=== PATIENT | female | born 1935 | race Caucasian/White ===

== ENCOUNTER 2017-12-22 13:15 | Emergency (ER) | payer MEDICARE, MEDICAID, SELFPAY ==
[2017-12-22 13:42] LABS: Apearance,Urine Cloudy (Clear); Color,Urine Dark Yellow (Yellow); PH,Urine 5.5 (5.0-8.5); Specific Gravity, Urine 1.025 (1.005-1.030)
[2017-12-22 13:43] LABS: Bilirubin,Urine Negative (Negative); Blood, Urine Negative (Negative); Glucose,Urine (UA) Negative (Negative); Ketones,Urine TRACE (Negative); Protein,Urine Negative (Negative); UTC Leukocyte Esterase,Urine Trace (Negative); UTC Nitrate,Urine Negative (Negative); Urobilinogen,Urine 0.2 EU/dl (0.2)
[2017-12-22 13:44] VITALS: BP 148/61; PULSE 89; RESP 18; TEMP 37.2; O2SAT 96; BMI 51.5
--- NOTE | 2017-12-22 13:58 | HMH.EDUTC ---
[facility] [place] Clinical Impression: UTI (urinary tract infection) Qualifiers: Urinary tract infection type: site unspecified Hematuria presence: without hematuria Qualified Code(s): N39.0 - Urinary tract infection, site not specified Disposition: Home, Self-Care Condition on Discharge: Good Instructions: Urinary Tract Infection Additional Instructions: Drink plenty of water and other fluids Follow up with family doctor Return if needed Take medication as prescribed If you begin to have eppisodes of confusion, fever chills or worsening of symptoms go straight to ER Prescriptions: cephALEXin [Keflex 500mg Cap] 500 mg PO Q12H #20 cap Phenazopyridine HCl [Pyridium] 100 mg PO TID #6 tab Referrals: Yahir Pittman MD [Primary Care Provider] - Time of Disposition: 14:15 Medical Decision Making - Medical Records Medical records reviewed: Yes: I reviewed the patient's medical records. Vital Signs: 12/22/17 13:44 Temperature 98.9 F Temperature Source Temporal Artery Scan Pulse Rate [Right Brachial] 89 Respiratory Rate 18 Blood Pressure [Right Arm] 148/61 Blood Pressure Mean [Right Arm] 90 Blood Pressure Source [Right Arm] Automatic Cuff Blood Pressure Position [Right Arm] Sitting 02 Sat by Pulse Oximetry 96 Oxygen Delivery Method Room Air - Lab Data Lab Results 12/22/17 13:38: Urine Color Dark yellow, Urine Appearance Cloudy, Urine pH 5.5, Ur Specific [place] 1.025, Urine Protein Negative, Urine Glucose (UA) Negative, Urine Ketones Trace, Urine Blood Negative, Urine Nitrate Negative, Urine Bilirubin Negative, Urine Urobilinogen 0.2, Ur Leukocyte Esterase Trace - Eddie Inquiry Pt receiving controlled substance: No Eddie was queried for this patient: No [facility] [place] - General Stated complaint: goodwin when urinates Mode of Arrival: Ambulatory Source of Information: Patient Limitations: No Limitations Description of Symptoms (Recalled from Triage Doc. by RN): painful urination HEENT Symptoms (Recalled from RN notes): No Resp Symptoms (Recalled from RN notes): No Skin Symptoms (Recalled from RN notes): No MS Symptoms (Recalled from RN notes): No Functional Status (Recalled from RN notes): n/a - History of Present Illness Provider Complaint: Patient state that she has a history of UTI State that for last couple of days she has been having burning with urination that has continued to get worse State that she noticed that her pee was a funny color and smelled a little strong State that she came in to get checked early before it got to bad - Related Data Previous Rx's Medication Instructions Recorded Phenazopyridine HCl [Pyridium] 100 mg PO TID #6 tab 12/22/17 cephALEXin [Keflex 500mg Cap] 500 mg PO Q12H #20 cap 12/22/17 Allergies Allergy/AdvReac Type Severity Reaction Status Date / Time No Known Allergies Allergy Verified 12/22/17 13:50 - Worker's Comp Is this a Worker's Comp case?: No [facility] History I have reviewed the patient's past medical history: Yes Medical History: Reports:: Diabetes Mellitus Type 2 Denies:: Diabetes Mellitus Type 1 Amputation: No Fractures: No - *Social History Smoking Status: Never smoker Alcohol Intake: never - Psychiatric History Expresses thoughts of harming self/others: None Suicide Plan Description: No Plan ROS Obtained: Yes All systems reviewed & no additional complaints - Genitourinary Female Genitourinary: Reports urinary frequency, Reports urinary urgency Physical Exam - General General appearance: alert, in no apparent distress - ENT ENT exam: Present: normal exam, normal oropharynx, mucous membranes moist, TM's normal bilaterally, normal external ear exam - Respiratory Respiratory exam: Present: normal lung sounds bilaterally. Absent: respiratory distress - Cardiovascular Cardiovascular exam: Present: regular rate, normal rhythm. Absent: JVD - Abdominal Exam Abdominal exam: Present: soft, normal bowel sounds. Abse
--- NOTE | 2017-12-22 14:05 | ED_ITS ---
[facility] [place] Clinical Impression: UTI (urinary tract infection) Qualifiers: Urinary tract infection type: site unspecified Hematuria presence: without hematuria Qualified Code(s): N39.0 - Urinary tract infection, site not specified Disposition: Home, Self-Care Condition on Discharge: Good Instructions: Urinary Tract Infection Additional Instructions: Drink plenty of water and other fluids Follow up with family doctor Return if needed Take medication as prescribed If you begin to have eppisodes of confusion, fever chills or worsening of symptoms go straight to ER Prescriptions: cephALEXin [Keflex 500mg Cap] 500 mg PO Q12H #20 cap Phenazopyridine HCl [Pyridium] 100 mg PO TID #6 tab Referrals: Yahir Pittman MD [Primary Care Provider] - Time of Disposition: 14:15 Medical Decision Making - Medical Records Medical records reviewed: Yes: I reviewed the patient's medical records. Vital Signs: 12/22/17 13:44 Temperature 98.9 F Temperature Source Temporal Artery Scan Pulse Rate [Right Brachial] 89 Respiratory Rate 18 Blood Pressure [Right Arm] 148/61 Blood Pressure Mean [Right Arm] 90 Blood Pressure Source [Right Arm] Automatic Cuff Blood Pressure Position [Right Arm] Sitting 02 Sat by Pulse Oximetry 96 Oxygen Delivery Method Room Air - Lab Data Lab Results 12/22/17 13:38: Urine Color Dark yellow, Urine Appearance Cloudy, Urine pH 5.5, Ur Specific [place] 1.025, Urine Protein Negative, Urine Glucose (UA) Negative, Urine Ketones Trace, Urine Blood Negative, Urine Nitrate Negative, Urine Bilirubin Negative, Urine Urobilinogen 0.2, Ur Leukocyte Esterase Trace - Eddie Inquiry Pt receiving controlled substance: No Eddie was queried for this patient: No [facility] [place] HPI - General Stated complaint: goodwin when urinates Mode of Arrival: Ambulatory Source of Information: Patient Limitations: No Limitations Description of Symptoms (Recalled from Triage Doc. by RN): painful urination HEENT Symptoms (Recalled from RN notes): No Resp Symptoms (Recalled from RN notes): No Skin Symptoms (Recalled from RN notes): No MS Symptoms (Recalled from RN notes): No Functional Status (Recalled from RN notes): n/a - History of Present Illness Provider Complaint: Patient state that she has a history of UTI State that for last couple of days she has been having burning with urination that has continued to get worse State that she noticed that her pee was a funny color and smelled a little strong State that she came in to get checked early before it got to bad - Related Data Previous Rx's Medication Instructions Recorded Phenazopyridine HCl [Pyridium] 100 mg PO TID #6 tab 12/22/17 cephALEXin [Keflex 500mg Cap] 500 mg PO Q12H #20 cap 12/22/17 Allergies Allergy/AdvReac Type Severity Reaction Status Date / Time No Known Allergies Allergy Verified 12/22/17 13:50 - Worker's Comp Is this a Worker's Comp case?: No [facility] History I have reviewed the patient's past medical history: Yes Medical History: Reports:: Diabetes Mellitus Type 2 Denies:: Diabetes Mellitus Type 1 Amputation: No Fractures: No - *Social History Smoking Status: Never smoker Alcohol Intake: never - Psychiatric History Expresses thoughts of harming self/others: None Suicide Plan Description: No Plan ROS Obtained: Yes All systems reviewed
[2017-12-22 14:41] VITALS: BP 148/61; PULSE 89; RESP 18; TEMP 37.1
== END 2017-12-22 14:41 | disposition home or self-care (01) ==
LOC: ER 13:26 → UTC 13:30
PROVIDERS: Emergency Provider Nurse Practitioner; Family Provider Family Medicine; PCP Family Medicine
DX: N39.0 Urinary tract infection, site not specified (principal); E11.9 Type 2 diabetes mellitus without complications; I10 Essential (primary) hypertension
CPT/HCPCS: G0463; 81003; 99201

== ENCOUNTER 2020-05-03 00:02 | Inpatient (IN) | payer MEDICARE, OTHER, SELFPAY ==
[2020-05-02 23:57] VITALS: BMI 39.4
[2020-05-03] VITALS (14 sets, daily range): BP systolic 117–170; BP diastolic 57–90; PULSE 71–116; RESP 16–20; TEMP 36.4–37.3; O2SAT 92–98; BMI 39.4; BMI 36.6
--- NOTE | 2020-05-03 00:10 | CT_ITS ---
PROCEDURE: CT THORACIC SPINE WO CON CLINICAL HISTORY: fall COMPARISON: No exams were available for comparison TECHNIQUE: Axial images obtained with sagittal and coronal reformats. All CT scans at the facility use one or more dose reduction, viz: automated exposure control, ma/kV adjustment per patient size (including targeted exams where dose is matched to indication, i.e. head), or iterative reconstruction technique. FINDINGS: Degenerative midthoracic scoliosis concave to the left is noted. Joint bases are intact. There is no fracture, dislocation, or significant spinal stenosis. Bilateral subcentimeter lung nodules are noted. The soft tissues are intact. Heart enlarged and the pulmonary arteries are prominent. IMPRESSION: Degenerative thoracic scoliosis, no fracture, pulmonary hypertension, cardiomegaly, bilateral lung nodules Dictated by: Ganga Johnson 05/03/2020 08:49 Electronically signed by Ganga Johnson in [place] 05/03/2020 08:49
--- NOTE | 2020-05-03 00:10 | CT_ITS ---
PROCEDURE: CT LUMBAR SPINE WO CON CLINICAL HISTORY: fall COMPARISON: SPLUMBWO CT lumbar spine wo con from 05/08/2018 TECHNIQUE: Axial images obtained with sagittal and coronal reformats. All CT scans at the facility use one or more dose reduction, viz: automated exposure control, ma/kV adjustment per patient size (including targeted exams where dose is matched to indication, i.e. head), or iterative reconstruction technique. FINDINGS: Degenerative lumbar scoliosis with endplate Modic changes and vacuum joint degenerate narrowing of L3-4 is noted. Mild facet arthropathy is demonstrated. There is no fracture or dislocation. There is a broad-based disc osteophyte complex at L3-4 producing mild right neural foraminal and moderate left neural foraminal stenosis and mild central canal stenosis. There is a broad-based disc protrusion at L4-5 producing mild central canal and mild bilateral neural foraminal stenosis. L5-S1 spondylosis noted without significant spondylolisthesis. There are dense vascular calcifications. There are scattered subcentimeter bone islands throughout the sacrum. IMPRESSION: Degenerative lumbar scoliosis, multilevel spinal stenosis as above, no fracture Dictated by: Ganga Johnson 05/03/2020 08:55 Electronically signed by Ganga Johnson in [place] 05/03/2020 08:55
--- NOTE | 2020-05-03 00:10 | XR_ITS ---
PROCEDURE: XR PELVIS 1-2V CLINICAL INDICATION: fall COMPARISON: No exams were available for comparison TECHNIQUE: XR Pelvis AP View FINDINGS: There is mild degenerative narrowing of both hips. There is a probable 1 centimeter right femoral neck bone island. Retroperitoneal sutures noted. SI joints are sclerotic. There are vascular calcifications. Soft tissues are intact. IMPRESSION: No fracture, mild degenerate narrowing of both hips. Note: If a subtle fracture is suspected CT recommended. Dictated by: Ganga Johnson 05/03/2020 08:35 Electronically signed by Ganga Johnson in [place] 05/03/2020 08:35
--- NOTE | 2020-05-03 00:10 | CT_ITS ---
PROCEDURE: CT HEAD/BRAIN WO CON CLINICAL INDICATION: fall COMPARISON: No exams were available for comparison TECHNIQUE: Axial images obtained. All CT scans at the facility use one or more dose reduction, viz: automated exposure control, ma/kV adjustment per patient size (including targeted exams where dose is matched to indication, i.e. head), or iterative reconstruction technique. FINDINGS: Cortical and cerebellar atrophy and moderate subcortical and periventricular white matter lucency is noted. There are dense vascular calcifications. Calvarium and sinuses are unremarkable. There is no definite evidence of hemorrhage. IMPRESSION: Supratentorial microischemia, cortical and cerebellar atrophy Note: If a subtle CVA is suspected then MR scan recommended. Dictated by: Ganga Johnson 05/03/2020 08:39 Electronically signed by Ganga Johnson in [place] 05/03/2020 08:39
--- NOTE | 2020-05-03 00:10 | XR_ITS ---
PROCEDURE: XR CHEST PORTABLE CLINICAL HISTORY: fall COMPARISON: No exams were available for comparison FINDINGS: Heart is enlarged. There is mild degenerative upper thoracic scoliosis. Lung rodgers and soft tissues are intact IMPRESSION: Mild thoracic scoliosis, cardiomegaly, clear lung rodgers Dictated by: Ganga Johnson 05/03/2020 08:36 Electronically signed by Ganga Johnson in [place] 05/03/2020 08:36
--- NOTE | 2020-05-03 00:10 | CT_ITS ---
PROCEDURE: CT CERVICAL SPINE WO CON CLINICAL INDICATION: fall COMPARISON: No exams were available for comparison TECHNIQUE: Axial images obtained with sagittal and coronal reformats. All CT scans at the facility use one or more dose reduction, viz: automated exposure control, ma/kV adjustment per patient size (including targeted exams where dose is matched to indication, i.e. head), or iterative reconstruction technique. Axial spiral CT scanning performed of the cervical spine beginning at the base of the skull and continuing to the upper T-spine. 3-D multiplanar reconstruction with 3-D manipulation of volumetric data set in image rendering was completed by the radiologist and/or technologist with the supervision of the radiologist on independent workstation. FINDINGS: There is good alignment of the bony structures. There is mild degenerative narrowing of the C5-C6 and C6-C7 disc spaces. Multilevel facet arthropathy is demonstrated. Mild degenerative narrowing of the right C3-4 neural foramina is noted. There is moderate degenerative narrowing of the right C4-5 neural foramina. There is moderate degenerative narrowing of the right C5-C6 neural foramina. There is moderate degenerative narrowing of the right C6-7 neural foramina. There is no fracture or dislocation. The lung apices and soft tissues are unremarkable. There are dense vascular calcifications. IMPRESSION: No fracture or dislocation: Multilevel spinal stenosis as above Dictated by: Ganga Johnson 05/03/2020 08:44 Electronically signed by Ganga Johnson in [place] 05/03/2020 08:44
[2020-05-03 00:12] LABS: Basophils % 0.2 % (0.1-2.0); Eosinophils # 0.1 K/mm3 (0.0-0.4); Eosinophils % 0.3 % (0.1-12.0); Hematocrit 45.5 % (37.0-47.0); Hemoglobin 15.4 g/dL (12.2-16.2); Lymphocytes # 0.9 K/mm3 (0.7-4.5); Lymphocytes % 5.1 % (10-50); Mean Corpuscular HGB Conc 33.9 g/dL (31.8-35.4); Mean Corpuscular Hemoglobin 32.5 pg (27.0-31.2); Mean Corpuscular Volume 95.9 fl (81-99); Mean Platelet Volume 7.6 fl (7.4-10.4); Monocytes # 0.9 K/mm3 (0.1-1.0); Monocytes % 5.1 % (1.7-9.3); Neutrophils # 15.3 K/mm3 (1.8-7.8); Neutrophils % 89.2 % (37.0-80.0); Platelet Count 245 K/mm3 (142-424); Red Blood Count 4.75 M/mm3 (4.20-5.40); Red Cell Distribution Width 13.7 % (11.5-17.5); White Blood Count 17.2 K/mm3 (4.8-10.8)
--- NOTE | 2020-05-03 00:14 | ECG_ITS ---
APPROVED REPORT Exam: Resting ECG HR:110 bpm ECG Measurements Heart Rate 110 AXES QRSd 116 QRS 117 QT 342 T -33 QTc 462 <Conclusion> Atrial fibrillation with rapid ventricular response with premature ventricular or aberrantly conducted complexes Right axis deviation Pulmonary disease pattern Incomplete right bundle branch block Possible Right ventricular hypertrophy Septal infarct, age undetermined ST & T wave abnormality, consider inferior ischemia or digitalis effect ST & T wave abnormality, consider anterolateral ischemia or digitalis effect Abnormal ECG Electronically signed by : Yahir Patrick, 05/03/2020 14:05:48
[2020-05-03 00:16] LABS: Alanine Aminotransferase 317 U/L (12-78); Albumin Level 3.9 g/dl (3.5-5.0); Albumin/Globulin Ratio 1.2 (1.1-1.8); Alkaline Phosphatase 149 U/L (38-126); Anion Gap 13.3 mEq/L (5-15); Aspartate Amino Transferase 620 U/L (14-36); Bilirubin,Total 3.2 mg/dl (0.2-1.3); Blood Urea Nitrogen 29 mg/dl (7-17); Calcium 11.3 mg/dl (8.4-10.2); Carbon Dioxide 23 mmol/L (22.0-30.0); Chloride 102 mmol/L (98-107); Creatinine Clearance Estimated 65 mL/min (50-200); Estimated Glomerular Filt Rate 48 ml/min (>60); GFR (African American) 58 ML/MIN (>60); Globulin 3.3 g/dL (1.3-3.2); Glucose 322 mg/dl (74-100); MANUAL DIFFERENTIAL MANUAL DIFFERENTIAL (MANUAL DIFF); Potassium 4.3 mmoL/L (3.5-5.1); Sodium 134 mmol/L (136-145); Total Protein,Serum 7.2 g/dl (6.3-8.2)
[2020-05-03 00:18] LABS: Microscopic, Urine URINE MICROSCOPIC (MICROSCOPIC)
[2020-05-03 00:23] LABS: Prothrombin Time 21.5 seconds (9.4-11.8)
[2020-05-03 00:27] LABS: Appearance,Urine CLEAR (Clear); Blood, Urine Negative (Negative); Color,Urine YELLOW (Yellow); Glucose,Urine (UA) 3+ (Negative); Ketones,Urine Negative (Negative); Leukocyte Esterase,Urine TRACE (Negative); Nitrate,Urine Negative (Negative); PH,Urine 5.5 (5.0-8.5); Protein,Urine Negative (Negative); Specific Gravity, Urine 1.025 (1.005-1.030)
[2020-05-03 00:28] LABS: Bilirubin,Urine Negative (Negative)
[2020-05-03 00:29] LABS: Troponin I < 0.01 ng/ml (0.00-0.034)
--- NOTE | 2020-05-03 00:55 | HMH.EDFALL ---
ED Disposition Clinical Impression: Severe sepsis with acute organ dysfunction, Transaminasemia, Anticoagulated on Coumadin, Renal insufficiency UTI (urinary tract infection) Qualifiers: Urinary tract infection type: site unspecified Hematuria presence: without hematuria Qualified Code(s): N39.0 - Urinary tract infection, site not specified A-fib Qualifiers: Atrial fibrillation type: unspecified chronic Qualified Code(s): I48.20 - Chronic atrial fibrillation, unspecified Diabetes Qualifiers: Diabetes mellitus type: type 2 Diabetes mellitus senior living insulin use: unspecified exterminator termite insulin use status Diabetes mellitus complication status: with other specified complication Qualified Code(s): E11.69 - Type 2 diabetes mellitus with other specified complication Disposition: Admitted As Inpatient Condition on Discharge: Fair Referrals: Yahir Pittman MD [Primary Care Provider] - - Critical Care Critical Care Time: No Attestation: On 05/03/20, the high probability of a clinically significant, sudden or life threatening deterioration of the following system(s) required my full and direct attention, intervention and personal management. The time I documented below is in addition to time spent performing reported procedures but includes the following listed in this critical care notation. Medical Decision Making - Medical Records Medical records reviewed: Yes: I reviewed the patient's medical records. - Eddie Inquiry Pt receiving controlled substance: No Vital Signs: 05/03/20 00:01 05/03/20 01:00 05/03/20 01:50 Temperature 98.3 F Temperature Source Oral Pulse Rate [Right Brachial] 116 H 92 H 80 Respiratory Rate 16 Blood Pressure [Right Arm] 117/57 L 123/65 130/70 Blood Pressure Mean [Right Arm] 77 84 90 Blood Pressure Source [Right Arm] Automatic Cuff Automatic Cuff Automatic Cuff Blood Pressure Position [Right Arm] Sitting Sitting Sitting 02 Sat by Pulse Oximetry 93 L 94 L 94 L Oxygen Delivery Method Room Air Room Air Room Air 05/03/20 02:08 05/03/20 02:32 Temperature Temperature Source Pulse Rate [Right Brachial] 92 H 90 Respiratory Rate Blood Pressure [Right Arm] 136/69 126/70 Blood Pressure Mean [Right Arm] 91 88 Blood Pressure Source [Right Arm] Automatic Cuff Blood Pressure Position [Right Arm] Sitting 02 Sat by Pulse Oximetry 94 L 95 Oxygen Delivery Method Room Air Room Air - Lab Data Lab results reviewed: Yes: I reviewed the patient's lab results. Lab Results 05/02/20 23:57: WBC 17.2 H, RBC 4.75, Hgb 15.4, Hct 45.5, MCV 95.9, MCH 32.5 H, MCHC 33.9, RDW 13.7, Plt Count 245, MPV 7.6, Neut % (Auto) 89.2 H, Lymph % (Auto) 5.1 L, [place] % (Auto) 5.1, Eos % (Auto) 0.3, Baso % (Auto) 0.2, Neut # (Auto) 15.3 H, Lymph # (Auto) 0.9, [place] # (Auto) 0.9, Eos # (Auto) 0.1, Baso # (Auto) 0.0, Total Counted 100, Neutrophils % (Manual) 89 H, Band Neutrophils % 1.0, Lymphocytes % (Manual) 8 L, Monocytes % (Manual) 2, Platelet Estimate Normal, RBC Morphology Not Reportable, Stomatocytes 1+ 05/02/20 23:57: Sodium 134 L, Potassium 4.3, Chloride 102, Carbon Dioxide 23, Anion Gap 13.3, BUN 29 H, Creatinine 1.10 H, Estimated Creat Clear 65, Estimated GFR 48 L, Est GFR ( Amer) 58 L, Glucose 322 H, Calcium 11.3 H, Total Bilirubin 3.2 H, AST 620 H*, ALT 317 H*, Alkaline Phosphatase 149 H, Troponin I < 0.01, Total Protein 7.2, Albumin 3.9, Globulin 3.3 H, Albumin/Globulin Ratio 1.2 05/03/20 00:00: PT 21.5 H, INR 2.20 H 05/03/20 00:00: TSH 1.39, Thyroxine (T4) 10.0 05/03/20 00:05: Urine Color Yellow, Urine Appearance Clear, Urine pH 5.5, Ur Specific [place] 1.025, Urine Protein Negative, Urine Glucose (UA) 3+, Urine Ketones Negative, Urine Blood Negative, Urine Nitrate Negative, Urine Bilirubin Negative, Urine Urobilinogen 1.0, Ur Leukocyte Esterase Trace, Urine WBC 10-20, Urine Bacteria 4+ 05/03/20 00:20: Lactate 2.7 H 05/03/20 02:10: Chlamy pneumoniae PCR Not detected, Adenovirus (PCR) Not detected, B. pertus
[2020-05-03 01:00] LABS: Bacteria,Urine 4+ /lpf
--- NOTE | 2020-05-03 01:12 | CT_ITS ---
PROCEDURE: CT ABDOMEN PELVIS WO CON CLINICAL INDICATION: liver enzymes COMPARISON: No exams were available for comparison TECHNIQUE: Axial images obtained with sagittal and coronal reformats. All CT scans at the facility use one or more dose reduction, viz: automated exposure control, ma/kV adjustment per patient size (including targeted exams where dose is matched to indication, i.e. head), or iterative reconstruction technique. FINDINGS: There are scattered mostly subcentimeter noncalcified lung nodules of which the largest is in the right lung base, is pleural-based, and measures 23 millimeters x 15 millimeters. Heart is enlarged. The unenhanced liver is unremarkable. Gallstones are present. The adrenal glands, pancreas, and spleen is unremarkable. The patient is status post left nephrectomy. Multiple right renal cysts are demonstrated of which the largest is in the lower pole measuring 15.6 millimeters. The aorta, small and large bowel and appendix is unremarkable. Soft tissues are intact. Degenerative lumbar scoliosis is noted. CT scan of the pelvis without contrast: Patient is status posthysterectomy. There is an indwelling Mcneal catheter within the decompressed bladder. Sigmoid diverticulosis is noted. Soft tissues and bony structures are unremarkable.. 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 Multiple right renal cysts Dictated by: Ganga Johnson 05/03/2020 08:34 Electronically signed by Ganga Johnson in [place] 05/03/2020 08:34
[2020-05-03 01:18] LABS: Lymphocytes % 8 % (10-50); Monocytes % 2 % (2-9); Neutrophils % 89 % (42-76); Platelet Estimate Normal; Stomatocytes 1+; Total Cells Counted 100
[2020-05-03 01:43] LABS: Lactic Acid 2.7 mmol/L (0.7-2.1)
--- NOTE | 2020-05-03 01:57 | PC.NURSE ---
call placed to lab re: order for covid test
[2020-05-03 02:03] LABS: Thyroid Stimulating Hormone 1.39 uIU/mL (0.465-4.68)
[2020-05-03 02:26] LABS: Adenovirus,PCR Not Detected (NotDetected); Bordetella Pertussis Not Detected (NotDetected); Chlamydophila Pneumoniae, PCR Not Detected (NotDetected); Coronavirus 19, PCR Not Detected (NotDetected); Coronavirus 229E Not Detected (NotDetected); Coronavirus NL63 Not Detected (NotDetected); Coronavirus OC43 Not Detected (NotDetected); Coronovirus HKU1,PCR Not Detected (NotDetected); Human Metapneumovirus Not Detected (NotDetected); Influenza A, PCR Not Detected (NotDetected); Influenza AH1, 2009 Not Detected (NotDetected); Influenza AH1, PCR Not Detected (NotDetected); Influenza AH3,PCR Not Detected (NotDetected); Influenza B, PCR Not Detected (NotDetected); Mycoplasma Pneumoniae, PCR Not Detected (NotDected); Parainfluenza 1, PCR Not Detected (NotDetected); Parainfluenza 2, PCR Not Detected (NotDetected); Parainfluenza 3, PCR Not Detected (NotDetected); Parainfluenza 4, PCR Not Detected (NotDetected); Respiratory Syncytial Virus Not Detected (NotDetected); Rhinovirus/Enterovirus Not Detected (NotDetected)
--- NOTE | 2020-05-03 03:31 | PC.NURSE ---
pt agitated and obvious altered mentation. vss. pt refuses to leave bp cuff on arm. frequently yells out I have to pee despite being told repeatedly that she has a cote catheter in place, as well as a UTI diagnosis she has been treated for this shift. GCS 13. Follows commands when staff is at bedside but after staff leaves room, begins hollering out again. Call light has been in place since triage unless she was in staff presence. REiterated how to use multiple times. Remains in reach at this time. SR's up x 2. Patient within visual range of ER staff.
[2020-05-03 03:50] LABS: Troponin I 0.02 ng/ml (0.00-0.034)
[2020-05-03 04:20] LABS: Reflex Lactic Add Lactic Reflex
[2020-05-03 05:16] LABS: Lactic Acid Follow Up (RFLX 1) 2.2 mmol/L (0.7-2.1)
[2020-05-03 06:02] LABS: POC Glucose,Bedside 231 (70-110)
[2020-05-03 07:00] LABS: Reflex Lactic (2 hrs) Add Lactic Reflex
--- NOTE | 2020-05-03 07:04 | HMH.PHAVTE ---
[facility] VTE Monitoring - Patient Demographics Admission date: 05/03/20 Report Date: 05/03/20 Time: 07:04 Allergies/Adverse Reactions: Patient Allergies No Known Allergies Allergy (Verified 05/03/20 00:44) Height: 1.63 m Weight: 97.267 kg Patient Problems: Current Active Problems UTI (urinary tract infection) (Acute) Anticoagulated on Coumadin (Acute) Severe sepsis with acute organ dysfunction (Acute) A-fib (Acute) Transaminasemia (Acute) Diabetes (Acute) Renal insufficiency (Acute) - VTE Risk Labs: VTE Related Lab Results Hgb 15.4 g/dL (12.2-16.2) 05/02/20 23:57 Hct 45.5 % (37.0-47.0) 05/02/20 23:57 Plt Count 245 K/mm3 (142-424) 05/02/20 23:57 PT 21.5 seconds (9.4-11.8) H 05/03/20 00:00 INR 2.20 (0.9-1.1) H 05/03/20 00:00 BUN 29 mg/dl (7-17) H 05/02/20 23:57 Creatinine 1.10 mg/dl (0.52-1.04) H 05/02/20 23:57 Estimated Creat Clear 65 mL/min (50-200) 05/02/20 23:57 Was VTE Risk Assessment Performed: Yes VTE Score: 3 VTE Risk Level: Low Risk - Prophylaxis VTE Prophylaxis Ordered?: Yes Types of VTE Prophylaxis: TEDS Knee High, Pharmacological Location of Applied Device: Bilateral Lower Extremeties Pharmacologic Type: Warfarin - VTE Diagnosis Confirmed Treatment or plan recommended: Continue Current Treatment
[2020-05-03 07:05] LABS: Basophils % 0.2 % (0.1-2.0); Eosinophils # 0.1 K/mm3 (0.0-0.4); Eosinophils % 0.3 % (0.1-12.0); Hemoglobin 14.9 g/dL (12.2-16.2); Lymphocytes # 1.1 K/mm3 (0.7-4.5); Lymphocytes % 7.4 % (10-50); Mean Corpuscular HGB Conc 33.8 g/dL (31.8-35.4); Mean Corpuscular Hemoglobin 32.8 pg (27.0-31.2); Mean Corpuscular Volume 97.1 fl (81-99); Monocytes # 0.6 K/mm3 (0.1-1.0); Monocytes % 3.7 % (1.7-9.3); Neutrophils # 13.4 K/mm3 (1.8-7.8); Neutrophils % 88.5 % (37.0-80.0); Platelet Count 228 K/mm3 (142-424); Red Blood Count 4.53 M/mm3 (4.20-5.40); White Blood Count 15.2 K/mm3 (4.8-10.8)
[2020-05-03 07:06] LABS: Chloride 100 mmol/L (98-107); Potassium 3.8 mmoL/L (3.5-5.1); Sodium 136 mmol/L (136-145)
[2020-05-03 07:09] LABS: Alanine Aminotransferase 448 U/L (12-78); Albumin Level 3.9 g/dl (3.5-5.0); Albumin/Globulin Ratio 1.3 (1.1-1.8); Alkaline Phosphatase 107 U/L (38-126); Anion Gap 13.8 mEq/L (5-15); Aspartate Amino Transferase 676 U/L (14-36); Bilirubin,Total 4.1 mg/dl (0.2-1.3); Blood Urea Nitrogen 23 mg/dl (7-17); Calcium 10.8 mg/dl (8.4-10.2); Carbon Dioxide 26 mmol/L (22.0-30.0); Creatinine Clearance Estimated 67 mL/min (50-200); Estimated Glomerular Filt Rate 53 ml/min (>60); GFR (African American) 64 ML/MIN (>60); Globulin 3.1 g/dL (1.3-3.2); Glucose 214 mg/dl (74-100)
--- NOTE | 2020-05-03 07:09 | HMH.HP ---
*Admission Date: 05/03/20 *Chief complaint: Fall at home *History of present illness: 84-year-old female with history of atrial fibrillation and diabetes presented to the emergency department by ambulance after a fall at home. Patient reports malaise for the last 2 days without fevers or chills. She admits she was getting progressively weaker at home and patient's functional status is already impaired. Patient fell although she admits she does not exactly recall the events of the fall. EMS was called. Patient was found down on the floor when they arrived. Patient was brought to the ER. Work-up in the ER has revealed a urinary tract infection and patient met sepsis criteria and was treated as such. Patient has been admitted on Invanz. Patient herself denies any dysuria, urinary frequency or urgency although she admits the Mcneal catheter that is now present gives her the sensation of needing to urinate. She denies cough, shortness of breath, chest pain, abdominal pain, diarrhea. She does report some back pain. [facility] History I have reviewed the patient's past medical history: Yes Medical History: Reports:: Atrial Fibrillation, Congestive Heart Failure, Diabetes Mellitus Type 2, Hyperlipidemia, Hypertension Denies:: Cancer, Diabetes Mellitus Type 1, MRSA *Have you ever received a pneumonia vaccine?: No *Have you received a flu vaccine this season?: No Other Medical History: Reports: Arthritis Other Surgeries: Yes: No Previous Surgery Amputation: No Fractures: No - *Social History Educational Level: Completed Grade School Smoking Status: Never smoker Alcohol Intake: never *Occupational Status:: retired Housing: house Household Members: spouse *Travel in the last 8 weeks: None Family Hx:: Hyperlipidemia, Hypertension Review of Systems - Review of Systems Review of systems:: pertinent systems reviewed and negative unless documented below - *Neurologic Reports weakness, Denies localized weakness, Denies seizure-like activity Meds Home Medications Medication Instructions Recorded Confirmed Type Amlodipine Besylate [Amlodipine 10 mg PO DAILY 05/03/20 05/03/20 History 10mg Tab] Dapagliflozin Propanediol [Farxiga] 5 mg PO DAILY 05/03/20 05/03/20 History Furosemide [Furosemide 20mg Tab] 20 mg PO DAILY 05/03/20 05/03/20 History Labetalol HCl 200 mg PO BID 05/03/20 05/03/20 History Levothyroxine Sodium 100 mcg PO DAILY 05/03/20 05/03/20 History [Levothyroxine 100mcg (0.1MG) Tab] Sitagliptin Phosphate [Januvia 100 mg PO DAILY 05/03/20 05/03/20 History 100mg tablet] Warfarin Sodium 2.5 mg PO DAILY 05/03/20 05/03/20 History diazePAM [diazePAM 5mg Tablet] 5 mg PO QID 05/03/20 05/03/20 History glipiZIDE [Glipizide] 10 mg PO BID 05/03/20 05/03/20 History lisinopriL [Lisinopril 20mg Tab] 20 mg PO DAILY 05/03/20 05/03/20 History Allergies Allergy/AdvReac Type Severity Reaction Status Date / Time No Known Allergies Allergy Verified 05/03/20 00:44 Exam Vital signs and Labs for Last 24 Hours: Temp Pulse Resp BP Pulse Ox 98.2 F 90 16 121/81 95 05/03/20 04:13 05/03/20 05:20 05/03/20 04:13 05/03/20 04:13 05/03/20 04:40 Laboratory Results - last 24 hr 05/02/20 23:57: WBC 17.2 H, RBC 4.75, Hgb 15.4, Hct 45.5, MCV 95.9, MCH 32.5 H, MCHC 33.9, RDW 13.7, Plt Count 245, MPV 7.6, Neut % (Auto) 89.2 H, Lymph % (Auto) 5.1 L, [place] % (Auto) 5.1, Eos % (Auto) 0.3, Baso % (Auto) 0.2, Neut # (Auto) 15.3 H, Lymph # (Auto) 0.9, [place] # (Auto) 0.9, Eos # (Auto) 0.1, Baso # (Auto) 0.0, Total Counted 100, Neutrophils % (Manual) 89 H, Band Neutrophils % 1.0, Lymphocytes % (Manual) 8 L, Monocytes % (Manual) 2, Platelet Estimate Normal, RBC Morphology Not Reportable, Stomatocytes 1+ 05/02/20 23:57: Sodium 134 L, Potassium 4.3, Chloride 102, Carbon Dioxide 23, Anion Gap 13.3, BUN 29 H, Creatinine 1.10 H, Estimated Creat Clear 65, Estimated GFR 48 L, Est GFR ( Amer) 58 L, Glucose 322 H, Calcium 11.3 H, Total Bilirubin 3.2
[2020-05-03 07:12] LABS: Lactic Acid Follow up (RFLX 2) 2.3 mmol/L (0.7-2.1)
--- NOTE | 2020-05-03 09:29 | HMH.PHAINT ---
MEDICATION RECONCILIATION COMPLETED ON PATIENT USING EXTERNAL FILL HISTORY FROM PHARMACY AND LIST FROM MD OFFICE. -VITO TUTTLED
--- NOTE | 2020-05-03 10:54 | PC.NURSE ---
Pt is restless, pulling off gown, trying to get out of bed, demanding bedpan for urination, refusing IV fluids. Bedpan provided with cote catheter in place, IVF disconnected for now. Reminded pt that she has cote in place, need for IVF, and that she will fall if she rises from bed. Pt is belligerent and confused.
[2020-05-03 11:05] LABS: POC Glucose,Bedside 166 (70-110)
[2020-05-03 16:03] LABS: POC Glucose,Bedside 139 (70-110)
[2020-05-03 20:14] LABS: POC Glucose,Bedside 250 (70-110)
[2020-05-03 21:47] LABS: Amphetamine/Metha Screen,Urine Negative ng/ml (<1000); Barbiturates Screen,Urine Negative ng/ml (<200)
[2020-05-03 21:48] LABS: Benzodiazepines Screen,Urine Positive ng/ml (<200)
[2020-05-03 21:49] LABS: Cannabinoid Screen,Urine Negative ng/ml (<50); Cocaine Screen,Urine Negative ng/ml (<300)
[2020-05-03 21:50] LABS: Methadone Screen,Urine Negative ng/ml (<300)
[2020-05-03 21:51] LABS: Opiate Screen,Urine Negative ng/ml (<300); Phencyclidine Screen,Urine Negative ng/ml (<25)
[2020-05-04] VITALS (7 sets, daily range): BP systolic 117–166; BP diastolic 53–88; PULSE 68–102; RESP 17–22; TEMP 36.6–38.1; O2SAT 93–95; BMI 36.4; BMI 36.5
--- NOTE | 2020-05-04 05:06 | PC.NURSE ---
pt is only oriented to self. Pt is clear throughout, on RA. 16G RAC with NS@100 mls. PRN anixety meds have been given when available. F/C draining yellow urine to gravity. Bed alarm activated.
[2020-05-04 05:37] LABS: POC Glucose,Bedside 202 (70-110)
[2020-05-04 05:56] LABS: Basophils % 0.4 % (0.1-2.0); Eosinophils # 0.1 K/mm3 (0.0-0.4); Eosinophils % 1.2 % (0.1-12.0); Hematocrit 44.5 % (37.0-47.0); Hemoglobin 14.7 g/dL (12.2-16.2); Lymphocytes # 0.9 K/mm3 (0.7-4.5); Mean Corpuscular HGB Conc 32.9 g/dL (31.8-35.4); Mean Corpuscular Hemoglobin 32.2 pg (27.0-31.2); Mean Corpuscular Volume 97.7 fl (81-99); Mean Platelet Volume 7.7 fl (7.4-10.4); Monocytes # 0.5 K/mm3 (0.1-1.0); Neutrophils # 8.5 K/mm3 (1.8-7.8); Neutrophils % 84.4 % (37.0-80.0); Platelet Count 189 K/mm3 (142-424); Red Blood Count 4.55 M/mm3 (4.20-5.40); Red Cell Distribution Width 14.2 % (11.5-17.5); White Blood Count 10.1 K/mm3 (4.8-10.8)
[2020-05-04 06:02] LABS: Chloride 107 mmol/L (98-107); Potassium 3.9 mmoL/L (3.5-5.1); Sodium 137 mmol/L (136-145)
[2020-05-04 06:04] LABS: Blood Urea Nitrogen 15 mg/dl (7-17); Creatinine Clearance Estimated 66 mL/min (50-200); Estimated Glomerular Filt Rate 69 ml/min (>60); GFR (African American) 83 ML/MIN (>60)
[2020-05-04 06:05] LABS: Alanine Aminotransferase 368 U/L (12-78); Albumin Level 3.5 g/dl (3.5-5.0); Alkaline Phosphatase 107 U/L (38-126); Anion Gap 6.9 mEq/L (5-15); Aspartate Amino Transferase 276 U/L (14-36); Bilirubin, Conjugated 0.3 mg/dL (0.0-0.3); Bilirubin,Direct 1.7 mg/dl (0.0-0.4); Bilirubin,Indirect 0.7 mg/dL (0.0-0.9); Bilirubin,Total 2.4 mg/dl (0.2-1.3); Bilirubin,Unconjugated 0.7 mg/dL (0.0-1.1); Calcium 10.3 mg/dl (8.4-10.2); Carbon Dioxide 27 mmol/L (22.0-30.0); Glucose 202 mg/dl (74-100); Total Protein,Serum 6.4 g/dl (6.3-8.2)
--- NOTE | 2020-05-04 08:22 | HMH.ACPN2 ---
Internal Medicine - PN: Subj *Date: 05/04/20 *Time: 08:22 Interval history: Patient reports feeling weak. Patient became confused and agitated yesterday but responded well to her home dose of Valium. This morning patient does not have any specific pain complaints. She denies shortness of breath. Exam Vital signs and Labs for Last 24 Hours: Temp Pulse Resp BP Pulse Ox 100.5 F H 102 H 18 144/84 H 93 L 05/04/20 04:00 05/04/20 04:00 05/04/20 04:00 05/04/20 04:00 05/04/20 04:00 Laboratory Results - last 24 hr 05/03/20 00:05: Urine Color Yellow, Urine Appearance Clear, Urine pH 5.5, Ur Specific [place] 1.025, Urine Protein Negative, Urine Glucose (UA) 3+, Urine Ketones Negative, Urine Blood Negative, Urine Nitrate Negative, Urine Bilirubin Negative, Urine Urobilinogen 1.0, Ur Leukocyte Esterase Trace, Urine WBC 10-20, Urine Bacteria 4+ 05/03/20 00:15: Urine Opiates Screen Negative, Urine Methadone Screen Negative, Ur Barbituates Screen Negative, Ur Phencyclidine Scrn Negative, Ur Amphetamines Screen Negative, U Benzodiazepines Scrn Positive H, Urine Cocaine Screen Negative, U Marijuana (THC) Screen Negative 05/03/20 10:59: POC Glucose 166 H 05/03/20 15:56: POC Glucose 139 H 05/03/20 19:54: POC Glucose 250 H 05/04/20 05:24: POC Glucose 202 H 05/04/20 05:46: WBC 10.1 D, RBC 4.55, Hgb 14.7, Hct 44.5, MCV 97.7, MCH 32.2 H, MCHC 32.9, RDW 14.2, Plt Count 189, MPV 7.7, Neut % (Auto) 84.4 H, Lymph % (Auto) 9.0 L, [place] % (Auto) 5.0, Eos % (Auto) 1.2, Baso % (Auto) 0.4, Neut # (Auto) 8.5 H, Lymph # (Auto) 0.9, [place] # (Auto) 0.5, Eos # (Auto) 0.1, Baso # (Auto) 0.0 05/04/20 05:46: Sodium 137, Potassium 3.9, Chloride 107, Carbon Dioxide 27, Anion Gap 6.9, BUN 15 D, Creatinine 0.80, Estimated Creat Clear 66, Estimated GFR 69, Est GFR ( Amer) 83 D, Glucose 202 H, Calcium 10.3 H, Total Bilirubin 2.4 H, Direct Bilirubin 1.7 H, Conjugated Bilirubin 0.3, Indirect Bilirubin 0.7, Unconjugated Bilirubin 0.7, AST 276 H D, ALT 368 H*, Alkaline Phosphatase 107, Total Protein 6.4, Albumin 3.5 D I & O for Last 24 hours: Intake & Output 05/01/20 05/02/20 05/03/20 05/04/20 11:59 11:59 11:59 11:59 Intake Total 1290 / 1290 805 / 805 Output Total 450 / 450 2100 / 2100 Balance 840 / 840 -1295 / -1295 Weight 214 lb 7 oz 213 lb 9 oz Microbiology Reports for the Last 24 Hours: Microbiology 05/03/20 00:20 Blood Blood Culture - Preliminary Gram Positive Cocci Gram Negative Rods 05/03/20 00:20 Blood Blood Culture - Preliminary Gram Negative Rods 05/03/20 00:05 Urine,Clean Catch Urine Culture - Preliminary Gram Negative Rods Narrative: Patient looks comfortable and in no distress. Lungs are clear. Heart has a regular rate and rhythm. Abdomen is obese and soft. Mcneal catheter is anchored. Transaminases are improving. White count has returned to normal Assessment and Plan (1) Severe sepsis with acute organ dysfunction Current visit: Yes Status: Acute Category: Medical Code(s): A41.9 - Sepsis, unspecified organism; R65.20 - Severe sepsis without septic shock (2) UTI (urinary tract infection) Current visit: Yes Status: Acute Qualifiers: Urinary tract infection type: site unspecified Hematuria presence: without hematuria Qualified Code(s): N39.0 - Urinary tract infection, site not specified Category: Medical Code(s): N39.0 - Urinary tract infection, site not specified (3) A-fib Current visit: Yes Status: Chronic Qualifiers: Atrial fibrillation type: unspecified chronic Qualified Code(s): I48.20 - Chronic atrial fibrillation, unspecified Category: Medical Code(s): I48.91 - Unspecified atrial fibrillation (4) Anticoagulated on Coumadin Current visit: Yes Status: Acute Category: Medical Code(s): Z51.81 - Encounter for therapeutic drug level monitor
--- NOTE | 2020-05-04 09:34 | HMH.PHACONS ---
- Pharmacy Consult Date: 05/04/20 Time: 09:34 Referring provider: DR. MATHEWS/DR. GILBERT Reason for Consult:: VANCOMYCIN DOSING Allergies and ADEs:: Allergies Allergy/AdvReac Type Severity Reaction Status Date / Time No Known Allergies Allergy Verified 05/03/20 00:44 Home Medications:: Home Medications Medication Instructions Recorded Confirmed Type Amlodipine Besylate [Amlodipine 10 mg PO DAILY 05/03/20 05/03/20 History 10mg Tab] Dapagliflozin Propanediol [Farxiga] 5 mg PO DAILY 05/03/20 05/03/20 History Furosemide [Furosemide 20mg Tab] 20 mg PO DAILY 05/03/20 05/03/20 History Labetalol HCl 200 mg PO BID 05/03/20 05/03/20 History Levothyroxine Sodium 100 mcg PO DAILY 05/03/20 05/03/20 History [Levothyroxine 100mcg (0.1MG) Tab] Sitagliptin Phosphate [Januvia 100 mg PO DAILY 05/03/20 05/03/20 History 100mg tablet] Warfarin Sodium 1 mg PO DAILY 05/03/20 05/03/20 History Warfarin Sodium 2.5 mg PO DAILY 05/03/20 05/03/20 History diazePAM [diazePAM 5mg Tablet] 5 mg PO QID 05/03/20 05/03/20 History glipiZIDE [Glipizide] 10 mg PO BID 05/03/20 05/03/20 History lisinopriL [Lisinopril 20mg Tab] 20 mg PO DAILY 05/03/20 05/03/20 History Height: 1.63 m Weight: 96.87 kg Laboratory Results:: Laboratory Results - last 24 hr 05/03/20 00:05: Urine Color Yellow, Urine Appearance Clear, Urine pH 5.5, Ur Specific [place] 1.025, Urine Protein Negative, Urine Glucose (UA) 3+, Urine Ketones Negative, Urine Blood Negative, Urine Nitrate Negative, Urine Bilirubin Negative, Urine Urobilinogen 1.0, Ur Leukocyte Esterase Trace, Urine WBC 10-20, Urine Bacteria 4+ 05/03/20 00:15: Urine Opiates Screen Negative, Urine Methadone Screen Negative, Ur Barbituates Screen Negative, Ur Phencyclidine Scrn Negative, Ur Amphetamines Screen Negative, U Benzodiazepines Scrn Positive H, Urine Cocaine Screen Negative, U Marijuana (THC) Screen Negative 05/03/20 10:59: POC Glucose 166 H 05/03/20 15:56: POC Glucose 139 H 05/03/20 19:54: POC Glucose 250 H 05/04/20 05:24: POC Glucose 202 H 05/04/20 05:46: WBC 10.1 D, RBC 4.55, Hgb 14.7, Hct 44.5, MCV 97.7, MCH 32.2 H, MCHC 32.9, RDW 14.2, Plt Count 189, MPV 7.7, Neut % (Auto) 84.4 H, Lymph % (Auto) 9.0 L, [place] % (Auto) 5.0, Eos % (Auto) 1.2, Baso % (Auto) 0.4, Neut # (Auto) 8.5 H, Lymph # (Auto) 0.9, [place] # (Auto) 0.5, Eos # (Auto) 0.1, Baso # (Auto) 0.0 05/04/20 05:46: Sodium 137, Potassium 3.9, Chloride 107, Carbon Dioxide 27, Anion Gap 6.9, BUN 15 D, Creatinine 0.80, Estimated Creat Clear 66, Estimated GFR 69, Est GFR ( Amer) 83 D, Glucose 202 H, Calcium 10.3 H, Total Bilirubin 2.4 H, Direct Bilirubin 1.7 H, Conjugated Bilirubin 0.3, Indirect Bilirubin 0.7, Unconjugated Bilirubin 0.7, AST 276 H D, ALT 368 H*, Alkaline Phosphatase 107, Total Protein 6.4, Albumin 3.5 D Medical History: Reports:: Atrial Fibrillation, Congestive Heart Failure, Diabetes Mellitus Type 2, Hyperlipidemia, Hypertension Denies:: Cancer, Diabetes Mellitus Type 1, MRSA Assessment and Plan (1) Severe sepsis with acute organ dysfunction Current visit: Yes Status: Acute Category: Medical Code(s): A41.9 - Sepsis, unspecified organism; R65.20 - Severe sepsis without septic shock (2) UTI (urinary tract infection) Current visit: Yes Status: Acute Qualifiers: Urinary tract infection type: site unspecified Hematuria presence: without hematuria Qualified Code(s): N39.0 - Urinary tract infection, site not specified Category: Medical Code(s): N39.0 - Urinary tract infection, site not specified (3) A-fib Current visit: Yes Status: Chronic Qualifiers: Atrial fibrillation type: unspecified chronic Qualified Code(s): I48.20 - Chronic atrial fibrillation, unspecified Category: Medical Code(s): I48.91 - Unspecified atrial fibrillation (4) Anticoagulated on Coumadin Current visit: Yes Status: Acute Category: Medical Code(s): Z51.81 - Encounter for therapeutic drug level monitoring; Z79.01
--- NOTE | 2020-05-04 11:08 | HMH.PTEV ---
Physical Therapy Evaluation Rehab PT IP Evaluation Start: 05/04/20 09:39 Freq: ONCE Status: Active Protocol: Document 05/04/20 11:00 MADELYN (Rec: 05/04/20 11:08 PWGAL [id number]) Subjective/History History History This is the initial IP PT evaluation for Abigail San. Pt is an 84 y/o female who resides at home w/ spouse. Pt was admitted to [facility] through ER for AMS, UTI, and sepsis. Pt has pmh of dementia. Subjective Subjective Pt reports pain in hips and knees Rehab PT IP Eval Objective Appearance Patient Behavior Cooperative Patient Orientation Person,Place,Birthday Difficulty following instructions mild Speech Pattern Appropriate,Soft-Spoken Ambulation Patient Able to Ambulate Yes Ambulation Observation IP General Gait Pattern Observation Wide Based Gait,Ataxic Gait, Shuffling Step Ambulation Distance (feet) 10 Ambulation Assistive Device Rolling Walker Ambulation Ability Moderate x 1 (50% assist) Balance Ability to Arise Able, uses arms to help Sitting Balance Leans or slides in chair Standing Balance Unsteady Dynamic Sitting Balance Ability Fair Dynamic Standing Balance Ability Poor Transfers Bed Transfer Ability Supervision/Stand by,Contact Guard/Hand Hold Chair Transfer Ability Supervision/Stand by,Contact Guard/Hand Hold Sit to Stand Bed Transfer Ability Supervision/Stand by,Contact Guard/Hand Hold Sit to Stand Chair Transfer Ability Supervision/Stand by,Contact Guard/Hand Hold Rehab PT IP prob,goals,plan Problems Date of Evaluation: 05/04/20 PT IP Problems Transfers,Gait,Balance,Self care,Safety Rehab Potential Rehab Potential Poor Equipment Needs Assistive Devices Rolling / Wheeled Walker Plan PT Intervention Plan Transfers,Gait,Therapeutic Exercise PT Plan Frequency BID Duration LOS Discharge Goals Bed Transfer Ability Contact Guard/Hand Hold Sit to Stand Chair Transfer Ability Contact Guard/Hand Hold Ambulation Assistive Device Rolling Walker Ambulation Distance (feet) 15 Discharge Plan PT Discharge Plan Pt is very weak and debilitated but therapist questions how close to
[2020-05-04 11:33] LABS: POC Glucose,Bedside 183 (70-110)
--- NOTE | 2020-05-04 14:01 | PC.NURSE ---
Patient taken out of isolation per Jone Boggs RN due to lab confirmation that blood cx result is contaminated.
[2020-05-04 16:41] LABS: POC Glucose,Bedside 216 (70-110)
--- NOTE | 2020-05-04 16:48 | PC.NURSE ---
PATIENT IS RESTING IN BED AT THIS TIME. WHEN SHE WAKES UP SHE IS UNAWARE OF HER SURROUNDINGS AND CALLS OUT. OTHERWISE SHE IS A&O TO PERSON AND PLACE. SHE HAS BEEN UP TO BSC SEVERAL TIMES TODAY BUT IS UNABLE TO HAVE A BM. SAT IN RECLINER FOR ABOUT 2 HOURS TODAY. CALL LIGHT WITHIN REACH WILL CONTINUE TO MONITOR.
--- NOTE | 2020-05-04 19:10 | PC.NURSE ---
report given to rick
[2020-05-04 21:18] LABS: POC Glucose,Bedside 235 (70-110)
--- NOTE | 2020-05-04 21:31 | PC.NURSE ---
Pt's room air sat at rest = 94%.
--- NOTE | 2020-05-05 03:28 | PC.NURSE ---
Pt is oriented to self,place. Pt lungs are clear throughout denies any SOA. Pt complain of aching all over medicated with PRN pain med, on reassessment pt resting comfortably. F/C draining yellow urine. Pt has ambulated several times to BSC for have a BM but has not been successful. Pt is passing gas.
[2020-05-05 04:00] VITALS: BP 138/67; PULSE 98; RESP 16; TEMP 36.6; O2SAT 92
[2020-05-05 05:00] VITALS: BMI 36.7
[2020-05-05 05:53] LABS: POC Glucose,Bedside 201 (70-110)
[2020-05-05 06:05] LABS: Basophils % 0.5 % (0.1-2.0); Eosinophils # 0.1 K/mm3 (0.0-0.4); Eosinophils % 1.3 % (0.1-12.0); Hematocrit 38.6 % (37.0-47.0); Lymphocytes # 1.4 K/mm3 (0.7-4.5); Lymphocytes % 15.1 % (10-50); Mean Corpuscular HGB Conc 33.8 g/dL (31.8-35.4); Mean Corpuscular Hemoglobin 32.2 pg (27.0-31.2); Mean Corpuscular Volume 95.2 fl (81-99); Mean Platelet Volume 7.8 fl (7.4-10.4); Monocytes # 0.6 K/mm3 (0.1-1.0); Monocytes % 6.6 % (1.7-9.3); Neutrophils # 6.8 K/mm3 (1.8-7.8); Neutrophils % 76.5 % (37.0-80.0); Platelet Count 189 K/mm3 (142-424); Red Blood Count 4.06 M/mm3 (4.20-5.40); Red Cell Distribution Width 13.9 % (11.5-17.5); White Blood Count 8.9 K/mm3 (4.8-10.8)
[2020-05-05 06:15] LABS: Chloride 107 mmol/L (98-107); Potassium 3.9 mmoL/L (3.5-5.1); Sodium 135 mmol/L (136-145)
[2020-05-05 06:17] LABS: Alanine Aminotransferase 224 U/L (12-78); Aspartate Amino Transferase 89 U/L (14-36); Bilirubin,Unconjugated 0.6 mg/dL (0.0-1.1); Blood Urea Nitrogen 14 mg/dl (7-17); Creatinine Clearance Estimated 67 mL/min (50-200); Estimated Glomerular Filt Rate 69 ml/min (>60); GFR (African American) 83 ML/MIN (>60)
[2020-05-05 06:18] LABS: Alkaline Phosphatase 96 U/L (38-126); Anion Gap 6.9 mEq/L (5-15); Bilirubin,Direct 0.7 mg/dl (0.0-0.4); Bilirubin,Indirect 0.6 mg/dL (0.0-0.9); Bilirubin,Total 1.3 mg/dl (0.2-1.3); Calcium 9.8 mg/dl (8.4-10.2); Carbon Dioxide 25 mmol/L (22.0-30.0); Glucose 217 mg/dl (74-100); Total Protein,Serum 5.9 g/dl (6.3-8.2)
--- NOTE | 2020-05-05 07:09 | HMH.ACPN2 ---
Internal Medicine - PN: Subj *Date: 05/05/20 *Time: 07:09 Interval history: Patient has no complaints this morning. She admits she was rather weak with physical therapy yesterday. She has her normal aches and pains which originate in her back. She denies chest pain or shortness of breath. Exam Vital signs and Labs for Last 24 Hours: Temp Pulse Resp BP Pulse Ox 97.9 F 98 H 16 138/67 92 L 05/05/20 04:00 05/05/20 04:00 05/05/20 04:00 05/05/20 04:00 05/05/20 04:00 Laboratory Results - last 24 hr 05/03/20 00:05: Urine Color Yellow, Urine Appearance Clear, Urine pH 5.5, Ur Specific [place] 1.025, Urine Protein Negative, Urine Glucose (UA) 3+, Urine Ketones Negative, Urine Blood Negative, Urine Nitrate Negative, Urine Bilirubin Negative, Urine Urobilinogen 1.0, Ur Leukocyte Esterase Trace, Urine WBC 10-20, Urine Bacteria 4+ 05/04/20 11:26: POC Glucose 183 H 05/04/20 16:33: POC Glucose 216 H 05/04/20 20:47: POC Glucose 235 H 05/05/20 05:35: WBC 8.9, RBC 4.06 L, Hct 38.6, MCV 95.2, MCH 32.2 H, MCHC 33.8, RDW 13.9, Plt Count 189, MPV 7.8, Neut % (Auto) 76.5, Lymph % (Auto) 15.1, [place] % (Auto) 6.6, Eos % (Auto) 1.3, Baso % (Auto) 0.5, Neut # (Auto) 6.8, Lymph # (Auto) 1.4, [place] # (Auto) 0.6, Eos # (Auto) 0.1, Baso # (Auto) 0.0 05/05/20 05:35: Sodium 135 L, Potassium 3.9, Chloride 107, Carbon Dioxide 25, Anion Gap 6.9, BUN 14, Creatinine 0.80, Estimated Creat Clear 67, Estimated GFR 69, Est GFR ( Amer) 83, Glucose 217 H, Calcium 9.8, Total Bilirubin 1.3, Direct Bilirubin 0.7 H, Conjugated Bilirubin 0.0, Indirect Bilirubin 0.6, Unconjugated Bilirubin 0.6, AST 89 H D, ALT 224 H D, Alkaline Phosphatase 96, Total Protein 5.9 L, Albumin 3.0 L D 05/05/20 05:35: POC Glucose 201 H I & O for Last 24 hours: Intake & Output 05/02/20 05/03/20 05/04/20 05/05/20 11:59 11:59 11:59 11:59 Intake Total 1290 / 1290 805 / 805 550 / 550 Output Total 450 / 450 2100 / 2100 1100 / 1100 Balance 840 / 840 -1295 / -1295 -550 / -550 Weight 214 lb 7 oz 213 lb 9 oz 215 lb 3 oz Microbiology Reports for the Last 24 Hours: Microbiology 05/03/20 00:05 Urine,Clean Catch Urine Culture - Final Escherichia coli 05/03/20 00:20 Blood Blood Culture - Preliminary Serratia marcescens 05/03/20 00:20 Blood Blood Culture - Preliminary Staphylococcus hominis Serratia marcescens Narrative: Patient appears comfortable. Lungs are clear. Heart is irregularly irregular. Abdomen is soft. Blood cultures are growing Serratia marcescens. Urine culture has grown E. coli Assessment and Plan (1) Serratia sepsis Current visit: Yes Status: Acute Category: Medical Code(s): A41.53 - Sepsis due to Serratia (2) Severe sepsis with acute organ dysfunction Current visit: Yes Status: Acute Category: Medical Code(s): A41.9 - Sepsis, unspecified organism; R65.20 - Severe sepsis without septic shock (3) UTI (urinary tract infection) Current visit: Yes Status: Acute Qualifiers: Urinary tract infection type: site unspecified Hematuria presence: without hematuria Qualified Code(s): N39.0 - Urinary tract infection, site not specified Category: Medical Code(s): N39.0 - Urinary tract infection, site not specified (4) A-fib Current visit: Yes Status: Chronic Qualifiers: Atrial fibrillation type: unspecified chronic Qualified Code(s): I48.20 - Chronic atrial fibrillation, unspecified Category: Medical Code(s): I48.91 - Unspecified atrial fibrillation (5) Anticoagulated on Coumadin Current visit: Yes Status: Acute Category: Medical Code(s): Z51.81 - Encounter for therapeutic drug level monitoring; Z79.01 - half-way (current) use of anticoagulants (6) Diabetes Current visit: Yes Status: Acute Qualifiers: Diabetes mellitus type: type 2 Diabetes mellitus usp ins
[2020-05-05 07:26] LABS: Hemoglobin 13.2 g/dL (12.2-16.2)
[2020-05-05 08:00] VITALS: BP 124/85; PULSE 94; RESP 18; TEMP 36.7; O2SAT 96
--- NOTE | 2020-05-05 10:54 | SW/DCPLANNER ---
Addendum entered by Laverne Fairchild 05/05/20 13:03: RECEIVED A CALL BACK FROM [facility] AND PATIENT HAS BEEN ACCEPTED. SHE WILL DISCHARGE THERE VIA AMBULANCE... Original Note: SPOKE WITH TODAY AND HE IS IN AGREEMENT FOR ME TO SEND PATIENTS INFORMATION TO [facility] FOR SOME SKILLED REHAB.. HER PLAN IS TO RETURN BACK HOME ONCE HER REHAB IS COMPLETED.. WAITING ON [facility] TO GIVE ME A CALL BACK...
[2020-05-05 11:10] LABS: POC Glucose,Bedside 202 (70-110)
[2020-05-05 11:50] VITALS: BP 132/60; PULSE 89; RESP 18; TEMP 36.7; O2SAT 98
--- NOTE | 2020-05-05 12:01 | HMH.DCSUM ---
General - General Admission date:: 05/03/20 Discharge date: 05/05/20 HPI HPI: 84-year-old female with history of atrial fibrillation and diabetes presented to the emergency department by ambulance after a fall at home. Patient reports malaise for the last 2 days without fevers or chills. She admits she was getting progressively weaker at home and patient's functional status is already impaired. Patient fell although she admits she does not exactly recall the events of the fall. EMS was called. Patient was found down on the floor when they arrived. Patient was brought to the ER. Work-up in the ER has revealed a urinary tract infection and patient met sepsis criteria and was treated as such. Patient has been admitted on Invanz. Patient herself denies any dysuria, urinary frequency or urgency although she admits the Mcneal catheter that is now present gives her the sensation of needing to urinate. She denies cough, shortness of breath, chest pain, abdominal pain, diarrhea. She does report some back pain. Hospital Course Hospital Course: Patient admitted for treatment of sepsis. Started on Invanz. Cultures grew Serratia sensitive to Invanz but patietn will transition to Ceftriaxone 1gm IV daily until 05/10/20. Patient has spinal stenosis which makes ambulating difficult at baseline. Patient was weakened by her illness. PT evaluated patient and recommended SNF for PT to return to prior level of function. Patient had UTI growing e.coli. This is also sensitive to Rocephin. Patient has diabetes that is uncontrolled due to poor diet. glucose while hospitalized were under control. Patient had elevated LFT's on admission. This is believed to be due to sepsis. LFT's normalized. On 05/05/20 patient was accepted at [facility] to continue IV antibiotics and recieve PT. Mental Status: Average Rehab Pot.: Fair Prognosis: Good Objective Vital signs: Temp Pulse Resp BP Pulse Ox 98.1 F 89 18 132/60 98 05/05/20 11:50 05/05/20 11:50 05/05/20 11:50 05/05/20 11:50 05/05/20 11:50 Results Labs on day of discharge: Labs from last 24 hours 05/05/20 05/05/20 05/05/20 10:58 05:35 05:35 WBC RBC Hgb Hct MCV MCH MCHC RDW Plt Count MPV Neut % (Auto) Lymph % (Auto) [place] % (Auto) Eos % (Auto) Baso % (Auto) Neut # (Auto) Lymph # (Auto) [place] # (Auto) Eos # (Auto) Baso # (Auto) Sodium 135 L Potassium 3.9 Chloride 107 Carbon Dioxide 25 Anion Gap 6.9 BUN 14 Creatinine 0.80 Estimated Creat Clear 67 Estimated GFR 69 Est GFR ( Amer) 83 Glucose 217 H POC Glucose 202 H 201 H Calcium 9.8 Total Bilirubin 1.3 Direct Bilirubin 0.7 H Conjugated Bilirubin 0.0 Indirect Bilirubin 0.6 Unconjugated Bilirubin 0.6 AST 89 H D ALT 224 H D Alkaline Phosphatase 96 Total Protein 5.9 L Albumin 3.0 L D 05/05/20 05/04/20 05/04/20 05:35 20:47 16:33 WBC 8.9 RBC 4.06 L Hgb 13.2 D Hct 38.6 MCV 95.2 MCH 32.2 H MCHC 33.8 RDW 13.9 Plt Count 189 MPV 7.8 Neut % (Auto) 76.5 Lymph % (Auto) 15.1 [place] % (Auto) 6.6 Eos % (Auto) 1.3 Baso % (Auto) 0.5 Neut # (Auto) 6.8 Lymph # (Auto) 1.4 [place] # (Auto) 0.6 Eos # (Auto) 0.1 Baso # (Auto) 0.0 Sodium Potassium Chloride Carbon Dioxide Anion Gap BUN Creatinine Estimated Creat Clear Estimated GFR Est GFR ( Amer) Glucose POC Glucose 235 H 216 H Calcium Total Bilirubin Direct Bilirubin Conjugated Bilirubin Indirect Bilirubin Unconjugated Bilirubin AST ALT Alkaline Phosphatase Total Protein Albumin Preliminary micro results at discharge 05/03/20 00:20 Blood Culture - Preliminary Blood Serratia marcescens 05/03/20 00:20 Blood Culture - Preliminary Blood Staphylococcu
--- NOTE | 2020-05-05 14:11 | PC.NURSE ---
PATIENT ASKED ON MULTIPLE OCCASIONS WHERE IT IS SHE IS BEING DISCHARGED TO. PATIENT SOMEWHAT FORGETFUL. AWARE OF PATIENTS DISCHARGE PLAN AND IS CONCERNED SHE WILL NEED LONGER THAN ANTICIPATED TIME TO COMPLETE IV ABX. ALL BELONGINGS WERE SENT WITH PATIENTS . REPORT CALLED TO MAIK GLEZ AT [facility].
== END 2020-05-05 14:09 | DRG 689 ==
LOC: ER 03:56 → 2ND 04:10
PROVIDERS: Admitting Provider Family Medicine; Emergency Provider Emergency Medicine; PCP Family Medicine; Visit Provider Family Medicine
DX: N39.0 Urinary tract infection, site not specified (principal); A41.53 Sepsis due to Serratia; R65.20 Severe sepsis without septic shock; I48.20 Chronic atrial fibrillation, unspecified; I50.9 Heart failure, unspecified; I11.0 Hypertensive heart disease with heart failure; E11.65 Type 2 diabetes mellitus with hyperglycemia; Z79.01 Long term (current) use of anticoagulants; E03.9 Hypothyroidism, unspecified; Z79.4 Long term (current) use of insulin; Z91.81 History of falling; M48.00 Spinal stenosis, site unspecified
CPT/HCPCS: 36415; 70450; 71045; 72125; 72128; 72131; 72170; 74176; 80048; 80053; 80076; 80305; 81001; 82962; 83605; 83735; 84436; 84443; 84484; 85007; 85025; 85610; 87040; 87077; 87086; 87088; 87186; 87581; 87633; 87798; 93005; 96365; 97162; 99285; J1335; J3370

== ENCOUNTER 2021-03-08 20:58 | Inpatient (IN) | payer MEDICARE, MEDICAID, SELFPAY ==
[2021-03-08] VITALS (7 sets, daily range): BP systolic 178–207; BP diastolic 101–120; PULSE 5–132; RESP 15–19; TEMP 36.4; O2SAT 96–99; BMI 26.6
--- NOTE | 2021-03-08 21:06 | ECG_ITS ---
APPROVED REPORT Exam: Resting ECG HR:124 bpm ECG Measurements Heart Rate 124 AXES QRSd 108 QRS 129 QT 336 T -43 QTc 482 Conclusion Atrial fibrillation with rapid ventricular response with premature ventricular or aberrantly conducted complexes Low voltage QRS Right bundle branch block T wave abnormality, consider inferior ischemia or digitalis effect Abnormal ECG Electronically signed by : Yahir Patrick, 03/09/2021 21:17:37
--- NOTE | 2021-03-08 21:22 | HMH.EDFALL ---
ED Disposition Clinical Impression: Essential hypertension, RBBB (right bundle branch block with left anterior fascicular block), Hypercalcemia, SIRS (systemic inflammatory response syndrome) Fall Qualifiers: Encounter type: initial encounter Qualified Code(s): W19.XXXA - Unspecified fall, initial encounter A-fib Qualifiers: Atrial fibrillation type: unspecified chronic Qualified Code(s): I48.20 - Chronic atrial fibrillation, unspecified Diabetes Qualifiers: Diabetes mellitus type: type 2 Diabetes mellitus terminal manager insulin use: unspecified terminal manager insulin use status Diabetes mellitus complication status: with other specified complication Qualified Code(s): E11.69 - Type 2 diabetes mellitus with other specified complication Rhabdomyolysis Qualifiers: Rhabdomyolysis type: non-traumatic Qualified Code(s): M62.82 - Rhabdomyolysis DJD (degenerative joint disease), lumbar Qualifiers: Spinal osteoarthritis complication: with radiculopathy Qualified Code(s): 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 The time I documented below is in addition to time spent performing reported procedures but includes the following listed in this critical care notation. Medical Decision Making - Medical Records Medical records reviewed: Yes: I reviewed the patient's medical records. - Eddie Inquiry Pt receiving controlled substance: No Vital Signs: 03/08/21 20:54 03/08/21 22:13 03/08/21 22:15 Temperature 97.5 F L Temperature Source Rectal Pulse Rate 132 H 118 H Pulse Rate [Right] 5 L Respiratory Rate 16 16 15 Blood Pressure Blood Pressure [Right Arm] 178/101 H Blood Pressure Mean Blood Pressure Mean [Right Arm] 126 02 Sat by Pulse Oximetry 99 99 99 Oxygen Delivery Method Room Air 03/08/21 22:25 03/08/21 22:30 03/08/21 22:31 Temperature Temperature Source Pulse Rate 119 H 114 H 123 H Pulse Rate [Right] Respiratory Rate 19 19 15 Blood Pressure 191/106 H 207/119 H Blood Pressure [Right Arm] Blood Pressure Mean 133 148 Blood Pressure Mean [Right Arm] 02 Sat by Pulse Oximetry 99 99 99 Oxygen Delivery Method 03/08/21 23:13 03/09/21 00:10 Temperature Temperature Source Pulse Rate 109 H 115 H Pulse Rate [Right] Respiratory Rate 16 16 Blood Pressure 192/120 H 160/90 H Blood Pressure [Right Arm] Blood Pressure Mean 138 Blood Pressure Mean [Right Arm] 02 Sat by Pulse Oximetry 96 98 Oxygen Delivery Method Room Air - Lab Data Lab results reviewed: Yes: I reviewed the patient's lab results. Lab Results 03/08/21 21:10: WBC 16.8 H, RBC 4.49, Hgb 14.0, Hct 43.4, MCV 96.7, MCH 31.1, MCHC 32.2, RDW 13.9, Plt Count 298, MPV 8.9, Neut % (Auto) 92.1 H, Lymph % (Auto) 4.3 L, [place] % (Auto) 3.2, Eos % (Auto) 0.2, Baso % (Auto) 0.4, Neut # (Auto) 15.5 H, Lymph # (Auto) 0.7, [place] # (Auto) 0.5, Eos # (Auto) 0.0, Baso # (Auto) 0.1, Total Counted 100, Neutrophils % (Manual) 93 H, Lymphocytes % (Manual) 6 L, Eosinophils % (Manual) 1, Platelet Estimate Normal, Stomatocytes 1+, ESR 41 H 03/08/21 21:10: PT 12.6 H, INR 1.07 03/08/21 21:10: Sodium 135 L, Potassium 3.4 L, Chloride 101, Carbon Dioxide 21 L, Anion Gap 16.4 H, BUN 20 H, Creatinine 0.80, Estimated Creat Clear 49, Estimated GFR 69, Est GFR ( Amer) 83, Glucose 311 H, Calcium 12.3 H*, Total Bilirubin 0.6, AST 33, ALT 20, Alkaline Phosphatase 90, CK-MB (CK-2) 3.8 H, C-Reactive Protein 5.2 H, Total Protein 7.1, Albumin 4.2, Globulin 2.9, Albumin/Globulin Ratio 1.4, Procalcitonin 0.074 03/08/21 21:10: Urine Color Yellow, Urine Appearance Clear, Urine pH 6.0, Ur Specific [place] 1.025, Urine P
--- NOTE | 2021-03-08 21:23 | CT_ITS ---
PROCEDURE INFORMATION: Exam: CT Cervical Spine Without Contrast Exam date and time: 03/08/2021 9:23 PM Age: 85 years old Clinical indication: Injury or trauma; Blunt trauma; Injury date: 03/08/2021; Patient HX: Fall trauma protocol TECHNIQUE: Imaging protocol: Computed tomography images of the cervical spine without contrast. Radiation optimization: All CT scans at this facility use at least one of these dose optimization techniques: automated exposure control; mA and/or kV adjustment per patient size (includes targeted exams where dose is matched to clinical indication); or iterative reconstruction. COMPARISON: CT CERVICAL SPINE WO CON 05/03/2020 12:38 AM FINDINGS: Bones/joints: Vertebral body height and AP alignment is preserved. Moderate degenerative change about the dens. Mild prevertebral osteophytosis. There are bilateral facet joint degenerative changes. No acute cervical spine fracture. Discs/Spinal canal/Neural foramina: No definite significant central canal stenosis within limitations of technique. Thyroid: Heterogeneous thyroid gland. Lungs: There are several nodules at the lung apices measuring up to 5 mm. Pleural spaces: No visible pneumothorax. Vasculature: Vascular calcification. Soft tissues: Unremarkable. IMPRESSION: 1. No acute cervical spine fracture. 2. Several lung nodules at the lung apices measure up to 5 mm. For patients at low risk (minimal or absent history of smoking and of other known risk factors), no routine follow-up is indicated. For patients at high risk (history of smoking or of other known risk factors), consider optional CT Chest at 12 months. (Reference: Brad) REFERENCES: Josephholili Browne, et al. Guidelines for Management of Incidental Pulmonary Nodules Detected on CT Images: From the Fleischner Society 2017. Radiology. 2017;284(1):228-243.
--- NOTE | 2021-03-08 21:23 | CT_ITS ---
PROCEDURE INFORMATION: Exam: CT Head Without Contrast Exam date and time: 03/08/2021 9:23 PM Age: 85 years old Clinical indication: Injury or trauma; Fall; Blunt trauma (contusions or hematomas); Without loss of consciousness; Injury date: 03/08/2021; Injury details: Fell trauma protocol TECHNIQUE: Imaging protocol: Computed tomography of the head without contrast. Radiation optimization: All CT scans at this facility use at least one of these dose optimization techniques: automated exposure control; mA and/or kV adjustment per patient size (includes targeted exams where dose is matched to clinical indication); or iterative reconstruction. COMPARISON: CT HEAD/BRAIN WO CON 05/03/2020 12:35 AM FINDINGS: Brain: Decreased attenuation of the supratentorial white matter is likely secondary to chronic microvascular ischemia. No acute intracranial hemorrhage. Cerebral ventricles: Ventricular and subarachnoid spaces are age appropriate. Bones/joints: Unremarkable. No acute fracture. Paranasal sinuses: Visualized sinuses are unremarkable. No fluid levels. Mastoid air cells: Visualized mastoid air cells are well aerated. Vasculature: Intracranial vascular calcification. Soft tissues: Unremarkable. IMPRESSION: No acute intracranial abnormality.
--- NOTE | 2021-03-08 21:23 | XR_ITS ---
PROCEDURE INFORMATION: Exam: XR Chest Exam date and time: 03/08/21 09:23 PM Age: 85 years old Clinical indication: Injury or trauma; Fall; Blunt trauma (contusions or hematomas); Injury date: 03/08/2021; Injury details: Fell trauma protocol TECHNIQUE: Imaging protocol: XR of the chest. Views: 1 view. COMPARISON: CR XR CHEST PORTABLE 05/03/20 12:51 AM FINDINGS: Lungs: Unremarkable. No consolidation. Pleural spaces: Unremarkable. No pleural effusion. No pneumothorax. Heart/Mediastinum: Cardiomegaly. Bones/joints: Unremarkable. IMPRESSION: No significant interval change since 05/03/2020.
--- NOTE | 2021-03-08 21:24 | XR_ITS ---
PROCEDURE INFORMATION: Exam: XR Pelvis Exam date and time: 03/08/21 09:24 PM Age: 85 years old Clinical indication: Injury or trauma; Fall; Blunt trauma (contusions or hematomas); Right; Injury date: 03/08/2021; Injury details: Fell complaining of RT leg and hip pain TECHNIQUE: Imaging protocol: XR pelvis. Views: 1 or 2 view. COMPARISON: CT ABDOMEN PELVIS WO CON 05/03/20 01:28 AM FINDINGS: Bones/joints: Bone island right femoral neck. No acute fracture. Soft tissues: Unremarkable. IMPRESSION: No acute findings. Osseous demineralization limits evaluation only slightly.
[2021-03-08 21:36] LABS: Basophils # 0.1 K/mm3 (0-0.2); Basophils % 0.4 % (0.1-2.0); Eosinophils % 0.2 % (0.1-12.0); Hematocrit 43.4 % (37.0-47.0); Lymphocytes # 0.7 K/mm3 (0.7-4.5); Lymphocytes % 4.3 % (10-50); Mean Corpuscular HGB Conc 32.2 g/dL (31.8-35.4); Mean Corpuscular Hemoglobin 31.1 pg (27.0-31.2); Mean Corpuscular Volume 96.7 fl (81-99); Mean Platelet Volume 8.9 fl (7.4-10.4); Monocytes # 0.5 K/mm3 (0.1-1.0); Monocytes % 3.2 % (1.7-9.3); Neutrophils # 15.5 K/mm3 (1.8-7.8); Neutrophils % 92.1 % (37.0-80.0); Platelet Count 298 K/mm3 (142-424); Red Blood Count 4.49 M/mm3 (4.20-5.40); Red Cell Distribution Width 13.9 % (11.5-17.5); White Blood Count 16.8 K/mm3 (4.8-10.8)
[2021-03-08 21:42] LABS: Alanine Aminotransferase 20 U/L (12-78); Albumin Level 4.2 g/dl (3.5-5.0); Albumin/Globulin Ratio 1.4 (1.1-1.8); Alkaline Phosphatase 90 U/L (38-126); Anion Gap 16.4 mEq/L (5-15); Aspartate Amino Transferase 33 U/L (14-36); Bilirubin,Total 0.6 mg/dl (0.2-1.3); Blood Urea Nitrogen 20 mg/dl (7-17); Carbon Dioxide 21 mmol/L (22.0-30.0); Chloride 101 mmol/L (98-107); Creatinine Clearance Estimated 49 mL/min (50-200); Estimated Glomerular Filt Rate 69 ml/min (>60); GFR (African American) 83 ML/MIN (>60); Globulin 2.9 g/dL (1.3-3.2); Glucose 311 mg/dl (74-100); Potassium 3.4 mmoL/L (3.5-5.1); Sodium 135 mmol/L (136-145); Total Protein,Serum 7.1 g/dl (6.3-8.2)
[2021-03-08 21:45] LABS: MANUAL DIFFERENTIAL MANUAL DIFFERENTIAL (MANUAL DIFF)
[2021-03-08 21:47] LABS: C-Reactive Protein 5.2 mg/L (0-4); Calcium 12.3 mg/dl (8.4-10.2)
[2021-03-08 21:49] LABS: INR 1.07 (0.9-1.1); Prothrombin Time 12.6 seconds (10.1-12.5)
[2021-03-08 21:53] LABS: Creatine Kinase MB 3.8 ng/ml (0.0-2.03)
[2021-03-08 22:01] LABS: Procalcitonin 0.074 ng/mL (0.0-2.0)
[2021-03-08 22:06] LABS: Eosinophils % 1 % (0-3); Lymphocytes % 6 % (10-50); Neutrophils % 93 % (42-76); Platelet Estimate Normal; Stomatocytes 1+; Total Cells Counted 100
[2021-03-08 22:11] LABS: Microscopic, Urine URINE MICROSCOPIC (MICROSCOPIC)
[2021-03-08 22:13] LABS: Erythrocyte Sedimentation Rate 41 mm/hr (0-30)
[2021-03-08 22:15] LABS: Appearance,Urine CLEAR (Clear); Bilirubin,Urine Negative (Negative); Blood, Urine 2+ (Negative); Color,Urine YELLOW (Yellow); Glucose,Urine (UA) 3+ (Negative); Ketones,Urine 1+ (Negative); Leukocyte Esterase,Urine Negative (Negative); Nitrate,Urine Negative (Negative); Protein,Urine Negative (Negative); Specific Gravity, Urine 1.025 (1.005-1.030); Urobilinogen,Urine 0.2 EU/dl (0.2)
[2021-03-08 22:23] LABS: Bacteria,Urine Trace /lpf; Squamous Epithelial Cell,Urine Occasional #/hpf (0-5); WBC,Urine Occasional #/hpf (0-3)
--- NOTE | 2021-03-08 22:29 | CT_ITS ---
PROCEDURE INFORMATION: Exam: CT Right Lower Extremity Without Contrast, Hip Exam date and time: 03/08/2021 10:29 PM Age: 85 years old Clinical indication: Injury or trauma; Fall; Blunt trauma; Right; Injury date: 03/08/2021; Injury details: Fell pain RT hip TECHNIQUE: Imaging protocol: CT of the Right lower extremity without contrast was performed. Exam focused on the hip. 3D rendering (Not supervised by radiologist): MIP and/or 3D reconstructed images were created by the technologist. Radiation optimization: All CT scans at this facility use at least one of these dose optimization techniques: automated exposure control; mA and/or kV adjustment per patient size (includes targeted exams where dose is matched to clinical indication); or iterative reconstruction. COMPARISON: CT ABDOMEN PELVIS WO CON 05/03/2020 1:28 AM FINDINGS: Tubes, catheters and devices: Urinary bladder is decompressed by a Mcneal catheter. Bones/joints: Osteopenia. Small sclerotic focus at the proximal right femur, probably enostosis. Mild degenerative change. No acute fracture. No dislocation. No osseous destruction. Soft tissues: Normal. Vasculature: Vascular calcification. Bowel: Diverticulosis. Reproductive: Previous hysterectomy. IMPRESSION: No acute osseous abnormality.
[2021-03-08 23:42] LABS: Hemoglobin A1C 7.8 % (4.0-6.0)
[2021-03-08 23:43] LABS: Creatine Kinase 667 U/L (30-135)
[2021-03-08 23:58] LABS: Troponin I 0.01 ng/ml (0.00-0.034)
[2021-03-08 23:58] LABS: Lactic Acid 1.4 mmol/L (0.7-2.1)
[2021-03-09] VITALS (21 sets, daily range): BP systolic 96–184; BP diastolic 42–90; PULSE 50–130; RESP 14–18; TEMP 36.4–37.1; O2SAT 94–100
--- NOTE | 2021-03-09 | IR_ITS ---
APPROVED REPORT Patient Location: Inpatient Manager Enterprise Content Management: MARYANA Pandya RT (R) PROCEDURES Left femoral arterial access Catheter placement to the right common femoral artery Right common femoral artery angiogram Unilateral runoff to the right foot Placement of aspiration catheter in the right popliteal artery right superficial femoral artery right common femoral artery and right profunda femoris artery Thrombus aspiration/thrombectomy of the right popliteal artery right superficial femoral artery right common femoral artery and right profunda femoris Stent deployment to the right popliteal tibial arterial trunk Stent deployment to the right popliteal artery Stent deployment to the right superficial femoral artery Angioplasty to the right profunda femoris artery INDICATION 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 COMPLICATIONS NONE Estimated Blood Loss: LESS THAN 10 ML TECHNIQUE 1% lidocaine used to anesthetize the left femoral groin. The left femoral artery was accessed via the Seldinger technique. A 6 [place]er sheath was placed in the left femoral artery. A rim catheter was advanced to the distal abdominal aorta and an advantage wire was advanced into the right femoral artery. The sheath and catheter were advanced and angiography was performed which demonstrated thrombosis at the level of the right femoral artery. Therapeutic heparin was administered giving a therapeutic ACT and an advantage wire was placed into the right superficial femoral artery. A penumbra catheter was advanced and passed up and down the femoral artery and superficial femoral artery to remove a large amount of thrombus. This did restore flow into the proximal SFA however the entire leg was thrombosed therefore the catheter was advanced down into the popliteal artery where thrombus continue to be aspirated. This was also advanced into the popliteal artery and PT trunk. A 6 mm x 100 mm self-expanding EV 3 stent was placed in the right superficial femoral artery followed by an additional 6 mm x 100 mm stent placed distal to this. Unfortunately this did not overlap therefore a 6 mm x 20 mm self-expanding stent was used to connect the 2 stents. An additional 5 mm x 80 mm self-expanding stent was then placed into the distal popliteal artery into the PT trunk and deployed. 5 mm balloons were used to post dilate. After SFA flow and lower extremity flow was restored the profunda femoris artery was then worked on. A wire was placed into the profunda femoris artery and a 4 mm balloon was inflated up and down the profunda femoris artery. The same penumbra aspiration catheter was advanced and thrombus was aspirated throughout the profunda femoris restoring flow. After achieving excellent angiographic results the apparatus was removed the sheath was pulled back the groin was reprepped gloves were changed sheath was removed good hemostasis was achieved using Perclose device patient was transferred to the postop holding in stable addition ANGIOGRAPHIC RESULTS The right common femoral artery is occluded at mid vessel The right superficial femoral artery is thrombosed The right popliteal artery is completely thrombosed The right profunda femoris artery is thrombosed The right PT trunk is thrombosed with no distal flow At the end of the procedure the right common femoral artery is widely patent with wide and inline flow into the superficial femoral artery which was widely patent. The mid SFA then had a stent which extended in a contig
--- NOTE | 2021-03-09 00:16 | CT_ITS ---
PROCEDURE INFORMATION: Exam: CT Lumbar Spine Without Contrast Exam date and time: 03/09/2021 12:16 AM Age: 85 years old Clinical indication: Low back pain and other: RT hip and leg; Patient HX: PT fell pain low back and RT hip and leg; Additional info: Fall TECHNIQUE: Imaging protocol: Computed tomography images of the lumbar spine without contrast. Radiation optimization: All CT scans at this facility use at least one of these dose optimization techniques: automated exposure control; mA and/or kV adjustment per patient size (includes targeted exams where dose is matched to clinical indication); or iterative reconstruction. COMPARISON: CT LUMBAR SPINE WO CON 05/03/2020 12:44 AM FINDINGS: Vertebrae: Mild levoconvex curvature. Grade 1 anterolisthesis of L4 on L5. Remainder demonstrates preserved height and AP alignment. There is degenerative endplate irregularity, similar from prior examination. No acute fracture. Mild prevertebral osteophytosis. There are bilateral facet joint degenerative changes. Discs/Spinal canal/Neural foramina: Central canal stenosis greatest at L2-L3, likely moderate. Kidneys and ureters: Previous left-sided nephrectomy. Right-sided hydroureteronephrosis, no discrete obstructing calculus is visualized. Stomach and bowel: Diverticulosis without visible diverticulitis. Reproductive: Probable hysterectomy. Vasculature: Vascular calcification. Soft tissues: See Vertebrae finding. Other findings: There is nonspecific thickening involving the bilateral adrenal glands. IMPRESSION: No acute osseous abnormality.
[2021-03-09 00:36] LABS: T4 (Thyroxine) 11.9 ug/dl (5.53-11.0)
[2021-03-09 00:50] LABS: Thyroid Stimulating Hormone 1.55 uIU/mL (0.465-4.68)
--- NOTE | 2021-03-09 02:10 | PC.NURSE ---
spoke with laura from pharmacy about lovenox dosage
--- NOTE | 2021-03-09 02:30 | PC.NURSE ---
PT ARRIVED TO FLOOR VIA STRETCHER FROM ED W/STAFF AT 0230
[2021-03-09 02:51] LABS: Troponin I 0.05 ng/ml (0.00-0.034)
[2021-03-09 05:22] LABS: POC Glucose,Bedside 184 (70-110)
[2021-03-09 05:44] LABS: Basophils # 0.1 K/mm3 (0-0.2); Basophils % 0.3 % (0.1-2.0); Eosinophils # 0.1 K/mm3 (0.0-0.4); Eosinophils % 0.4 % (0.1-12.0); Hematocrit 42.3 % (37.0-47.0); Hemoglobin 14.1 g/dL (12.2-16.2); Lymphocytes # 1.3 K/mm3 (0.7-4.5); Lymphocytes % 8.1 % (10-50); Mean Corpuscular HGB Conc 33.2 g/dL (31.8-35.4); Mean Corpuscular Hemoglobin 31.4 pg (27.0-31.2); Mean Corpuscular Volume 94.4 fl (81-99); Mean Platelet Volume 8.1 fl (7.4-10.4); Monocytes # 0.9 K/mm3 (0.1-1.0); Monocytes % 5.5 % (1.7-9.3); Neutrophils # 14.3 K/mm3 (1.8-7.8); Neutrophils % 85.7 % (37.0-80.0); Platelet Count 267 K/mm3 (142-424); Red Blood Count 4.48 M/mm3 (4.20-5.40); Red Cell Distribution Width 13.9 % (11.5-17.5); White Blood Count 16.7 K/mm3 (4.8-10.8)
[2021-03-09 05:45] LABS: Chloride 102 mmol/L (98-107); Potassium 3.5 mmoL/L (3.5-5.1); Sodium 135 mmol/L (136-145)
--- NOTE | 2021-03-09 05:47 | PC.NURSE ---
arrived on floor via stretcher, c/o pain in right hip/groin area pain scale 10/10; pain medications administered per MAR; patient resting with eyes closed showing no s/s of acute distress at this time. Will continue to monitor.
[2021-03-09 05:48] LABS: Anion Gap 12.5 mEq/L (5-15); Blood Urea Nitrogen 16 mg/dl (7-17); Carbon Dioxide 24 mmol/L (22.0-30.0); Creatinine Clearance Estimated 55 mL/min (50-200); Estimated Glomerular Filt Rate 95 ml/min (>60); GFR (African American) 116 ML/MIN (>60); Glucose 219 mg/dl (74-100)
[2021-03-09 05:49] LABS: Magnesium 1.7 mg/dl (1.6-2.3)
[2021-03-09 05:51] LABS: MANUAL DIFFERENTIAL MANUAL DIFFERENTIAL (MANUAL DIFF)
[2021-03-09 06:01] LABS: Troponin I 0.05 ng/ml (0.00-0.034)
[2021-03-09 06:13] LABS: Lymphocytes % 8 % (10-50); Monocytes % 4 % (2-9); Neutrophils % 88 % (42-76); Platelet Estimate Normal; Total Cells Counted 100
[2021-03-09 06:14] LABS: Stomatocytes 1+
[2021-03-09 06:15] LABS: Calcium 10.8 mg/dl (8.4-10.2)
--- NOTE | 2021-03-09 07:11 | HMH.PHAVTE ---
[facility] Pharmacy VTE Monitoring - Patient Demographics Admission date: 03/09/21 Report Date: 03/09/21 Time: 07:11 Allergies/Adverse Reactions: Patient Allergies No Known Allergies Allergy (Verified 05/03/20 00:44) Height: 1.65 m Weight: 81.788 kg Patient Problems: Current Active Problems Fall (Acute) DJD (degenerative joint disease), lumbar (Acute) A-fib (Chronic) Diabetes (Acute) Essential hypertension (Chronic) RBBB (right bundle branch block with left anterior fascicular block) (Acute) Rhabdomyolysis (Acute) Hypercalcemia (Acute) SIRS (systemic inflammatory response syndrome) (Acute) - VTE Risk Labs: VTE Related Lab Results Hgb 14.1 g/dL (12.2-16.2) 03/09/21 05:29 Hct 42.3 % (37.0-47.0) 03/09/21 05:29 Plt Count 267 K/mm3 (142-424) 03/09/21 05:29 PT 12.6 seconds (10.1-12.5) H 03/08/21 21:10 INR 1.07 (0.9-1.1) 03/08/21 21:10 BUN 16 mg/dl (7-17) 03/09/21 05:29 Creatinine 0.60 mg/dl (0.52-1.04) D 03/09/21 05:29 Estimated Creat Clear 55 mL/min (50-200) 03/09/21 05:29 - Prophylaxis VTE Prophylaxis Ordered?: Yes Types of VTE Prophylaxis: TEDS Knee High Location of Applied Device: Bilateral Lower Extremeties
--- NOTE | 2021-03-09 08:00 | CA_ITS ---
APPROVED REPORT EXAM: Comprehensive 2D, Doppler, and color-flow Echocardiogram Mail Room Clerk: Ana Brown CRT Ht: 5 ft 5 in Wt: 160lbs BSA: 1.80 BP: 160/90 mmHg Indications: Congestive Heart Failure, Diabetes, Atrial Fibrillation (chronic), Hyperlipidemia, Hypertension/HDD, murmur, RBBB, fall 2D Dimensions LVOT 1.91 cm (M/F) 1.5-2.5 LA Volume 138.80 mL LA Volume Index 77.10 mL/m2 (M/F) 16-34 M-Mode Dimensions RVDd 1.90 cm (0.9-2.6) LA Diam 5.60 cm (1.9-4.0) LVDd 3.97 cm (3.5-5.7) Ao Diam 2.78 cm (2.0-3.7) LVDs 2.54 cm (3.5-5.7) IVSd 1.58 cm (0.6-1.1) PWd 1.18 cm (0.6-1.1) EF (Teich) 66.30% FS 36.00% EDV (Teich) 68.80 mL ESV (Teich) 23.20 mL LV Diastology MED E' 5.60 (< 7 cm/sec) MED A' 2.30 cm/s LAT E' 9.00 (<10 cm/sec) LAT A' 5.20 cm/s Aortic Valve AI PHT 257.00 ms AO Peak GR. 9.40 mmHg Pulmonary Valve PV Peak Velocity 100.00 (50-150 cm/s) Tricuspid Valve TR P. Velocity 289.00 cm/s RAP Estimate 10.00 mmHg RVSP 43.40 mmHg Left Ventricle Left atrium is markedly enlarged, left ventricle is normal size, mild concentric left ventricular hypertrophy, visually estimated ejection fraction 55% with no regional wall motion abnormality, Doppler evidence of raise left ventricular end-diastolic pressure. Diastolic parameters are inconclusive. Right Ventricle Right atrium and right ventricle are mildly enlarged with normal contractility. Aortic Valve Aortic valve is thickened and calcified without aortic stenosis, there is mild aortic insufficiency. Mitral Valve Mitral valve leaflets are minimally thickened, there is no mitral stenosis, there is mild mitral regurgitation. Tricuspid Valve Tricuspid grossly normal, there is mild tricuspid regurgitation. Calculated right ventricular systolic pressure is 43 mmHg. Pulmonic Valve Pulmonic valve is poorly visualized. Great Vessels Aortic root is normal size. Pericardium No significant pericardial effusion noted. Conclusion 1. Biatrial enlargement, normal left ventricular size, mild concentric left ventricular hypertrophy, visually estimated ejection fraction 55% with no regional wall motion abnormality, Doppler evidence of raise left ventricular end-diastolic pressure. 2. Mildly enlarged right ventricle with normal contractility. 3. Mild aortic, mitral and tricuspid regurgitation, calculated right ventricular systolic pressure is 43 mmHg. 4. No significant pericardial effusion noted. Electronically signed by : Lexx Nagy, 03/09/2021 15:26:46
--- NOTE | 2021-03-09 08:10 | HMH.HP ---
*Admission Date: 03/09/21 *Chief complaint: Fall at home *History of present illness: 85-year-old female was brought to the emergency department via EMS after paramedics were called to the patient's home and both she and her were found in the floor. Patient herself cannot give any details about the events of yesterday that led to her arrival at the emergency department other than when she was trying to get out of bed she slid down the bed. She denies significant injury but once again her memory is questionable. Patient came to the ER and underwent evaluation. In the ER she complained of back and right leg pain which she confirms this morning. Patient was admitted for mild rhabdomyolysis and hypercalcemia. Patient had no acute kidney injury. Urinalysis was markedly abnormal with blood and ketones. Significant review of systems: Chronic joint pains leading to minimal ambulation with primary mode of transportation being wheelchair. Chronic anxiety. [facility] History I have reviewed the patient's past medical history: Yes Medical History: Reports:: Atrial Fibrillation, Congestive Heart Failure, Diabetes Mellitus Type 2, Hyperlipidemia, Hypertension Denies:: Cancer, Diabetes Mellitus Type 1, MRSA *Have you ever received a pneumonia vaccine?: Yes *Have you received a flu vaccine this season?: Yes Other Medical History: Reports: Arthritis Other Surgeries: Yes: No Previous Surgery Amputation: No Fractures: No - *Social History Last grade of school completed: 9th or 10th Smoking Status: Former smoker Alcohol Intake: never *Occupational Status:: retired Housing: house Household Members: spouse *Travel in the last 8 weeks: Inside the [facility] Family Hx:: No significant family history Review of Systems - Constitutional Reports lack of energy, Denies anorexia, Denies body ache(s) - Eyes Denies blurry vision - ENT Reports abnormal hearing - *Cardiovascular Reports chest pain - *Respiratory Denies change in phlegm color, Denies chest congestion, Denies cough - *Gastrointestinal Denies abdominal pain, Denies belching, Denies bloating - *Genitourinary Denies abnormal vaginal bleeding, Denies painful urination - *Musculoskeletal Reports abnormal walking, Reports joint pain (Right hip), Reports decreased muscle mass (Right thigh), Reports back pain (Chronic), Reports limited joint movement (Right hip and knee), Reports muscle weakness, Denies joint swelling - *Neurologic Reports abnormal walking, Reports confusion, Reports localized weakness, Reports memory loss, Reports weakness, Denies abnormal movements, Denies abnormal speech, Denies seizure-like activity, Denies headache(s), Denies seizure-like activity - Psychiatric Reports anxiety, Denies abnormal sleep pattern, Denies lack of enjoyment Meds Home Medications Medication Instructions Recorded Confirmed Type Labetalol HCl 200 mg PO BID 05/03/20 03/08/21 History Levothyroxine Sodium 100 mcg PO DAILY 05/03/20 03/08/21 History [Levothyroxine 100mcg (0.1MG) Tab] Dapagliflozin Propanediol [Farxiga] 5 mg PO DAILY 03/08/21 03/08/21 History glipiZIDE [Glipizide] 10 mg PO BID 03/08/21 03/09/21 History Amlodipine Besylate 10 mg PO DAILY 03/09/21 03/09/21 History Warfarin Sodium 2 mg PO DAILY 03/09/21 03/09/21 History diazePAM [diazePAM 5mg Tablet] 5 mg PO Q6H 03/09/21 03/09/21 History lisinopriL [Lisinopril] 20 mg PO DAILY 03/09/21 03/09/21 History Allergies Allergy/AdvReac Type Severity Reaction Status Date / Time No Known Allergies Allergy Verified 05/03/20 00:44 Exam Vital signs and Labs for Last 24 Hours: Temp Pulse Resp BP Pulse Ox 97.9 F 108 H 17 152/72 H 94 L 03/09/21 07:49 03/09/21 07:49 03/09/21 07:49 03/09/21 07:49 03/09/21 07:49 Laboratory Results - last 24 hr 03/08/21 21:10: WBC 16.8 H, RBC 4.49, Hgb 14.0, Hct 43.4, MCV 96.7, MCH 31.1, MCHC 32.2, RDW 13.9, Plt Count 298, MPV 8.9, Neut % (Auto) 92.1 H, Lymph % (Auto) 4.3 L, M
--- NOTE | 2021-03-09 08:34 | SW/DCPLANNER ---
Addendum entered by Laverne Fairchild 03/15/21 06:47: SPOKE WITH [facility] VIA PHONE AND THEY STILL HAVE A BED FOR THIS PATIENT HOWEVER THINKS SHE CAN RETURN HOME AND NEITHER OF THEM ARE ABLE TO CARE FOR THEMSELVES... PATIENT CONTINUES TO BE IN THE ACUTE HOSPITAL AND PATIENT WISHES TO HAVE EVERYTHING DONE FOR HER... SON DID ATTEMPT TO MAKE DECISIONS AND WAS GOING TO MAKE PATIENT A DNR BUT WANTS HER A FULL CODE...AT THIS TIME I AM NOT SURE WHAT IS GOING TO HAPPEN, SHE IS NPO AT THIS TIME... Original Note: MADE ROUNDS WITH DR GILBERT THIS MORNING, PATIENT PRESENTED INTO THE HOSPITAL AFTER FALLING ON THE FLOOR... PATIENT AND SPOUSE HAVE BEEN LIVING ALONE BUT NEITHER OF THEM ARE ABLE TO CARE FOR THEMSELVES VERY WELL... 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 SHE IS GOING TO HAVE A PT CONSULT TODAY AND I WILL SEND A PACKET FOR THEM TO REVIEW TO SEE IF THEY HAVE BED AVAILABILITY... PATIENT IS NOT READY TODAY BUT COULD BE SOON THE NEXT DAY OR SO... WILL FOLLOW UP WITH [facility] LATER IN THE MORNING...
[2021-03-09 08:52] LABS: Intact Parathyroid Hormone 234.3 pg/mL (7.5-53.5)
[2021-03-09 08:57] LABS: 25-OH Vitamin D, Total 14.3 ng/mL (30-100)
--- NOTE | 2021-03-09 10:13 | HMH.PHAINT ---
MEDICATION RECONCILIATION COMPLETED USING EXTERNAL FILL HISTORY AND PHYSICIAN OFFICE NOTE
--- NOTE | 2021-03-09 11:48 | CA_ITS ---
APPROVED REPORT Analysis Intern: Indira Zacarias RVT Laterality: Right Study Quality: Good Indications: no pedal pulse,COLD EXTREMITY Risk Factors Hypertension Hyperlipidemia Diabetes Smoking Findings Study suggests probable thrombus seen in the right common femoral artery. No color flow or doppler seen in the distal PLASTIC FABRICATOR,DFA,FA,poplitaeal,peroneal, posterior tibial and anterior tibial arteries. Low arterial flow seen in the proximal common femoral artery. Conclusion Study suggests probable thrombus seen in the right common femoral artery. No color flow or doppler seen in the distal PLASTIC FABRICATOR,DFA,FA,poplitaeal,peroneal, posterior tibial and anterior tibial arteries. Low arterial flow seen in the proximal common femoral artery. Critical Notification Critical Value: Yes Physician Notified Date: 03/09/2021 Time: 14:08 Physician Name: Dr Pittman Electronically signed by : Keith Hernandez MD 03/09/2021 18:26:11
[2021-03-09 12:28] LABS: POC Glucose,Bedside 178 (70-110)
--- NOTE | 2021-03-09 12:39 | HMH.PTEV ---
Physical Therapy Evaluation Rehab PT IP Evaluation Start: 03/09/21 08:07 Freq: ONCE Status: Active Protocol: Document 03/09/21 11:30 PHORNE (Rec: 03/09/21 12:39 PHORNE [id number]) Subjective/History History History 85 yowf adm to [facility] S/P found down at home after, I slipped out of the bed. She was diagnosed with mild rhabdo upon adm. She reports she lives with her , no steps to enter the home, and she uses a manual wheelchair for primary mobility. Subjective Subjective She reports, My leg (right) is numb and it hurts up here really bad (thigh/groin). R LE is cold to the touch compared to L LE, severe tenderness to palpation around the R groin and hip area, unable to palpate pedal pulses , RN and case management notified. Rehab PT IP Eval Objective Appearance Patient Behavior Appropriate Patient Orientation Person,Place Difficulty following instructions none Speech Pattern Clear Ambulation Patient Able to Ambulate No Balance Ability to Arise Unable Sitting Balance Steady, safe Dynamic Sitting Balance Ability Good Transfers Bed Transfer Ability Moderate x 1 (50% assist) ROM RLE PT ROM Status ABN Abnormal ROM Comment pain with all movement MMT RLE PT MMT ABN Abnormal MMT Grade grossly 2/5 throughout Rehab PT IP prob,goals,plan Problems Date of Evaluation: 03/09/21 PT IP Problems Bed Mobility,Transfers Rehab Potential Rehab Potential Fair Plan PT Intervention Plan Bed Mobility,Transfers,Self care,Therapeutic Exercise PT Plan Frequency BID Duration LOS Discharge Goals Bed Transfer Ability Minimal x 2 (25% assist) Sit to Stand Chair Transfer Ability Maximum x 1 (75% assist) Discharge Plan PT Discharge Plan Pt is most appropriate for rehab placement at this time as she is unable to safely transfer from bed to chair as would be required for her to return home in previous living
--- NOTE | 2021-03-09 14:26 | HMH.CNCARD ---
History of Present Illness Consult date: 03/09/21 Requesting physician: Yahir Pittman Chief complaint: fall History of present illness: This is an 85-year-old white female who was brought to the emergency department via EMS after she was found on the floor at home. The patient states that she fell at some point trying to get out of the bed but she really cannot give me any details about the event. She does have some underlying confusion. She does not complain of any pain in her lower extremity when I am speaking to her but when I touch her leg she does grimace and when she moves the right lower extremity she grimaces as well. She denies any chest pain or pressure. She denies any shortness of breath or edema. She denies any fever, chills, nausea, vomiting, diarrhea, PND or orthopnea. The patient was admitted for mild rhabdomyolysis and hypercalcemia The patient had a right lower extremity arterial duplex which showed a thrombus to the right lower extremity and cardiology was consulted. [facility] History I have reviewed the patient's past medical history: Yes Medical History: Reports:: Atrial Fibrillation, Congestive Heart Failure, Diabetes Mellitus Type 2, Hyperlipidemia, Hypertension Denies:: Cancer, Diabetes Mellitus Type 1, MRSA *Have you ever received a pneumonia vaccine?: Yes *Have you received a flu vaccine this season?: Yes Other Medical History: Reports: Arthritis Other Surgeries: Yes: No Previous Surgery Amputation: No Fractures: No - *Social History Last grade of school completed: 9th or 10th Smoking Status: Former smoker Alcohol Intake: never *Occupational Status:: retired Housing: house Household Members: spouse *Travel in the last 8 weeks: [facility] Family Hx:: No significant family history Meds Home Medications Medication Instructions Recorded Confirmed Type Labetalol HCl 200 mg PO BID 05/03/20 03/08/21 History Levothyroxine Sodium 100 mcg PO DAILY 05/03/20 03/08/21 History [Levothyroxine 100mcg (0.1MG) Tab] Dapagliflozin Propanediol [Farxiga] 5 mg PO DAILY 03/08/21 03/08/21 History glipiZIDE [Glipizide] 10 mg PO BID 03/08/21 03/09/21 History Amlodipine Besylate 10 mg PO DAILY 03/09/21 03/09/21 History Furosemide [Furosemide 20mg Tab*] 20 mg PO DAILY 03/09/21 03/09/21 History Warfarin Sodium 2 mg PO DAILY 03/09/21 03/09/21 History diazePAM [diazePAM 5mg Tablet] 5 mg PO Q6H 03/09/21 03/09/21 History lisinopriL [Lisinopril] 20 mg PO DAILY 03/09/21 03/09/21 History Allergies Allergy/AdvReac Type Severity Reaction Status Date / Time No Known Allergies Allergy Verified 05/03/20 00:44 Exam Vital signs and Labs for Last 24 Hours: Temp Pulse Resp BP Pulse Ox 98.1 F 112 H 17 156/77 H 94 L 03/09/21 10:44 03/09/21 10:44 03/09/21 10:44 03/09/21 10:44 03/09/21 10:44 Laboratory Results - last 24 hr 03/08/21 21:10: WBC 16.8 H, RBC 4.49, Hgb 14.0, Hct 43.4, MCV 96.7, MCH 31.1, MCHC 32.2, RDW 13.9, Plt Count 298, MPV 8.9, Neut % (Auto) 92.1 H, Lymph % (Auto) 4.3 L, [place] % (Auto) 3.2, Eos % (Auto) 0.2, Baso % (Auto) 0.4, Neut # (Auto) 15.5 H, Lymph # (Auto) 0.7, [place] # (Auto) 0.5, Eos # (Auto) 0.0, Baso # (Auto) 0.1, Total Counted 100, Neutrophils % (Manual) 93 H, Lymphocytes % (Manual) 6 L, Eosinophils % (Manual) 1, Platelet Estimate Normal, Stomatocytes 1+, ESR 41 H 03/08/21 21:10: PT 12.6 H, INR 1.07 03/08/21 21:10: Sodium 135 L, Potassium 3.4 L, Chloride 101, Carbon Dioxide 21 L, Anion Gap 16.4 H, BUN 20 H, Creatinine 0.80, Estimated Creat Clear 49, Estimated GFR 69, Est GFR ( Amer) 83, Glucose 311 H, Calcium 12.3 H*, Total Bilirubin 0.6, AST 33, ALT 20, Alkaline Phosphatase 90, CK-MB (CK-2) 3.8 H, C-Reactive Protein 5.2 H, Total Protein 7.1, Albumin 4.2, Globulin 2.9, Albumin/Globulin Ratio 1.4, Procalcitonin 0.074 03/08/21 21:10: Urine Color Yellow, Urine Appearance Clear, Urine pH 6.0, Ur Specific [place] 1.025, Urine Protein Negative, Urine Glucose (UA) 3+, Urine Ketones 1+, Urine Bl
[2021-03-09 15:00] LABS: Activated Partial Thrombo Time 28.8 seconds (22.8-30.6)
[2021-03-09 17:42] LABS: POC Glucose,Bedside 207 (70-110)
--- NOTE | 2021-03-09 18:34 | PC.NURSE ---
Pt is alert to self. Frequent reinforcement need for teaching as pt forgets quickly. She is s/p angiogram with 4 stents to rle per Lauren Gandara RN. Upon return from cytology laboratory manager patient has been drowsy. She will arouse to the name but falls back to sleep quickly. Unable to get her to take po meds as she won't stay awake long enough to swallow. RLE is warm to touch, faint pedal pulse noted. Dressing to left groin site is clean, dry, and intact. Heparin infusing at 1400 units/hour per Dr Rosa order. Family updated on poc. Will conitnue to monitor.
--- NOTE | 2021-03-09 20:21 | PC.NURSE ---
[address]aged director semiconductor [address] Cardenas, no new orders at this time.
[2021-03-09 21:14] LABS: POC Glucose,Bedside 202 (70-110)
--- NOTE | 2021-03-09 21:31 | PC.NURSE ---
212 paged digital production artist [phone] Cardenas new orders received
--- NOTE | 2021-03-09 21:54 | PC.NURSE ---
2115 spoke with Idalia Bedoya who stated to change dosage of diltiazem from 240mg to 360mg, and to discontinue amlodipine besylate
--- NOTE | 2021-03-09 22:59 | PC.NURSE ---
2390 spok with air traffic control specialist center pharmacist Sage who changed pt s heparin dose to 1200 units/hr
--- NOTE | 2021-03-09 23:31 | PC.NURSE ---
pt was unable o take her xarelto at administration time due to being to lethargic and unable to wake up enough to safely take medication. spoke with Dr. Melendez who stated if pt wakes up enough tonight to try and administer medication again.
[2021-03-10] VITALS (49 sets, daily range): BP systolic 65–124; BP diastolic 38–98; PULSE 73–110; RESP 16–22; TEMP 36.2–37.6; O2SAT 92–99; BMI 30.7; BMI 30.1
--- NOTE | 2021-03-10 01:13 | PC.NURSE ---
0054 spoke with citrix consultant pharmacist who ordered pts heparin dose be changed to 950 units/hr
[2021-03-10 02:42] LABS: Lactic Acid 3.4 mmol/L (0.7-2.1)
[2021-03-10 02:42] LABS: POC Glucose,Bedside 274 (70-110)
--- NOTE | 2021-03-10 03:39 | PC.NURSE ---
0300 spoke with plant operator control room operator pharmacist Sage Zazueta he order a heparin dosage change frrom 950 units/hr to 700units/hr
--- NOTE | 2021-03-10 04:42 | PC.NURSE ---
trash pulled and ice water passed at this time
[2021-03-10 05:22] LABS: POC Glucose,Bedside 267 (70-110)
--- NOTE | 2021-03-10 06:17 | PC.NURSE ---
0230 pt had two low blood pressures 75/51 and 82/55and a pulse rate of 120 0250 sepsis bolus of 2460mL was started @ 150 mL/hr 299 paged fire department battalion chief [address] Cardenas who change rate of bolus to 500 mL/hr for two hours then change rate back to 150 mL/hr, Dr cardenas was also made aware of a lump that appeared on the right side of the pts neck
[2021-03-10 06:31] LABS: Reflex Lactic Add Lactic Reflex
--- NOTE | 2021-03-10 07:22 | HMH.ACPN2 ---
Internal Medicine - PN: Subj *Date: 03/10/21 *Time: 07:22 Interval history: Late yesterday morning during nursing assessment the nurse found the patient's right lower extremity to be cool to the touch and discolored. Pulse was difficult to find. Arterial Doppler was ordered and patient had a common femoral artery clot. Cardiology was consulted and patient was taken to the Aluminum Siding Mechanic where an extensive clot from the right arterial circulation was removed. Patient has since been placed on heparin and started on Xarelto. Overnight patient's blood cultures returned positive patient was started on cefepime and vancomycin. Patient began showing signs of sepsis that required fluid bolus. She had an altered level of consciousness but became more aware as time progressed throughout the night. Nursing staff was required to frequently check and assess and calm the patient beginning early this morning Exam Vital signs and Labs for Last 24 Hours: Temp Pulse Resp BP Pulse Ox 97.7 F 103 H 22 89/53 L 96 03/10/21 04:00 03/10/21 04:00 03/10/21 04:00 03/10/21 06:50 03/10/21 04:00 Laboratory Results - last 24 hr 03/09/21 05:29: PTH Intact 234.3 H 03/09/21 05:29: 25-OH Vitamin D Total 14.3 L 03/09/21 11:26: POC Glucose 178 H 03/09/21 14:34: APTT 28.8 03/09/21 17:23: POC Glucose 207 H 03/09/21 20:49: POC Glucose 202 H 03/09/21 21:25: APTT 139.0 H* D 03/09/21 23:58: APTT 139.0 H* 03/10/21 02:17: APTT 139.0 H* 03/10/21 02:18: Lactate 3.4 H 03/10/21 02:34: POC Glucose 274 H 03/10/21 05:08: POC Glucose 267 H I & O for Last 24 hours: Intake & Output 03/07/21 03/08/21 03/09/21 03/10/21 11:59 11:59 11:59 11:59 Intake Total 3158 / 3158 787 / 787 Output Total 1650 / 1650 1000 / 1000 Balance 1508 / 1508 -213 / -213 Weight 180 lb 5 oz 184 lb 7 oz Microbiology Reports for the Last 24 Hours: Microbiology 03/08/21 21:10 Urine,Catheterized Urine Culture - Preliminary NO GROWTH AFTER 24 HOURS 03/08/21 23:40 Blood Blood Culture - Preliminary 03/08/21 23:40 Blood Blood Culture - Preliminary - Constitutional no acute distress - *Routine Respiratory Exam Present: CTA bilaterally - *Routine Cardiovascular Exam Present: irregular rhythm - *Routine Abdominal Exam Present: soft, normoactive bowel sounds. Absent: tenderness - *Routine Extremities Exam Comments: Mild tenderness the right medial thigh. Skin is warm to the touch with foot being slightly cooler - *Routine Neurological Exam Present: alert, motor deficit. Absent: oriented X3, sensory deficit Assessment and Plan (1) Thrombosis of common femoral artery Status: Acute Category: Medical Code(s): I74.3 - Embolism and thrombosis of arteries of the lower extremities (2) Rhabdomyolysis Status: Acute Qualifiers: Rhabdomyolysis type: non-traumatic Qualified Code(s): M62.82 - Rhabdomyolysis Category: Medical Code(s): M62.82 - Rhabdomyolysis (3) Hypercalcemia Status: Acute Category: Medical Code(s): E83.52 - Hypercalcemia (4) DJD (degenerative joint disease), lumbar Status: Acute Qualifiers: Spinal osteoarthritis complication: with myelopathy Qualified Code(s): M47.16 - Other spondylosis with myelopathy, lumbar region Category: Medical Code(s): M47.816 - Spondylosis without myelopathy or radiculopathy, lumbar region (5) Diabetes Status: Acute Qualifiers: Diabetes mellitus type: type 2 Diabetes mellitus solar sales consultant insulin use: unspecified solar sales consultant insulin use status Diabetes mellitus complication status: with other specified complication Qualified Code(s): E11.69 - Type 2 diabetes mellitus with other specified complication Category: Medical Code(s): E11.9 - Type 2 diabetes mellitus without complications (6) A-fib Status: Chronic Qualifiers: Atrial fibrillation type: unspecified chronic Qualified Code(s): I48.20 - Chronic atrial fi
[2021-03-10 07:28] LABS: Lactic Acid Follow Up (RFLX 1) 2.4 mmol/L (0.7-2.1)
[2021-03-10 07:31] LABS: Basophils # 0.1 K/mm3 (0-0.2); Basophils % 0.2 % (0.1-2.0); Eosinophils # 0.1 K/mm3 (0.0-0.4); Eosinophils % 0.4 % (0.1-12.0); Hematocrit 35.2 % (37.0-47.0); Hemoglobin 11.6 g/dL (12.2-16.2); Lymphocytes # 1.6 K/mm3 (0.7-4.5); Lymphocytes % 7.4 % (10-50); Mean Corpuscular HGB Conc 32.9 g/dL (31.8-35.4); Mean Corpuscular Hemoglobin 31.2 pg (27.0-31.2); Mean Corpuscular Volume 94.8 fl (81-99); Mean Platelet Volume 9.9 fl (7.4-10.4); Monocytes % 4.6 % (1.7-9.3); Neutrophils # 18.5 K/mm3 (1.8-7.8); Neutrophils % 87.4 % (37.0-80.0); Platelet Count 251 K/mm3 (142-424); Red Blood Count 3.72 M/mm3 (4.20-5.40); Red Cell Distribution Width 13.9 % (11.5-17.5); White Blood Count 21.2 K/mm3 (4.8-10.8)
[2021-03-10 07:37] LABS: MANUAL DIFFERENTIAL MANUAL DIFFERENTIAL (MANUAL DIFF)
[2021-03-10 07:43] LABS: Chloride 106 mmol/L (98-107); Potassium 4.2 mmoL/L (3.5-5.1); Sodium 132 mmol/L (136-145)
[2021-03-10 07:46] LABS: Anion Gap 15.2 mEq/L (5-15); Blood Urea Nitrogen 22 mg/dl (7-17); Carbon Dioxide 15 mmol/L (22.0-30.0); Creatinine Clearance Estimated 47 mL/min (50-200); Estimated Glomerular Filt Rate 43 ml/min (>60); GFR (African American) 52 ML/MIN (>60); Glucose 255 mg/dl (74-100)
[2021-03-10 08:23] LABS: Adenovirus F 40/41, stool Not Detected (NotDetected); Astrovirus Not Detected (NotDetected); Campylobacter Not Detected (NotDetected); Clostridium Difficile A/B, PCR Not Detected (NotDetected); Cryptosporidium Not Detected (NotDetected); Cyclospora Cayetanesis Not Detected (NotDetected); Entamoeba histolytica Not Detected (NotDetected); Enteroaggregative E coli Not Detected (NotDetected); Enteropathogenic E coli Not Detected (NotDetected); Enterotoxigenic E coli Not Detected (NotDetected); Giardia lamblia Not Detected (NotDetected); Norovirus Not Detected (NotDetected); Plesimonas Shigalloides, PCR Not Detected (NotDetected); Rotavirus A Not Detected (NotDetected); Salmonella, PCR Not Detected (NotDetected); Sapovirus Not Detected (NotDetected); Shiga-like toxin E coli Not Detected (NotDetected); Shigella Enterovasive E coli Not Detected (NotDetected); Vibrio Cholerae Not Detected (NotDetected); Vibrio, PCR Not Detected (NotDetected); Yersinia Entercolitica, PCR Not Detected (NotDetected)
[2021-03-10 09:14] LABS: Reflex Lactic (2 hrs) Add Lactic Reflex
[2021-03-10 09:46] LABS: Lactic Acid Follow up (RFLX 2) 2.9 mmol/L (0.7-2.1)
[2021-03-10 09:58] LABS: Lymphocytes % 6 % (10-50); Monocytes % 5 % (2-9); Neutrophils % 89 % (42-76); Total Cells Counted 100
[2021-03-10 09:59] LABS: Platelet Estimate Normal; RBC Morphology Normal
--- NOTE | 2021-03-10 10:00 | HMH.PHAHEP ---
[facility] Pharmacy Heparin Dosing - Demographic Data Admission date:: 03/07/21 Date: 03/10/21 Time: 10:00 Allergies/Adverse Reactions: Allergies Allergy/AdvReac Type Severity Reaction Status Date / Time No Known Allergies Allergy Verified 05/03/20 00:44 Height: 1.65 m Weight: 82 kg - Indication Medication therapy:: Heparin Patient Problems: Current Active Problems Fall (Acute) DJD (degenerative joint disease), lumbar (Acute) A-fib (Chronic) Diabetes (Acute) Essential hypertension (Chronic) RBBB (right bundle branch block with left anterior fascicular block) (Acute) Rhabdomyolysis (Acute) Hypercalcemia (Acute) SIRS (systemic inflammatory response syndrome) (Acute) Lumbar spinal stenosis (Acute) Thrombosis of common femoral artery (Acute) CVA?: No Bleeding problem?: No Kidney disease?: No NE?: No Additional History:: FROM PROGRESS NOTE 03/10/21 Late yesterday morning during nursing assessment the nurse found the patient's right lower extremity to be cool to the touch and discolored. Pulse was difficult to find. Arterial Doppler was ordered and patient had a common femoral artery clot. Cardiology was consulted and patient was taken to the Gas Scrubber Operator where an extensive clot from the right arterial circulation was removed. Patient has since been placed on heparin and started on Xarelto. PHARMACY CONSULTED TO MANAGE HEPARIN THERAPY Desired PTT range:: 50-70 seconds - Labs Anticoagulation Lab Results:: 03/10/21 07:03 Hgb 11.6 L Hct 35.2 L Plt Count 251 - Monitoring Dose Monitor 1 Date: 03/09/21 Time: 14:34 (BASELINE) PTT Result:: 28.8 Infusion Rate:: 1450 UNITS/HR => 28 MLS/HR Comment:: BOLUS OF 6,500 UNITS GIVEN IN ADDITION TO 8,[address] TEAM MEMBER EARLIER Dose Monitor 2 Date: 03/09/21 Time: 21:25 PTT Result:: > 139, REDUCE DOSE BY 3 UNITS/KG/HOUR Infusion Rate:: 1200 UNITS/HR => 24 MLS/HR Dose Monitor 3 Date: 03/09/21 Time: 23:58 PTT Result:: >139, REDUCE RATE BY 3 UNITS/KG/HR Infusion Rate:: 950 UNITS/HR => 19MLS/HR Dose Monitor 4 Date: 03/09/21 Time: 02:17 PTT Result:: >139, REDUCE RATE BY 3 UNITS/KG/HR Infusion Rate:: 700 UNITS/HR => 14 MLS/HR Dose Monitor 5 Date: 03/10/21 Time: 07:22 PTT Result:: >139, REDUCE RATE BY ~3 UNITS/KG/HR Infusion Rate:: 400 UNITS/HR => 8 MLS/HR Comment:: SPOKE WITH MIKY KNOX, WILL DISCONTINUE HEPARIN 6 HOURS AFTER PLAVIX AND XARELTO DOSE (~1400) SPOKE WITH SARAN URRUTIA - Core Measures Is INR > or = 2 at discharge?: No Most Recent Labs:: Laboratory Results - last 24 hr 03/09/21 11:26: POC Glucose 178 H 03/09/21 14:34: APTT 28.8 03/09/21 17:23: POC Glucose 207 H 03/09/21 20:49: POC Glucose 202 H 03/09/21 21:25: APTT 139.0 H* D 03/09/21 23:58: APTT 139.0 H* 03/10/21 02:17: APTT 139.0 H* 03/10/21 02:18: Lactate 3.4 H 03/10/21 02:34: POC Glucose 274 H 03/10/21 05:08: POC Glucose 267 H 03/10/21 07:03: WBC 21.2 H* D, RBC 3.72 L, Hgb 11.6 L, Hct 35.2 L, MCV 94.8, MCH 31.2, MCHC 32.9, RDW 13.9, Plt Count 251, MPV 9.9, Neut % (Auto) 87.4 H, Lymph % (Auto) 7.4 L, [place] % (Auto) 4.6, Eos % (Auto) 0.4, Baso % (Auto) 0.2, Neut # (Auto) 18.5 H, Lymph # (Auto) 1.6, [place] # (Auto) 1.0, Eos # (Auto) 0.1, Baso # (Auto) 0.1, Total Counted 100, Neutrophils % (Manual) 89 H, Lymphocytes % (Manual) 6 L, Monocytes % (Manual) 5, Platelet Estimate Normal, RBC Morphology Normal 03/10/21 07:03: Sodium 132 L, Potassium 4.2, Chloride 106, Carbon Dioxide 15 L D, Anion Gap 15.2 H, BUN 22 H D, Creatinine 1.20 H D, Estimated Creat Clear 47, Estimated GFR 43 L, Est GFR ( Amer) 52 L D, Glucose 255 H 03/10/21 07:03: Lactate 2.4 H 03/10/21 07:03: APTT 139.0 H* 03/10/21 09:29: Lactate 2.9 H If INR was < than 2.0 why was therapy stopped?: not continuing on warfarin, starting xarelto Were Heparin and Warfarin started on the same day?: No If not, why?: not continuing of warfarin
--- NOTE | 2021-03-10 10:10 | HMH.PNCARD ---
Subjective Date: 03/10/21 Time: 10:10 Principal diagnosis: Acute thromboembolic event to right leg Interval history: 85 yo WF in bed in NAD. Nurse relates pt developed elevated temp and low BP last night which prompted sepsis protocol including fluid bolus (ongoing). Now on IV Abx geared toward staph infection noted on blood cultures. Systolic BP in the 90's pulse around 100 bpm Pt with minimal responsiveness. right leg temp is same as left. DP pulse is palpable but weak. Exam Vital signs and Labs for Last 24 Hours: Temp Pulse Resp BP Pulse Ox 97.9 F 100 H 18 107/53 L 92 L 03/10/21 08:05 03/10/21 09:20 03/10/21 08:05 03/10/21 09:20 03/10/21 08:05 Laboratory Results - last 24 hr 03/09/21 11:26: POC Glucose 178 H 03/09/21 14:34: APTT 28.8 03/09/21 17:23: POC Glucose 207 H 03/09/21 20:49: POC Glucose 202 H 03/09/21 21:25: APTT 139.0 H* D 03/09/21 23:58: APTT 139.0 H* 03/10/21 02:17: APTT 139.0 H* 03/10/21 02:18: Lactate 3.4 H 03/10/21 02:34: POC Glucose 274 H 03/10/21 05:08: POC Glucose 267 H 03/10/21 07:03: WBC 21.2 H* D, RBC 3.72 L, Hgb 11.6 L, Hct 35.2 L, MCV 94.8, MCH 31.2, MCHC 32.9, RDW 13.9, Plt Count 251, MPV 9.9, Neut % (Auto) 87.4 H, Lymph % (Auto) 7.4 L, [place] % (Auto) 4.6, Eos % (Auto) 0.4, Baso % (Auto) 0.2, Neut # (Auto) 18.5 H, Lymph # (Auto) 1.6, [place] # (Auto) 1.0, Eos # (Auto) 0.1, Baso # (Auto) 0.1, Total Counted 100, Neutrophils % (Manual) 89 H, Lymphocytes % (Manual) 6 L, Monocytes % (Manual) 5, Platelet Estimate Normal, RBC Morphology Normal 03/10/21 07:03: Sodium 132 L, Potassium 4.2, Chloride 106, Carbon Dioxide 15 L D, Anion Gap 15.2 H, BUN 22 H D, Creatinine 1.20 H D, Estimated Creat Clear 47, Estimated GFR 43 L, Est GFR ( Amer) 52 L D, Glucose 255 H 03/10/21 07:03: Lactate 2.4 H 03/10/21 07:03: APTT 139.0 H* 03/10/21 09:29: Lactate 2.9 H I & O for Last 24 hours: Intake & Output 03/07/21 03/08/21 03/09/21 03/10/21 11:59 11:59 11:59 11:59 Intake Total 3158 / 3158 1087 / 1087 Output Total 1650 / 1650 1000 / 1000 Balance 1508 / 1508 87 / 87 Weight 180 lb 5 oz 180 lb 12.465 oz Microbiology Reports for the Last 24 Hours: Microbiology 03/08/21 21:10 Urine,Catheterized Urine Culture - Preliminary NO GROWTH AFTER 24 HOURS 03/08/21 23:40 Blood Blood Culture - Preliminary 03/08/21 23:40 Blood Blood Culture - Preliminary - Constitutional no acute distress, somnolent - *Routine Respiratory Exam Present: decreased breath sounds - *Routine Cardiovascular Exam Present: irregular rhythm - *Routine Extremities Exam Absent: cyanosis, clubbing, edema - *Routine Neurological Exam Present: alert Progress Note: A&P (1) Thrombosis of common femoral artery Status: Acute (2) Rhabdomyolysis Status: Acute (3) Hypercalcemia Status: Acute (4) DJD (degenerative joint disease), lumbar Status: Acute (5) Diabetes Status: Acute (6) A-fib Status: Chronic (7) Lumbar spinal stenosis Status: Acute (8) Fall Status: Acute Assessment and Plan for All Diagnoses:: 1. Acute thromboembolic event to right common femoral artery s/p thrombectomy and multiple stenting. Now on IV heparin which will be stopped about 2 PM with continuation of ASA 81 mg daily (for 30 days only), plavix 75 mg daily (indefinitely) and Xarelto 15 mg BID for 21 days then 15 mg daily (indefinitely) based on current CrCl of 47. 2. Sepsis, per PCP 3. A. fib, rate controlled, now on Xarelto. Diltiazem ordered for rate control but being held due to hypotension. 4. Unknown baseline mental status 5. diabetes, per PCP 6. Rhabdomyolysis 7. Elevated troponin with normal LVEF on echo. Hold on LHC at this time due to increased renal functions, large contrast load yesterday and possible sepsis with hypotension. Continue ASA and plavix.
--- NOTE | 2021-03-10 11:25 | PC.NURSE ---
Sepsis bolus completed at 1120
[2021-03-10 11:44] LABS: CATHL Activated Clotting Time > 400 SEC (74-125)
[2021-03-10 11:44] LABS: CATHL Activated Clotting Time 330 SEC (74-125)
[2021-03-10 12:03] LABS: Calcium 9.6 mg/dl (8.4-10.2)
[2021-03-10 17:24] LABS: POC Glucose,Bedside 224 (70-110)
--- NOTE | 2021-03-10 17:30 | PC.NURSE ---
Pt is alert to self. She has been more talkative today than yesterday. She was up to the chair for approx 45 minutes but didn't tolerate well. She was a max assist with patient providing little to no help with transfer. On morning assessment RLE was same temp as LLE with a faint palpable pedal pulse. Pulses and temperature checked approx [id number]. At approx 1300 RLE felt a little cooler then LLE and pulse was impalpable. It was not able to be dopplered either. LISETTE Marie was notified as well as Dr Melendez and Dr Pittman. Dr Melendez came to the floor to assess pt and afterwards stated it is OK to DC heparin drip. Dr Pittman also notified that patient has had < 100mls of urine out this shift. Antibiotics adjusted and we will continue to monitor at this time. Pt has had a poor appetite. She states she just isn't hungry. She has had multiple loose stools. Specimen collected and sent to lab per protocol. She also has a lump on the right side of her neck. It is soft and non tender. Family has been to visit and have been updated on plan of care. Will continue to monitor.
[2021-03-10 21:15] LABS: POC Glucose,Bedside 152 (70-110)
--- NOTE | 2021-03-10 21:57 | PC.NURSE ---
Called to advise that Patient had Thrombectomy with 4 stents and that the Dorsalis Pedis Pulse in the RLE was not palpable. Upon Doppler examination pulses were identified, however, no pulse in the Posterior tibial pulse was absent via doppler. Also advised Dr. Cortes that the Core Worker requested to turn of Heparin gtt at [address]. Dr. Melendez came to visit patient on the previous shift. I then advised Dr. Cortes that patient had scant urine output with 150 ml NS running. He ordered 250 ml bolus and a CXZ for am. Will place order.
[2021-03-11] VITALS (17 sets, daily range): BP systolic 97–143; BP diastolic 37–87; PULSE 64–130; RESP 16–21; TEMP 35.6–36.5; O2SAT 96–100; BMI 34.2
--- NOTE | 2021-03-11 00:45 | ECG_ITS ---
APPROVED REPORT Exam: Resting ECG HR:113 bpm ECG Measurements Heart Rate 113 AXES QRSd 104 QRS 99 QT 352 T -50 QTc 482 Conclusion Atrial fibrillation with rapid ventricular response with premature ventricular or aberrantly conducted complexes Rightward axis Low voltage QRS Incomplete right bundle branch block T wave abnormality, consider inferior ischemia or digitalis effect Abnormal ECG Electronically signed by : Yahir Patrick, 03/11/2021 08:43:36
[2021-03-11 05:52] LABS: POC Glucose,Bedside 210 (70-110)
--- NOTE | 2021-03-11 06:00 | XR_ITS ---
PROCEDURE: XR CHEST PORTABLE CLINICAL HISTORY: Pt Hx of CHF COMPARISON: CR XR CHEST PORTABLE from 05/03/2020 CR XR CHEST PORTABLE from 03/08/2021 FINDINGS: There is mild cardiomegaly failure. Lungs are clear. No acute bony anomalies. IMPRESSION: No change with no acute finding. Dictated by: Keith Hernandez MD 03/11/2021 08:40 Keith Hernandez MD in [facility] 03/11/2021 08:40
--- NOTE | 2021-03-11 06:15 | PC.NURSE ---
Pt oriented to self and slept off an on all night. Patient heart rate in high 130's, performed ECG, diagnosed as A fib with RVR. Placed ECG order from Dr. Marcelo who then interpreted. Per MD continue to monitor. Patient also had little urine output 150 ml for the entire shift. Patient received 250 ml NaCL bolus along with 150 mL per hour. MD aware. Pt appetite poor, however, has been asking for water this morning. Patient swallowing well. Patient RLE has no palpable pulses, i.e. popliteal, posterior tibial and dorsalis pedis. Doppler obtained and pulses audible dorsalis pedis RLE. Will continue to monitor for any acute changes.
--- NOTE | 2021-03-11 08:07 | HMH.ACPN2 ---
Internal Medicine - PN: Sherri *Date: 03/11/21 *Time: 08:07 Interval history: No acute events overnight. Patient has remained stable. Patient states I feel . She reports persistence of pain in the right leg. Exam Vital signs and Labs for Last 24 Hours: Temp Pulse Resp BP Pulse Ox 97.4 F L 64 16 107/68 L 97 03/11/21 07:45 03/11/21 07:45 03/11/21 07:45 03/11/21 07:45 03/11/21 07:45 Laboratory Results - last 24 hr 03/09/21 15:22: Activated Clotting Time 330 H* 03/09/21 16:26: Activated Clotting Time > 400 H* D 03/10/21 07:03: Total Counted 100, Neutrophils % (Manual) 89 H, Lymphocytes % (Manual) 6 L, Monocytes % (Manual) 5, Platelet Estimate Normal, RBC Morphology Normal 03/10/21 07:03: Calcium 9.6 D 03/10/21 07:03: APTT 139.0 H* 03/10/21 08:15: Stl Aeromonas (PCR) Not detected, Stl C. cayetanensis PCR Not detected, Stool Rotavirus (PCR) Not detected, Stl Adenov F 40/41 PCR Not detected, Stool Astrovirus (PCR) Not detected, Stool Campylobacter PCR Not detected, Stl C.difficile Tox PCR Not detected, Stool Cryptosporidium PCR Not detected, Stl E.coli Shiga Tox PCR Not detected, Stool E coli O157 PCR Not detected, Stl Enterotoxigenic E PCR Not detected, Stool EPEC (PCR) Not detected, Stool EAEC (PCR) Not detected, Stl E. histolytica PCR Not detected, Stool Giardia Lamblia PCR Not detected, Stool Salmonella PCR Not detected, Stool Sapovirus (PCR) Not detected, Stl P. shigelloides PCR Not detected, Stl Shigella/EIEC PCR Not detected, St Y.enterocolitica PCR Not detected, Stool Vibrio (PCR) Not detected, Stl Vibrio cholerae PCR Not detected, Stl Norovirus GI/GII PCR Not detected 03/10/21 09:29: Lactate 2.9 H 03/10/21 17:18: POC Glucose 224 H 03/10/21 21:01: POC Glucose 152 H 03/11/21 05:11: POC Glucose 210 H I & O for Last 24 hours: Intake & Output 03/08/21 03/09/21 03/10/21 03/11/21 11:59 11:59 11:59 11:59 Intake Total 3158 / 3158 5208 / 5208 3210 / 3210 Output Total 1650 / 1650 1045 / 1045 150 / 150 Balance 1508 / 1508 4163 / 4163 3060 / 3060 Weight 180 lb 5 oz 180 lb 12.465 oz 205 lb 2 oz Microbiology Reports for the Last 24 Hours: Microbiology 03/08/21 23:40 Blood Blood Culture - Preliminary 03/08/21 23:40 Blood Blood Culture - Preliminary 03/08/21 21:10 Urine,Catheterized Urine Culture - Final NO GROWTH AFTER 48 HOURS Narrative: Patient looks tired. She awakens easily. Answers questions appropriately and is oriented to person and place. Lungs remain clear. Heart has an irregularly irregular rate and rhythm. Abdomen is soft. Right lower extremity is warm to the touch. Temperature may be slightly cooler in the foot but adequate. Assessment and Plan (1) Thrombosis of common femoral artery Status: Acute Category: Medical Code(s): I74.3 - Embolism and thrombosis of arteries of the lower extremities (2) Rhabdomyolysis Status: Acute Qualifiers: Rhabdomyolysis type: non-traumatic Qualified Code(s): M62.82 - Rhabdomyolysis Category: Medical Code(s): M62.82 - Rhabdomyolysis (3) Hypercalcemia Status: Acute Category: Medical Code(s): E83.52 - Hypercalcemia (4) DJD (degenerative joint disease), lumbar Status: Acute Qualifiers: Spinal osteoarthritis complication: with myelopathy Qualified Code(s): M47.16 - Other spondylosis with myelopathy, lumbar region Category: Medical Code(s): M47.816 - Spondylosis without myelopathy or radiculopathy, lumbar region (5) Diabetes Status: Acute Qualifiers: Diabetes mellitus type: type 2 Diabetes mellitus parts counterman insulin use: unspecified senior living insulin use status Diabetes mellitus complication status: with other specified complication Qualified Code(s): E11.69 - Type 2 diabetes mellitus with other specified complication Category: Medical Code(s): E11.9 - Type 2 diabetes mellitus without complications (6) A-fib Status: Chronic Qualifiers:
[2021-03-11 10:06] LABS: Microscopic, Urine URINE MICROSCOPIC (MICROSCOPIC)
[2021-03-11 10:12] LABS: Appearance,Urine CLEAR (Clear); Blood, Urine 3+ (Negative); Color,Urine YELLOW (Yellow); Glucose,Urine (UA) TRACE (Negative); Ketones,Urine TRACE (Negative); Leukocyte Esterase,Urine Negative (Negative); Nitrate,Urine Negative (Negative); Protein,Urine 2+ (Negative); Specific Gravity, Urine 1.025 (1.005-1.030); Urobilinogen,Urine 0.2 EU/dl (0.2)
[2021-03-11 10:15] LABS: Bilirubin,Urine Negative (Negative)
[2021-03-11 10:28] LABS: Amorphous Sediment,Urine 2+ /lpf; Red Blood Cell Casts,Urine Occasional #/lpf (0)
[2021-03-11 10:40] LABS: Basophils # 0.1 K/mm3 (0-0.2); Basophils % 0.3 % (0.1-2.0); Eosinophils # 0.2 K/mm3 (0.0-0.4); Eosinophils % 0.6 % (0.1-12.0); Hematocrit 24.9 % (37.0-47.0); Hemoglobin 8.2 g/dL (12.2-16.2); Lymphocytes # 1.7 K/mm3 (0.7-4.5); Mean Corpuscular HGB Conc 32.8 g/dL (31.8-35.4); Mean Corpuscular Hemoglobin 31.6 pg (27.0-31.2); Mean Corpuscular Volume 96.4 fl (81-99); Mean Platelet Volume 9.3 fl (7.4-10.4); Monocytes % 4.2 % (1.7-9.3); Neutrophils # 21.2 K/mm3 (1.8-7.8); Neutrophils % 87.9 % (37.0-80.0); Platelet Count 257 K/mm3 (142-424); Red Blood Count 2.59 M/mm3 (4.20-5.40); Red Cell Distribution Width 14.4 % (11.5-17.5); White Blood Count 24.1 K/mm3 (4.8-10.8)
[2021-03-11 10:44] LABS: Chloride 108 mmol/L (98-107); Sodium 132 mmol/L (136-145)
[2021-03-11 10:47] LABS: Blood Urea Nitrogen 36 mg/dl (7-17); Calcium 9.1 mg/dl (8.4-10.2); Carbon Dioxide 13 mmol/L (22.0-30.0); Creatinine Clearance Estimated 31 mL/min (50-200); Estimated Glomerular Filt Rate 24 ml/min (>60); GFR (African American) 29 ML/MIN (>60); Glucose 181 mg/dl (74-100)
[2021-03-11 10:51] LABS: MANUAL DIFFERENTIAL MANUAL DIFFERENTIAL (MANUAL DIFF)
--- NOTE | 2021-03-11 11:06 | PC.NURSE ---
spoke with about labs. stated he wanted to type and screen for two units and to transfuse one now
[2021-03-11 12:11] LABS: Burr Cells 1+; Lymphocytes % 18 % (10-50); Monocytes % 1 % (2-9); Neutrophils % 76 % (42-76); Platelet Estimate Normal; Poikilocytosis 1+; Total Cells Counted 100
[2021-03-11 12:12] LABS: POC Glucose,Bedside 204 (70-110)
--- NOTE | 2021-03-11 14:07 | PC.NURSE ---
DID SPEAK WITH DR. EASON TODAY. RELAYED PATIENT LAB RESULTS. LACK OF URINE OUTPUT, HARD TO FIND A PULSE STILL IN R LEG/FOOT, BUT FAINT CAN BE HEARD WITH DOPPLER. HEART RATE HAD BEEN ELEVATED AT TIMESS 120-140S. GETTING 1 UNIT BLOOD. BP HAD BEEN STABLE. R LEG WAS COOL BUT NOT COLD. COLORING OKAY IN FOOT. PAIN IN THAT LEG. MD STATED TO DC THE ASPIRIN AT THIS TIME.
--- NOTE | 2021-03-11 15:21 | PC.NURSE ---
Addendum entered by Letty Neff RN 03/11/21 16:46: DAUGHTER ALSO CALLED FOR US TO MAKE NOTE PATIENT ONLY HAS 1 KIDNEY Addendum entered by Letty Neff RN 03/11/21 16:09: HAS HAD A COUPLE OF BMS THIS SHIFT. NOTED TO BE STICKY AND GREEN IN COLOR. Original Note: PATIENT MENTAL STATUS HAS BEEN OFF AND ON TODAY. WHILE SONS WERE IN ROOM SHE WAS WIDE AWAKE SPEAKING WITH THEM. SHE IS NOT ALERT AND ORIENTED BUT DID WAKE UP AND TALK TO THEM. FAMILY WAS EDUCATED ON PATIENT CURRENT CONDITION AND CARE. SHE HAD COMPLAINTS EARLIER IN SHIFT ABOUT PAIN AND MD MADE AWARE AND ORDER FOR NORCO OBTAINED. HOWEVER PATIENT HAS NOT REQUIRED THIS BECAUSE SHE HAS BEEN A BIT DROWSY . HEART RATE HAS STARTED TO COME DOWN THIS SHIFT. TOLERATED FIRST UNIT OF BLOOD GOOD. TEMPS HAVE BEEN 96.1 AND UP. PATIENT WRAPPED IN WARM BLANKETS TO ASSIST WITH TEMP. PATIENT IS AN EXTREMELY HARD STICK. ULTRASOUND WAS REQUIRED FOR BLOOD DRAWS AND A NEW IV PLACEMENT. SHE DID RIP OUT ONE IV THIS SHIFT. SHE AT TIMES HAS STRIPPED OFF CLOTHING AND PULLED AT THINGS. STATES SHE HAS NO APPETITE. HAS REQUIRED INSULIN FOR FSBS. O2 SATS STABLE. R LEG COOL BUT NOT COLD. VITALS STABLE
[2021-03-11 15:52] LABS: Hematocrit 28.3 % (37.0-47.0)
[2021-03-11 15:56] LABS: Hemoglobin 9.2 g/dL (12.2-16.2)
[2021-03-11 17:02] LABS: POC Glucose,Bedside 238 (70-110)
[2021-03-11 21:25] LABS: POC Glucose,Bedside 235 (70-110)
--- NOTE | 2021-03-11 22:49 | PC.NURSE ---
Could not palpate or doppler RLE pulses including Dorsalis Pedis and Posterior Tibial. Advised MD that was the same trend previous shift and Cards MD aware. Dr. Cortes did not give any new orders. Will continue to monitor for any acute changes.
[2021-03-12] VITALS (23 sets, daily range): BP systolic 96–150; BP diastolic 45–69; PULSE 70–107; RESP 16–20; TEMP 36.5–37; O2SAT 95–100; BMI 33.3
--- NOTE | 2021-03-12 03:43 | PC.NURSE ---
Pt oriented to self and is combative, labile, cursing at staff and ornerous. Patient had 3 loose stools this shift, skin near rectum is red, applied barrier cream, applied brief. PAtient has ecchymosis bilaterally near groin and posterior thigh RLE. Patient has Hx of sundowners and was not compliant with keeping gown on and attempted to elope from bed several times. IT is very difficult to re orient patient. Patient stated that her stomach hurt, gave Zofran 4 mg IV X 1. At this moment, patient in resting with eyes closed in bed.
[2021-03-12 06:36] LABS: POC Glucose,Bedside 336 (70-110)
--- NOTE | 2021-03-12 06:45 | PC.NURSE ---
Pt had loose stool and called MD to obtain an occult stool sample. Also requested a Lactic for this patient. Will continue to monitor.
[2021-03-12 07:00] LABS: Occult Blood,Stool Positive (Negative)
[2021-03-12 08:20] LABS: Basophils # 0.1 K/mm3 (0-0.2); Basophils % 0.2 % (0.1-2.0); Eosinophils # 0.1 K/mm3 (0.0-0.4); Eosinophils % 0.5 % (0.1-12.0); Hematocrit 24.7 % (37.0-47.0); Lymphocytes # 1.2 K/mm3 (0.7-4.5); Lymphocytes % 5.7 % (10-50); Mean Corpuscular HGB Conc 32.2 g/dL (31.8-35.4); Mean Corpuscular Hemoglobin 30.8 pg (27.0-31.2); Mean Corpuscular Volume 95.5 fl (81-99); Mean Platelet Volume 8.9 fl (7.4-10.4); Monocytes # 0.7 K/mm3 (0.1-1.0); Monocytes % 3.2 % (1.7-9.3); Neutrophils # 18.9 K/mm3 (1.8-7.8); Neutrophils % 90.4 % (37.0-80.0); Platelet Count 209 K/mm3 (142-424); Red Blood Count 2.59 M/mm3 (4.20-5.40); Red Cell Distribution Width 15.5 % (11.5-17.5); White Blood Count 20.9 K/mm3 (4.8-10.8)
--- NOTE | 2021-03-12 08:21 | HMH.ACPN2 ---
Internal Medicine - PN: Subj *Date: 03/12/21 *Time: 08:21 Interval history: Patient received 1 unit of packed red blood cells yesterday due to anemia. Patient had no events during the day yesterday and was able to communicate with family who visited. She did require reorientation at times. Overnight patient seemed to decline and has become less interactive according to staff. Exam Vital signs and Labs for Last 24 Hours: Temp Pulse Resp BP Pulse Ox 98.5 F 96 H 16 96/59 L 96 03/12/21 07:46 03/12/21 07:46 03/12/21 07:46 03/12/21 07:46 03/12/21 07:46 Laboratory Results - last 24 hr 03/11/21 09:25: Urine Color Yellow, Urine Appearance Clear, Urine pH 5.0, Ur Specific [place] 1.025, Urine Protein 2+, Urine Glucose (UA) Trace, Urine Ketones Trace, Urine Blood 3+, Urine Nitrate Negative, Urine Bilirubin Negative, Urine Urobilinogen 0.2, Ur Leukocyte Esterase Negative, Urine RBC 10-20, Urine WBC None, Ur Squamous Epith Cells 5-10, Amorphous Sediment 2+, Urine Bacteria None, RBC Casts Occasional 03/11/21 10:30: WBC 24.1 H*, RBC 2.59 L D, Hgb 8.2 L, Hct 24.9 L, MCV 96.4, MCH 31.6 H, MCHC 32.8, RDW 14.4, Plt Count 257, MPV 9.3, Neut % (Auto) 87.9 H, Lymph % (Auto) 7.0 L, [place] % (Auto) 4.2, Eos % (Auto) 0.6, Baso % (Auto) 0.3, Neut # (Auto) 21.2 H, Lymph # (Auto) 1.7, [place] # (Auto) 1.0, Eos # (Auto) 0.2, Baso # (Auto) 0.1, Total Counted 100, Neutrophils % (Manual) 76, Band Neutrophils % 5.0, Lymphocytes % (Manual) 18, Monocytes % (Manual) 1 L, Platelet Estimate Normal, Poikilocytosis 1+, [place] Cells 1+ 03/11/21 10:30: Sodium 132 L, Potassium 4.0, Chloride 108 H, Carbon Dioxide 13 L, Anion Gap 15.0, BUN 36 H D, Creatinine 2.00 H D, Estimated Creat Clear 31, Estimated GFR 24 L, Est GFR ( Amer) 29 L D, Glucose 181 H, Calcium 9.1 03/11/21 10:30: Blood Type Confirm A Positive 03/11/21 11:28: Blood Type Cancelled, Rho(D) Type Cancelled, Antibody Screen Cancelled, Crossmatch (AHG) See Detail 03/11/21 11:28: Blood Type A Positive, Antibody Screen Negative 03/11/21 11:39: POC Glucose 204 H 03/11/21 15:40: Hgb 9.2 L D, Hct 28.3 L 03/11/21 16:40: POC Glucose 238 H 03/11/21 20:51: POC Glucose 235 H 03/12/21 06:18: POC Glucose 336 H* 03/12/21 06:41: Stool Occult Blood Positive A I & O for Last 24 hours: Intake & Output 03/09/21 03/10/21 03/11/21 03/12/21 11:59 11:59 11:59 11:59 Intake Total 3158 / 3158 5208 / 5208 3210 / 3210 1175 / 1175 Output Total 1650 / 1650 1045 / 1045 150 / 150 175 / 175 Balance 1508 / 1508 4163 / 4163 3060 / 3060 1000 / 1000 Weight 180 lb 5 oz 180 lb 12.465 oz 205 lb 2 oz 200 lb 6 oz Microbiology Reports for the Last 24 Hours: Microbiology 03/08/21 23:40 Blood Blood Culture - Preliminary Staphylococcus hominis 03/08/21 23:40 Blood Blood Culture - Preliminary Staphylococcus hominis Narrative: Patient is pale in appearance but does not appear to be in any distress. She awakens easily when her name is called. Patient answers questions appropriately and is oriented to person and place for me. Lungs reveal clear but distant breath sounds. Heart rate is irregular. Abdomen is soft. Right lower extremity is warm to the touch. Foot and ankle are slightly cooler in temperature. Patient is tender edema on the lateral aspect of the leg. Mcneal catheter remains in place and is draining dark urine. Assessment and Plan (1) Thrombosis of common femoral artery Status: Acute Category: Medical Code(s): I74.3 - Embolism and thrombosis of arteries of the lower extremities (2) Rhabdomyolysis Status: Acute Qualifiers: Rhabdomyolysis type: non-traumatic Qualified Code(s): M62.82 - Rhabdomyolysis Category: Medical Code(s): M62.82 - Rhabdomyolysis (3) Hypercalcemia Status: Acute Category: Medical Code(s): E83.52 - Hypercalcemia (4) DJD (degenerative joint disease), lumbar Status: Acute Qualifiers: Spinal os
[2021-03-12 08:24] LABS: MANUAL DIFFERENTIAL MANUAL DIFFERENTIAL (MANUAL DIFF)
[2021-03-12 08:38] LABS: Blood Urea Nitrogen 50 mg/dl (7-17); Chloride 110 mmol/L (98-107); Creatinine Clearance Estimated 31 mL/min (50-200); Estimated Glomerular Filt Rate 24 ml/min (>60); GFR (African American) 29 ML/MIN (>60); Glucose 278 mg/dl (74-100); Sodium 131 mmol/L (136-145)
[2021-03-12 08:42] LABS: Carbon Dioxide 10 mmol/L (22.0-30.0)
[2021-03-12 09:41] LABS: Acanthocytes 1+; Lymphocytes % 13 % (10-50); Monocytes % 1 % (2-9); Neutrophils % 77 % (42-76); Nucleated Red Blood Cells 2; Platelet Estimate Normal; Poikilocytosis 1+; Total Cells Counted 100
--- NOTE | 2021-03-12 10:33 | HMH.ACPN ---
Internal Medicine - PN: Subj *Date: 03/12/21 *Time: 10:33 Exam Vital signs and Labs for Last 24 Hours: Temp Pulse Resp BP Pulse Ox 98.5 F 97 H 16 105/50 L 96 03/12/21 07:46 03/12/21 09:00 03/12/21 07:46 03/12/21 09:00 03/12/21 07:46 Laboratory Results - last 24 hr 03/11/21 10:30: WBC 24.1 H*, RBC 2.59 L D, Hgb 8.2 L, Hct 24.9 L, MCV 96.4, MCH 31.6 H, MCHC 32.8, RDW 14.4, Plt Count 257, MPV 9.3, Neut % (Auto) 87.9 H, Lymph % (Auto) 7.0 L, [place] % (Auto) 4.2, Eos % (Auto) 0.6, Baso % (Auto) 0.3, Neut # (Auto) 21.2 H, Lymph # (Auto) 1.7, [place] # (Auto) 1.0, Eos # (Auto) 0.2, Baso # (Auto) 0.1, Total Counted 100, Neutrophils % (Manual) 76, Band Neutrophils % 5.0, Lymphocytes % (Manual) 18, Monocytes % (Manual) 1 L, Platelet Estimate Normal, Poikilocytosis 1+, [place] Cells 1+ 03/11/21 10:30: Sodium 132 L, Potassium 4.0, Chloride 108 H, Carbon Dioxide 13 L, Anion Gap 15.0, BUN 36 H D, Creatinine 2.00 H D, Estimated Creat Clear 31, Estimated GFR 24 L, Est GFR ( Amer) 29 L D, Glucose 181 H, Calcium 9.1 03/11/21 10:30: Blood Type Confirm A Positive 03/11/21 11:28: Blood Type Cancelled, Rho(D) Type Cancelled, Antibody Screen Cancelled, Crossmatch (AHG) See Detail 03/11/21 11:28: Blood Type A Positive, Antibody Screen Negative 03/11/21 11:39: POC Glucose 204 H 03/11/21 15:40: Hgb 9.2 L D, Hct 28.3 L 03/11/21 16:40: POC Glucose 238 H 03/11/21 20:51: POC Glucose 235 H 03/12/21 06:18: POC Glucose 336 H* 03/12/21 06:41: Stool Occult Blood Positive A 03/12/21 08:11: WBC 20.9 H*, RBC 2.59 L, Hgb 8.0 L, Hct 24.7 L, MCV 95.5, MCH 30.8, MCHC 32.2, RDW 15.5, Plt Count 209, MPV 8.9, Neut % (Auto) 90.4 H, Lymph % (Auto) 5.7 L, [place] % (Auto) 3.2, Eos % (Auto) 0.5, Baso % (Auto) 0.2, Neut # (Auto) 18.9 H, Lymph # (Auto) 1.2, [place] # (Auto) 0.7, Eos # (Auto) 0.1, Baso # (Auto) 0.1, Total Counted 100, Neutrophils % (Manual) 77 H, Band Neutrophils % 7.0, Lymphocytes % (Manual) 13, Monocytes % (Manual) 1 L, Metamyelocytes % 2.0 H, Nucleated RBCs 2, Platelet Estimate Normal, Poikilocytosis 1+, Acanthocytes (Spur) 1+ 03/12/21 08:11: Sodium 131 L, Potassium 4.0, Chloride 110 H, Carbon Dioxide 10 L D, Anion Gap 15.0, BUN 50 H D, Creatinine 2.00 H, Estimated Creat Clear 31, Estimated GFR 24 L, Est GFR ( Amer) 29 L, Glucose 278 H D, Calcium 9.0 I & O for Last 24 hours: Intake & Output 03/09/21 03/10/21 03/11/21 03/12/21 23:59 23:59 23:59 23:59 Intake Total 3945 / 3945 5731 / 5731 3075 / 3075 1610 / 1610 Output Total 2300 / 2650 395 / 395 150 / 150 175 / 175 Balance 1645 / 1295 5336 / 5336 2925 / 2925 1435 / 1435 Weight 81.788 kg 82 kg 93.043 kg 90.889 kg Microbiology Reports for the Last 24 Hours: Microbiology 03/08/21 23:40 Blood Blood Culture - Preliminary Staphylococcus hominis 03/08/21 23:40 Blood Blood Culture - Preliminary Staphylococcus hominis Assessment and Plan (1) Thrombosis of common femoral artery Status: Acute Category: Medical Code(s): I74.3 - Embolism and thrombosis of arteries of the lower extremities (2) Rhabdomyolysis Status: Acute Qualifiers: Rhabdomyolysis type: non-traumatic Qualified Code(s): M62.82 - Rhabdomyolysis Category: Medical Code(s): M62.82 - Rhabdomyolysis (3) Hypercalcemia Status: Acute Category: Medical Code(s): E83.52 - Hypercalcemia (4) DJD (degenerative joint disease), lumbar Status: Acute Qualifiers: Spinal osteoarthritis complication: with myelopathy Qualified Code(s): M47.16 - Other spondylosis with myelopathy, lumbar region Category: Medical Code(s): M47.816 - Spondylosis without myelopathy or radiculopathy, lumbar region (5) Diabetes Status: Acute Qualifiers: Diabetes mellitus type: type 2 Diabetes mellitus chcf insulin use: unspecified chcf insulin use status Diabetes mellitus complication status: with other specified complication Qualified Code(s): E1
--- NOTE | 2021-03-12 11:13 | XR_ITS ---
PROCEDURE: XR CHEST PORTABLE PICC PLAC CLINICAL HISTORY: Confirm PICC line placement COMPARISON: CR XR CHEST PORTABLE from 05/03/2020 CR XR CHEST PORTABLE from 03/08/2021 CR XR CHEST PORTABLE from 03/11/2021 FINDINGS: Right upper extremity PICC line has been inserted. The tip is in good position in the distal SVC. Region Mild cardiomegaly without failure. Slightly elevated right hemidiaphragm. No lobar consolidation or collapse. No acute bony abnormalities. IMPRESSION: Right upper extremity PICC line tip in good position Dictated by: Keith Hernandez MD 03/13/2021 09:22 Keith Hernandez MD in [facility] 03/13/2021 09:22
[2021-03-12 12:19] LABS: POC Glucose,Bedside 260 (70-110)
[2021-03-12 17:29] LABS: POC Glucose,Bedside 297 (70-110)
[2021-03-12 17:52] LABS: Hematocrit 26.1 % (37.0-47.0); Hemoglobin 8.8 g/dL (12.2-16.2)
--- NOTE | 2021-03-12 19:26 | PC.NURSE ---
PT IS RESTING IN BED. PT HAS BEEN ALERT AND ORIENTED X2 THIS SHIFT. PT'S ARRIVED TODAY AND HE IS VERY [place] BUT HE WAS ABLE TO TELL ME THAT HE WAS OKAY WITH STAFF CALLING PT'S SON FELI MCNEILL TO GET PERMISSION TO TREAT. PT'S SON GAVE CONSENT FOR BLOOD TRANSFUSION AND STATED HE WAS OKAY WITH PT HAVING A PICC LINE PLACED TOMORROW. PT'S DAUGHTER WAS ALSO HERE TODAY AND STATED SHE WOULD NOT BE ABLE TO COME [place]UR[place] AND WAS WANTING TO BE KEPT UPDATED MUCH POSSIBLE (LUC SMALL [phone]) LUNG SOUNDS CLEAR. ABDOMEN SOFT/TENDER WITH PALPATION. PT HAD A LOOSE/DARK TARRY STOOL AT THE END OF THIS SHIFT. BRUISING NOTED TO THE RT THIGH. NO PULSES IN THE RLE (PCP NOTIFIED). BOTH RLE/LLE WARM TO TOUCH. SCATTERED BRUISING NOTED TO BUE. TOLERATED BLOOD TRANSFUSION WELL. 2 ADDITIONAL UNITS OF PRBC'S ON HOLD. PCP NOTIFIED ABOUT PT HAVING ONLY 150 ML'S UOP. VSS. WILL CONTINUE TO MONITOR.
[2021-03-12 21:01] LABS: POC Glucose,Bedside 274 (70-110)
[2021-03-13] VITALS (29 sets, daily range): BP systolic 98–146; BP diastolic 50–74; PULSE 80–110; RESP 16–21; TEMP 36.5–37.4; O2SAT 95–99; BMI 33.5
--- NOTE | 2021-03-13 03:06 | PC.NURSE ---
shift summary pt has been very drowsy not wanting to stay awake for very long. pt is alert but confused. pt has a cote in place urine is clear but tea colored. pt has refused to eat or drink during this shift. unable to palpate pulses in pts right leg but it is warm to the touch. pt denies any pain, nausea, or vomiting.
[2021-03-13 05:43] LABS: POC Glucose,Bedside 268 (70-110)
--- NOTE | 2021-03-13 07:28 | HMH.ACPN2 ---
Internal Medicine - PN: Subj *Date: 03/13/21 *Time: 07:28 Interval history: Patient has become less interactive overnight. She did receive a unit of packed red cells yesterday. Urine output has increased overnight to approximately 400 mL over the 12-hour shift. Patient confirms the presence of pain but cannot give further information regarding location this morning Exam Vital signs and Labs for Last 24 Hours: Temp Pulse Resp BP Pulse Ox 98.0 F 80 18 124/65 97 03/13/21 03:35 03/13/21 04:00 03/13/21 03:35 03/13/21 03:35 03/13/21 03:35 Laboratory Results - last 24 hr 03/11/21 11:28: Blood Type Cancelled, Rho(D) Type Cancelled, Antibody Screen Cancelled, Crossmatch (AHG) See Detail 03/12/21 08:11: WBC 20.9 H*, RBC 2.59 L, Hgb 8.0 L, Hct 24.7 L, MCV 95.5, MCH 30.8, MCHC 32.2, RDW 15.5, Plt Count 209, MPV 8.9, Neut % (Auto) 90.4 H, Lymph % (Auto) 5.7 L, [place] % (Auto) 3.2, Eos % (Auto) 0.5, Baso % (Auto) 0.2, Neut # (Auto) 18.9 H, Lymph # (Auto) 1.2, [place] # (Auto) 0.7, Eos # (Auto) 0.1, Baso # (Auto) 0.1, Total Counted 100, Neutrophils % (Manual) 77 H, Band Neutrophils % 7.0, Lymphocytes % (Manual) 13, Monocytes % (Manual) 1 L, Metamyelocytes % 2.0 H, Nucleated RBCs 2, Platelet Estimate Normal, Poikilocytosis 1+, Acanthocytes (Spur) 1+ 03/12/21 08:11: Sodium 131 L, Potassium 4.0, Chloride 110 H, Carbon Dioxide 10 L D, Anion Gap 15.0, BUN 50 H D, Creatinine 2.00 H, Estimated Creat Clear 31, Estimated GFR 24 L, Est GFR ( Amer) 29 L, Glucose 278 H D, Calcium 9.0 03/12/21 11:59: POC Glucose 260 H 03/12/21 17:13: POC Glucose 297 H 03/12/21 17:50: Hgb 8.8 L, Hct 26.1 L 03/12/21 20:53: POC Glucose 274 H 03/13/21 05:04: POC Glucose 268 H I & O for Last 24 hours: Intake & Output 03/10/21 03/11/21 03/12/21 03/13/21 11:59 11:59 11:59 11:59 Intake Total 5208 / 5208 3210 / 3210 2785 / 2785 1500 / 1500 Output Total 1045 / 1045 150 / 150 175 / 175 450 / 450 Balance 4163 / 4163 3060 / 3060 2610 / 2610 1050 / 1050 Weight 180 lb 12.465 oz 205 lb 2 oz 200 lb 6 oz 201 lb 9 oz Microbiology Reports for the Last 24 Hours: Microbiology 03/08/21 23:40 Blood Blood Culture - Preliminary Staphylococcus hominis 03/08/21 23:40 Blood Blood Culture - Preliminary Staphylococcus hominis Narrative: Patient is laying in bed on her right side. She moans and can answer questions with a single word when asked. Heart has an irregular rate and rhythm. Lungs are clear to auscultation. The right leg is tender and edematous. Right leg is warm to the touch. Assessment and Plan (1) Thrombosis of common femoral artery Status: Acute Category: Medical Code(s): I74.3 - Embolism and thrombosis of arteries of the lower extremities (2) Rhabdomyolysis Status: Acute Qualifiers: Rhabdomyolysis type: non-traumatic Qualified Code(s): M62.82 - Rhabdomyolysis Category: Medical Code(s): M62.82 - Rhabdomyolysis (3) Hypercalcemia Status: Acute Category: Medical Code(s): E83.52 - Hypercalcemia (4) DJD (degenerative joint disease), lumbar Status: Acute Qualifiers: Spinal osteoarthritis complication: with myelopathy Qualified Code(s): M47.16 - Other spondylosis with myelopathy, lumbar region Category: Medical Code(s): M47.816 - Spondylosis without myelopathy or radiculopathy, lumbar region (5) Diabetes Status: Acute Qualifiers: Diabetes mellitus type: type 2 Diabetes mellitus long term care phlebotomist insulin use: unspecified long term care phlebotomist insulin use status Diabetes mellitus complication status: with other specified complication Qualified Code(s): E11.69 - Type 2 diabetes mellitus with other specified complication Category: Medical Code(s): E11.9 - Type 2 diabetes mellitus without complications (6) A-fib Status: Chronic Qualifiers: Atrial fibrillation type: unspecified chronic Qualified Code(s): I48.20 - Chronic atrial fib
[2021-03-13 10:59] LABS: Basophils % 0.2 % (0.1-2.0); Eosinophils % 0.1 % (0.1-12.0); Hematocrit 24.1 % (37.0-47.0); Lymphocytes # 1.1 K/mm3 (0.7-4.5); Lymphocytes % 5.6 % (10-50); Mean Corpuscular HGB Conc 33.1 g/dL (31.8-35.4); Mean Corpuscular Hemoglobin 29.3 pg (27.0-31.2); Mean Corpuscular Volume 88.8 fl (81-99); Mean Platelet Volume 8.6 fl (7.4-10.4); Monocytes # 0.9 K/mm3 (0.1-1.0); Monocytes % 4.2 % (1.7-9.3); Neutrophils # 18.1 K/mm3 (1.8-7.8); Neutrophils % 89.9 % (37.0-80.0); Platelet Count 237 K/mm3 (142-424); Red Blood Count 2.72 M/mm3 (4.20-5.40); Red Cell Distribution Width 17.2 % (11.5-17.5); White Blood Count 20.1 K/mm3 (4.8-10.8)
[2021-03-13 11:05] LABS: MANUAL DIFFERENTIAL MANUAL DIFFERENTIAL (MANUAL DIFF)
[2021-03-13 11:14] LABS: Chloride 106 mmol/L (98-107); Sodium 135 mmol/L (136-145)
[2021-03-13 11:17] LABS: Blood Urea Nitrogen 53 mg/dl (7-17); Creatinine Clearance Estimated 44 mL/min (50-200); Estimated Glomerular Filt Rate 36 ml/min (>60); GFR (African American) 43 ML/MIN (>60)
[2021-03-13 11:18] LABS: Anion Gap 8.8 mEq/L (5-15); Carbon Dioxide 23 mmol/L (22.0-30.0); Glucose 200 mg/dl (74-100)
[2021-03-13 11:29] LABS: Potassium 2.8 mmoL/L (3.5-5.1)
[2021-03-13 11:52] LABS: POC Glucose,Bedside 244 (70-110)
--- NOTE | 2021-03-13 12:48 | HMH.ACPN2 ---
Internal Medicine - PN: Subj *Date: 03/13/21 *Time: 12:48 Interval history: Patient's condition was discussed with her son, Vernon Ko. Patient's nurse Kristal Mosqueda was present. Patient's son understands that his mother's condition is guarded and she may from her illness. Her code status was addressed. Both son and nurse confirm that patient's agreed that Vernon Ko could make medical decisions including need or withdrawal of life saving measures. Patient's son indicates she said years ago she did not want to be on life support . We will continue medical measures but honor patient and son's wishes should the patient decline and she will be made a DNR. Exam Vital signs and Labs for Last 24 Hours: Temp Pulse Resp BP Pulse Ox 97.9 F 92 H 20 114/50 L 95 03/13/21 12:00 03/13/21 12:00 03/13/21 12:00 03/13/21 12:00 03/13/21 12:00 Laboratory Results - last 24 hr 03/11/21 11:28: Blood Type Cancelled, Rho(D) Type Cancelled, Antibody Screen Cancelled, Crossmatch (AHG) See Detail 03/12/21 17:13: POC Glucose 297 H 03/12/21 17:50: Hgb 8.8 L, Hct 26.1 L 03/12/21 20:53: POC Glucose 274 H 03/13/21 05:04: POC Glucose 268 H 03/13/21 10:30: WBC 20.1 H*, RBC 2.72 L, Hgb 8.0 L, Hct 24.1 L, MCV 88.8, MCH 29.3, MCHC 33.1, RDW 17.2, Plt Count 237, MPV 8.6, Neut % (Auto) 89.9 H, Lymph % (Auto) 5.6 L, [place] % (Auto) 4.2, Eos % (Auto) 0.1, Baso % (Auto) 0.2, Neut # (Auto) 18.1 H, Lymph # (Auto) 1.1, [place] # (Auto) 0.9, Eos # (Auto) 0.0, Baso # (Auto) 0.0 03/13/21 10:30: Sodium 135 L, Potassium 2.8 L* D, Chloride 106, Carbon Dioxide 23 D, Anion Gap 8.8, BUN 53 H, Creatinine 1.40 H D, Estimated Creat Clear 44, Estimated GFR 36 L, Est GFR ( Amer) 43 L D, Glucose 200 H, Calcium 9.0 03/13/21 11:15: POC Glucose 244 H I & O for Last 24 hours: Intake & Output 03/11/21 03/12/21 03/13/21 03/14/21 11:59 11:59 11:59 11:59 Intake Total 3210 / 3210 2785 / 2785 1560 / 1560 Output Total 150 / 150 175 / 175 450 / 450 Balance 3060 / 3060 2610 / 2610 1110 / 1110 Weight 205 lb 2 oz 200 lb 6 oz 201 lb 9 oz Assessment and Plan (1) Thrombosis of common femoral artery Status: Acute Category: Medical Code(s): I74.3 - Embolism and thrombosis of arteries of the lower extremities (2) Rhabdomyolysis Status: Acute Qualifiers: Rhabdomyolysis type: non-traumatic Qualified Code(s): M62.82 - Rhabdomyolysis Category: Medical Code(s): M62.82 - Rhabdomyolysis (3) Hypercalcemia Status: Acute Category: Medical Code(s): E83.52 - Hypercalcemia (4) DJD (degenerative joint disease), lumbar Status: Acute Qualifiers: Spinal osteoarthritis complication: with myelopathy Qualified Code(s): M47.16 - Other spondylosis with myelopathy, lumbar region Category: Medical Code(s): M47.816 - Spondylosis without myelopathy or radiculopathy, lumbar region (5) Diabetes Status: Acute Qualifiers: Diabetes mellitus type: type 2 Diabetes mellitus custodial insulin use: unspecified custodial insulin use status Diabetes mellitus complication status: with other specified complication Qualified Code(s): E11.69 - Type 2 diabetes mellitus with other specified complication Category: Medical Code(s): E11.9 - Type 2 diabetes mellitus without complications (6) A-fib Status: Chronic Qualifiers: Atrial fibrillation type: unspecified chronic Qualified Code(s): I48.20 - Chronic atrial fibrillation, unspecified Category: Medical Code(s): I48.91 - Unspecified atrial fibrillation (7) Lumbar spinal stenosis Status: Acute Qualifiers: Neurogenic claudication status: with neurogenic claudication Qualified Code(s): M48.062 - Spinal stenosis, lumbar region with neurogenic claudication Category: Medical Code(s): M48.061 - Spinal stenosis, lumbar region without neurogenic claudication (8) Fall Status: Acute Qualifiers: Encounter type: initial encounter Qualified Code(
[2021-03-13 13:12] LABS: Lymphocytes % 5 % (10-50); Monocytes % 9 % (2-9); Neutrophils % 86 % (42-76); Platelet Estimate Normal; RBC Morphology Normal; Total Cells Counted 100
--- NOTE | 2021-03-13 14:16 | DIET.NUTRFU ---
Addendum entered by Shara English 03/15/21 12:49: Pt had speech eval and given puree diet with honey thickened liquids. However she has remained not alert enough to eat. Has not had more than applesauce with meds and sips water. Supplements on diet order but pt has not drank them. Weight has continued to increase, up another 8#. Continues with diarrhea. BG avg. 230. Continuing to monitor. Encouragement/cueing at meal times appreciated, pt may have anything desired within dysphagia diet by request/RN offer. Original Note: Pt now NPO except medication per MD/BEHAVIORAL MEDICAL DIRECTOR recommendation that it is unsafe for pt to attempt PO intake at this time rt fatigue. She has had minimal intake t/o stay, requiring significant encouragement to even take sips. BG moderate, avg.- 250. She has had diarrhea with black tarry stools. Weight is up 17# since admit. Continuing to monitor, will meet nutritional needs as indicated/appropriate, DNR status noted.
[2021-03-13 17:15] LABS: POC Glucose,Bedside 264 (70-110)
--- NOTE | 2021-03-13 20:29 | PC.NURSE ---
PT IS RESTING IN BED ON HER RT SIDE AT THIS TIME. PT HAS BEEN SLEEPING MOST OF THE SHIFT AND HAS NOT BEEN WANTING TO FOLLOW COMMANDS. PT 'S SON WAS AT BEDSIDE EARLY THIS AFTERNOON AND HAD A DISCUSSION WITH PCP ABOUT PT'S PROGNOSIS WHICH IS GUARDED AT THIS TIME. PT'S SON FELI MCNEILL DOES NOT WANT HIS MOTHER TO HAVE CHEST COMPRESSIONS OR BE ON A VENTILATOR B/C HE STATES HIS MOTHER HAS TOLD HIM IN THE PAST THAT SHE DID NOT WANT THAT. YESTERDAY PT'S ERASMO DOWNS WAS AT BEDSIDE AND IT WAS DISCUSSED SINCE HE WAS VERY [place] AND WAS NOT ALWAYS EASY TO GET IN TOUCH WITH OVER THE PHONE IF HE WOULD GIVE PT'S SON FELI MCNEILL THE RIGHT TO GIVE PERMISSION TO TREAT PT AND AT THIS TIME WAS OKAY WITH STAFF CONTACTING HOWEVER CODE STATUS WAS NEVER DISCUSSED AT THIS TIME. ANOTHER SON BROUGHT TO THE HOSPITAL TODAY AND A LONG DISCUSSION WAS HAD WITH HIM ABOUT PT'S PROGNOSIS AND EVERYTHING THAT DISCUSSED WITH FELI MCNEILL EARLIER THAT AFTERNOON. FELI MCNEILL AND ANOTHER SON WAS IN THE ROOM AT THE TIME OF DISCUSSION. STATED IF HER HEART STOPS I WANT EVERYTHING DONE B/C I KNOW SHE DOES NOT WANT TO STATED IF IT WAS HIM HE WOULD WANT THE SAME THING DONE. THE SONS AND THIS NURSE EXPLAINED TO THE THAT WE JUST WANTED WHAT WAS BEST FOR THE PT AND FELI MCNEILL TOLD THAT HE KNEW THAT HIS MOTHER WOULD NOT WANT TO BE ON A BREATHING MACHINE. STATED AGAIN RIGHT NOW HE WANTS EVERYTHING DONE FOR HIS . PT HAS DECLINED SINCE YESTERDAY. MORE LETHARGIC AND LESS RESPONSIVE TODAY. PICC PLACED TO THE E THIS MORNING. STILL UNABLE TO OBTAIN DOPPLER PULSES TO THE RLE. RLE/LLE WARM TO TOUCH. SCATTERED BRUISING NOTED TO BUE. BP WAS LOW THIS MORNING (CARDIZEM HELD PER MIKY HILL.) LUNG SOUND CLEAR. ABDOMEN SOFT/NON TENDER WITH ACTIVE BOWEL SOUNDS. PT HAS HAD 2 LOOSE/ BLACK/TARRY STOOLS THIS SHIFT. REPORT HANDOFF TO RIOS WATTS RN.
[2021-03-13 21:49] LABS: POC Glucose,Bedside 251 (70-110)
[2021-03-14] VITALS (12 sets, daily range): BP systolic 122–151; BP diastolic 60–84; PULSE 90–102; RESP 16–20; TEMP 36.4–37; O2SAT 95–98; BMI 35.0
[2021-03-14 06:31] LABS: POC Glucose,Bedside 160 (70-110)
--- NOTE | 2021-03-14 07:37 | HMH.ACPN2 ---
Internal Medicine - PN: Subj *Date: 03/14/21 *Time: 07:37 Interval history: Patient remains minimally interactive. She will answer yes or no questions this morning. She had no acute events overnight. Exam Vital signs and Labs for Last 24 Hours: Temp Pulse Resp BP Pulse Ox 98.6 F 99 H 16 122/61 98 03/14/21 04:12 03/14/21 04:12 03/14/21 04:12 03/14/21 04:12 03/14/21 04:12 Laboratory Results - last 24 hr 03/11/21 11:28: Blood Type Cancelled, Rho(D) Type Cancelled, Antibody Screen Cancelled, Crossmatch (AHG) See Detail 03/13/21 10:30: WBC 20.1 H*, RBC 2.72 L, Hgb 8.0 L, Hct 24.1 L, MCV 88.8, MCH 29.3, MCHC 33.1, RDW 17.2, Plt Count 237, MPV 8.6, Neut % (Auto) 89.9 H, Lymph % (Auto) 5.6 L, [place] % (Auto) 4.2, Eos % (Auto) 0.1, Baso % (Auto) 0.2, Neut # (Auto) 18.1 H, Lymph # (Auto) 1.1, [place] # (Auto) 0.9, Eos # (Auto) 0.0, Baso # (Auto) 0.0, Total Counted 100, Neutrophils % (Manual) 86 H, Lymphocytes % (Manual) 5 L, Monocytes % (Manual) 9, Platelet Estimate Normal, RBC Morphology Normal 03/13/21 10:30: Sodium 135 L, Potassium 2.8 L* D, Chloride 106, Carbon Dioxide 23 D, Anion Gap 8.8, BUN 53 H, Creatinine 1.40 H D, Estimated Creat Clear 44, Estimated GFR 36 L, Est GFR ( Amer) 43 L D, Glucose 200 H, Calcium 9.0 03/13/21 11:15: POC Glucose 244 H 03/13/21 16:59: POC Glucose 264 H 03/13/21 20:21: POC Glucose 251 H 03/14/21 05:50: POC Glucose 160 H I & O for Last 24 hours: Intake & Output 03/11/21 03/12/21 03/13/21 03/14/21 11:59 11:59 11:59 11:59 Intake Total 3210 / 3210 2785 / 2785 1560 / 1560 1335 / 1335 Output Total 150 / 150 175 / 175 450 / 450 800 / 800 Balance 3060 / 3060 2610 / 2610 1110 / 1110 535 / 535 Weight 205 lb 2 oz 200 lb 6 oz 201 lb 9 oz 210 lb 4 oz - Constitutional obese, somnolent - *Routine HEENT Exam ENT: Present: mucous membranes dry - *Routine Respiratory Exam Present: CTA bilaterally - *Routine Cardiovascular Exam Present: irregularly irregular - *Routine Abdominal Exam Present: soft, normoactive bowel sounds. Absent: tenderness - *Routine Extremities Exam Comments: Right lower extremity is warm to the touch with good capillary refill at the nailbeds of the toes. Right lower extremity is edematous. Assessment and Plan (1) Thrombosis of common femoral artery Status: Acute Category: Medical Code(s): I74.3 - Embolism and thrombosis of arteries of the lower extremities (2) Rhabdomyolysis Status: Acute Qualifiers: Rhabdomyolysis type: non-traumatic Qualified Code(s): M62.82 - Rhabdomyolysis Category: Medical Code(s): M62.82 - Rhabdomyolysis (3) Hypercalcemia Status: Resolved Category: Medical Code(s): E83.52 - Hypercalcemia (4) DJD (degenerative joint disease), lumbar Status: Acute Qualifiers: Spinal osteoarthritis complication: with myelopathy Qualified Code(s): M47.16 - Other spondylosis with myelopathy, lumbar region Category: Medical Code(s): M47.816 - Spondylosis without myelopathy or radiculopathy, lumbar region (5) Diabetes Status: Acute Qualifiers: Diabetes mellitus type: type 2 Diabetes mellitus nursing home insulin use: unspecified corporate recruiter insulin use status Diabetes mellitus complication status: with other specified complication Qualified Code(s): E11.69 - Type 2 diabetes mellitus with other specified complication Category: Medical Code(s): E11.9 - Type 2 diabetes mellitus without complications (6) A-fib Status: Chronic Qualifiers: Atrial fibrillation type: unspecified chronic Qualified Code(s): I48.20 - Chronic atrial fibrillation, unspecified Category: Medical Code(s): I48.91 - Unspecified atrial fibrillation (7) Lumbar spinal stenosis Status: Acute Qualifiers: Neurogenic claudication status: with neurogenic claudication Qualified Code(s): M48.062 - Spinal stenosis, lumbar region with neurogenic claudication Category: Medical Code(s): M48.061 - Spin
[2021-03-14 08:22] LABS: Basophils # 0.1 K/mm3 (0-0.2); Basophils % 0.2 % (0.1-2.0); Eosinophils # 0.1 K/mm3 (0.0-0.4); Eosinophils % 0.2 % (0.1-12.0); Hematocrit 30.8 % (37.0-47.0); Lymphocytes # 1.1 K/mm3 (0.7-4.5); Lymphocytes % 5.2 % (10-50); Mean Corpuscular HGB Conc 33.8 g/dL (31.8-35.4); Mean Corpuscular Hemoglobin 29.8 pg (27.0-31.2); Mean Platelet Volume 9.3 fl (7.4-10.4); Monocytes # 1.2 K/mm3 (0.1-1.0); Monocytes % 5.4 % (1.7-9.3); Neutrophils # 19.6 K/mm3 (1.8-7.8); Neutrophils % 88.9 % (37.0-80.0); Platelet Count 200 K/mm3 (142-424); Red Cell Distribution Width 17.7 % (11.5-17.5)
[2021-03-14 08:28] LABS: Hemoglobin 10.4 g/dL (12.2-16.2); MANUAL DIFFERENTIAL MANUAL DIFFERENTIAL (MANUAL DIFF)
[2021-03-14 09:28] LABS: Lymphocytes % 9 % (10-50); Monocytes % 5 % (2-9); Neutrophils % 86 % (42-76); Platelet Estimate Normal; RBC Morphology Normal; Total Cells Counted 100
--- NOTE | 2021-03-14 10:38 | HMH.SLDYSPHA ---
Speech & Language Evaluation Speech/Language Dysphagia Evaluation Start: 03/14/21 10:30 Freq: ONCE Status: Active Protocol: Document 03/14/21 10:30 TREVOR (Rec: 03/14/21 10:38 TREVOR [id number]) Dysphagia Assess/Goals/Plan Assessment Date of Evaluation: 03/14/21 Evaluation Type Initial Certification Assessment/Problems Dysphagia Does Patient Qualify for Service No Qualify/Failure Comment Patient not alert and oriented enough to participate in therapy. Recommendations PHYSICIAN CERTIFICATION: The specified therapy services are required, authorized, and reviewed every 30 days. Diet Recommendations NPO Plan Pt/Guardian verbally ack understanding Yes: RN and CM notified of dx/prognosis/goals G -code Required No Speech & Language HPI Language Primary Language Kyrgyz General Information General Current Food Consistancy NPO Dentition Upper & Lower Dentures Oxygen Status Nasal Cannula Patient Orientation Person Ability to Follow Directions Poor Communication Ability Severe Impairment Dysphagia:Food Presentation Evaluation Food Type Pureed,Liquid Honey Consistency Liquid Response Falls out of mouth,Pocketing, Multiple swallow attempts, Residual on tongue,Delayed swallow Dysphagia Evaluation Pureed Food Falls out of mouth,Pocketing, Behavior Response Multiple swallow attempts, Residual on tongue,Delayed swallow Dysphagia Evaluation Summary Patient was oriented to first name only. She did answer yes/ no questions to self: Are you hungry? Are you thirsty? Do you want more? . She was given 1 trial of honey thick liquids where it was noted that she pockets bolus on right side, the bolus fell out of her mouth, she exhibited delayed swallow reflex along with multiple swallow attempts with residual on tongue. She refused any more honey thick liquid trials. She exhibited the same responses when given 1 pureed trial. She refused any additional trials. When asked if she wanted to be left
[2021-03-14 11:46] LABS: POC Glucose,Bedside 225 (70-110)
[2021-03-14 12:00] LABS: Anion Gap 6.4 mEq/L (5-15); Blood Urea Nitrogen 41 mg/dl (7-17); Carbon Dioxide 24 mmol/L (22.0-30.0); Chloride 110 mmol/L (98-107); Creatinine Clearance Estimated 64 mL/min (50-200); Estimated Glomerular Filt Rate 53 ml/min (>60); GFR (African American) 64 ML/MIN (>60); Glucose 154 mg/dl (74-100); Potassium 3.4 mmoL/L (3.5-5.1); Sodium 137 mmol/L (136-145)
--- NOTE | 2021-03-14 13:10 | PC.NURSE ---
Per Mr San request, pt is a DNR. Paper signed by San and placed on chart. DNR bracelet placed on patient. `
--- NOTE | 2021-03-14 16:09 | PC.NURSE ---
PATIENT WILL MUMBLE WHEN ADDRESSED BY NAME, LUNGS ARE DIMINISHED, PULSES: RIGHT PEDAL IS WEAKER THAN LEFT PEDAL. SEVERAL BRUISES NOTED THROUGHOUT THE UPPER EXTREMITIES WELL THE RIGHT THIGH. PATIENT WAS ABLE TO EAT APPLESAUCE ALONG WITH SIPS OF WATER DURING THIS RN SHIFT. NO NEW CONCERNS OR NEEDS AT THIS TIME.
[2021-03-14 16:14] LABS: POC Glucose,Bedside 259 (70-110)
[2021-03-14 21:12] LABS: POC Glucose,Bedside 230 (70-110)
[2021-03-15] VITALS (9 sets, daily range): BP systolic 135–186; BP diastolic 73–91; PULSE 80–100; RESP 15–18; TEMP 36.6–37.3; O2SAT 95–98; BMI 35.0
--- NOTE | 2021-03-15 04:25 | PC.NURSE ---
pt stated pain and prn med given. picc in place and infusing per order. vss. call light in reach. will continue to monitor
[2021-03-15 06:30] LABS: Basophils # 0.1 K/mm3 (0-0.2); Basophils % 0.4 % (0.1-2.0); Eosinophils # 0.1 K/mm3 (0.0-0.4); Eosinophils % 0.6 % (0.1-12.0); Hematocrit 30.3 % (37.0-47.0); Hemoglobin 10.3 g/dL (12.2-16.2); Lymphocytes # 1.2 K/mm3 (0.7-4.5); Lymphocytes % 5.6 % (10-50); Mean Corpuscular HGB Conc 33.8 g/dL (31.8-35.4); Mean Corpuscular Hemoglobin 29.8 pg (27.0-31.2); Mean Corpuscular Volume 88.2 fl (81-99); Mean Platelet Volume 8.1 fl (7.4-10.4); Monocytes # 1.5 K/mm3 (0.1-1.0); Monocytes % 6.9 % (1.7-9.3); Neutrophils # 18.7 K/mm3 (1.8-7.8); Neutrophils % 86.4 % (37.0-80.0); Platelet Count 214 K/mm3 (142-424); Red Blood Count 3.44 M/mm3 (4.20-5.40); White Blood Count 21.6 K/mm3 (4.8-10.8)
[2021-03-15 06:30] LABS: POC Glucose,Bedside 236 (70-110)
[2021-03-15 06:34] LABS: Anion Gap 4.9 mEq/L (5-15); Blood Urea Nitrogen 26 mg/dl (7-17); Calcium 9.3 mg/dl (8.4-10.2); Carbon Dioxide 25 mmol/L (22.0-30.0); Chloride 111 mmol/L (98-107); Creatinine Clearance Estimated 64 mL/min (50-200); Estimated Glomerular Filt Rate 80 ml/min (>60); GFR (African American) 97 ML/MIN (>60); Glucose 227 mg/dl (74-100); Potassium 3.9 mmoL/L (3.5-5.1); Sodium 137 mmol/L (136-145)
[2021-03-15 07:11] LABS: MANUAL DIFFERENTIAL MANUAL DIFFERENTIAL (MANUAL DIFF)
--- NOTE | 2021-03-15 07:19 | HMH.ACPN2 ---
Internal Medicine - PN: Subj *Date: 03/15/21 *Time: 07:19 Interval history: No acute events overnight. Patient is more awake this morning. She remembers she is in the hospital but does not recall why. She admits she is hungry Exam Vital signs and Labs for Last 24 Hours: Temp Pulse Resp BP Pulse Ox 98.4 F 91 H 15 150/91 H 96 03/15/21 04:00 03/15/21 04:00 03/15/21 04:00 03/15/21 04:00 03/15/21 04:00 Laboratory Results - last 24 hr 03/14/21 06:20: WBC 22.0 H*, RBC 3.50 L D, Hgb 10.4 L D, Hct 30.8 L, MCV 88.0, MCH 29.8, MCHC 33.8, RDW 17.7 H, Plt Count 200, MPV 9.3, Neut % (Auto) 88.9 H, Lymph % (Auto) 5.2 L, [place] % (Auto) 5.4, Eos % (Auto) 0.2, Baso % (Auto) 0.2, Neut # (Auto) 19.6 H, Lymph # (Auto) 1.1, [place] # (Auto) 1.2 H, Eos # (Auto) 0.1, Baso # (Auto) 0.1, Total Counted 100, Neutrophils % (Manual) 86 H, Lymphocytes % (Manual) 9 L, Monocytes % (Manual) 5, Platelet Estimate Normal, RBC Morphology Normal 03/14/21 06:20: Sodium 137, Potassium 3.4 L D, Chloride 110 H, Carbon Dioxide 24, Anion Gap 6.4, BUN 41 H, Creatinine 1.00 D, Estimated Creat Clear 64, Estimated GFR 53 L, Est GFR ( Amer) 64 D, Glucose 154 H D, Calcium 9.0 03/14/21 11:14: POC Glucose 225 H 03/14/21 16:01: POC Glucose 259 H 03/14/21 19:56: POC Glucose 230 H 03/15/21 06:00: WBC 21.6 H*, RBC 3.44 L, Hgb 10.3 L, Hct 30.3 L, MCV 88.2, MCH 29.8, MCHC 33.8, RDW 18.0 H, Plt Count 214, MPV 8.1, Neut % (Auto) 86.4 H, Lymph % (Auto) 5.6 L, [place] % (Auto) 6.9, Eos % (Auto) 0.6, Baso % (Auto) 0.4, Neut # (Auto) 18.7 H, Lymph # (Auto) 1.2, [place] # (Auto) 1.5 H, Eos # (Auto) 0.1, Baso # (Auto) 0.1 03/15/21 06:00: Sodium 137, Potassium 3.9, Chloride 111 H, Carbon Dioxide 25, Anion Gap 4.9 L, BUN 26 H D, Creatinine 0.70 D, Estimated Creat Clear 64, Estimated GFR 80, Est GFR ( Amer) 97 D, Glucose 227 H D, Calcium 9.3 03/15/21 06:11: POC Glucose 236 H I & O for Last 24 hours: Intake & Output 03/12/21 03/13/21 03/14/21 03/15/21 11:59 11:59 11:59 11:59 Intake Total 2785 / 2785 1560 / 1560 1335 / 1335 3402 / 3402 Output Total 175 / 175 450 / 450 800 / 800 650 / 650 Balance 2610 / 2610 1110 / 1110 535 / 535 2752 / 2752 Weight 200 lb 6 oz 201 lb 9 oz 210 lb 4 oz 210 lb 6 oz Narrative: Patient is able to answer questions and speak in sentences. Oropharynx is dry. Lungs are clear but distant at the bases. Heart rate is irregular. Abdomen is obese. Right leg remains edematous and patient is having difficulty moving the leg. Assessment and Plan (1) Staphylococcus hominis sepsis Status: Acute Category: Medical Code(s): A41.1 - Sepsis due to other specified staphylococcus (2) Thrombosis of common femoral artery Status: Acute Category: Medical Code(s): I74.3 - Embolism and thrombosis of arteries of the lower extremities (3) Rhabdomyolysis Status: Resolved Qualifiers: Rhabdomyolysis type: non-traumatic Qualified Code(s): M62.82 - Rhabdomyolysis Category: Medical Code(s): M62.82 - Rhabdomyolysis (4) Hypercalcemia Status: Resolved Category: Medical Code(s): E83.52 - Hypercalcemia (5) DJD (degenerative joint disease), lumbar Status: Acute Qualifiers: Spinal osteoarthritis complication: with myelopathy Qualified Code(s): M47.16 - Other spondylosis with myelopathy, lumbar region Category: Medical Code(s): M47.816 - Spondylosis without myelopathy or radiculopathy, lumbar region (6) Diabetes Status: Acute Qualifiers: Diabetes mellitus type: type 2 Diabetes mellitus skilled nursing insulin use: unspecified skilled nursing insulin use status Diabetes mellitus complication status: with other specified complication Qualified Code(s): E11.69 - Type 2 diabetes mellitus with other specified complication Category: Medical Code(s): E11.9 - Type 2 diabetes mellitus without complications (7) A-fib Status: Chronic Qualifiers: Atrial fibrillation type: unspecified chronic Qualified Code(s): I4
[2021-03-15 08:52] LABS: Eosinophils % 2 % (0-3); Lymphocytes % 16 % (10-50); Monocytes % 4 % (2-9); Neutrophils % 78 % (42-76); Platelet Estimate Normal; RBC Morphology Normal; Total Cells Counted 100
--- NOTE | 2021-03-15 10:31 | HMH.ACPN ---
Internal Medicine - PN: Subj *Date: 03/15/21 *Time: 10:31 Exam Vital signs and Labs for Last 24 Hours: Temp Pulse Resp BP Pulse Ox 98.0 F 95 H 16 135/73 95 03/15/21 07:49 03/15/21 08:00 03/15/21 07:49 03/15/21 07:49 03/15/21 08:00 Laboratory Results - last 24 hr 03/14/21 06:20: Sodium 137, Potassium 3.4 L D, Chloride 110 H, Carbon Dioxide 24, Anion Gap 6.4, BUN 41 H, Creatinine 1.00 D, Estimated Creat Clear 64, Estimated GFR 53 L, Est GFR ( Amer) 64 D, Glucose 154 H D, Calcium 9.0 03/14/21 11:14: POC Glucose 225 H 03/14/21 16:01: POC Glucose 259 H 03/14/21 19:56: POC Glucose 230 H 03/15/21 06:00: WBC 21.6 H*, RBC 3.44 L, Hgb 10.3 L, Hct 30.3 L, MCV 88.2, MCH 29.8, MCHC 33.8, RDW 18.0 H, Plt Count 214, MPV 8.1, Neut % (Auto) 86.4 H, Lymph % (Auto) 5.6 L, [place] % (Auto) 6.9, Eos % (Auto) 0.6, Baso % (Auto) 0.4, Neut # (Auto) 18.7 H, Lymph # (Auto) 1.2, [place] # (Auto) 1.5 H, Eos # (Auto) 0.1, Baso # (Auto) 0.1, Total Counted 100, Neutrophils % (Manual) 78 H, Lymphocytes % (Manual) 16, Monocytes % (Manual) 4, Eosinophils % (Manual) 2, Platelet Estimate Normal, RBC Morphology Normal 03/15/21 06:00: Sodium 137, Potassium 3.9, Chloride 111 H, Carbon Dioxide 25, Anion Gap 4.9 L, BUN 26 H D, Creatinine 0.70 D, Estimated Creat Clear 64, Estimated GFR 80, Est GFR ( Amer) 97 D, Glucose 227 H D, Calcium 9.3 03/15/21 06:11: POC Glucose 236 H I & O for Last 24 hours: Intake & Output 03/12/21 03/13/21 03/14/21 03/15/21 23:59 23:59 23:59 23:59 Intake Total 3110 / 3110 1395 / 1395 3402 / 3402 Output Total 325 / 625 800 / 800 750 / 750 200 / 200 Balance 2785 / 2485 595 / 595 -750 / -750 3202 / 3202 Weight 90.889 kg 91.427 kg 95.368 kg 95.424 kg Assessment and Plan (1) Staphylococcus hominis sepsis Status: Acute Category: Medical Code(s): A41.1 - Sepsis due to other specified staphylococcus (2) Thrombosis of common femoral artery Status: Acute Category: Medical Code(s): I74.3 - Embolism and thrombosis of arteries of the lower extremities (3) Rhabdomyolysis Status: Resolved Qualifiers: Rhabdomyolysis type: non-traumatic Qualified Code(s): M62.82 - Rhabdomyolysis Category: Medical Code(s): M62.82 - Rhabdomyolysis (4) Hypercalcemia Status: Resolved Category: Medical Code(s): E83.52 - Hypercalcemia (5) DJD (degenerative joint disease), lumbar Status: Acute Qualifiers: Spinal osteoarthritis complication: with myelopathy Qualified Code(s): M47.16 - Other spondylosis with myelopathy, lumbar region Category: Medical Code(s): M47.816 - Spondylosis without myelopathy or radiculopathy, lumbar region (6) Diabetes Status: Acute Qualifiers: Diabetes mellitus type: type 2 Diabetes mellitus joint terminal attack controller insulin use: unspecified skilled nursing insulin use status Diabetes mellitus complication status: with other specified complication Qualified Code(s): E11.69 - Type 2 diabetes mellitus with other specified complication Category: Medical Code(s): E11.9 - Type 2 diabetes mellitus without complications (7) A-fib Status: Chronic Qualifiers: Atrial fibrillation type: unspecified chronic Qualified Code(s): I48.20 - Chronic atrial fibrillation, unspecified Category: Medical Code(s): I48.91 - Unspecified atrial fibrillation (8) Lumbar spinal stenosis Status: Acute Qualifiers: Neurogenic claudication status: with neurogenic claudication Qualified Code(s): M48.062 - Spinal stenosis, lumbar region with neurogenic claudication Category: Medical Code(s): M48.061 - Spinal stenosis, lumbar region without neurogenic claudication (9) Fall Status: Acute Qualifiers: Encounter type: initial encounter Qualified Code(s): W19.XXXA - Unspecified fall, initial encounter Category: Medical Code(s): W19.XXXA - Unspecified fall, initial encounter (10) Acute kidney injury (nontraumatic) Status: Resolved Category: Medical C
[2021-03-15 12:26] LABS: POC Glucose,Bedside 239 (70-110)
[2021-03-15 17:16] LABS: POC Glucose,Bedside 286 (70-110)
[2021-03-15 21:41] LABS: POC Glucose,Bedside 222 (70-110)
--- NOTE | 2021-03-15 22:49 | PC.NURSE ---
She is alert to person, place, and name but not the year. She has a Kpad on her back. Right limb alert r/t PICC. Large purple bruise on right thigh. RLE is warm to touch with non-pitting edema. She has received PRN pain medication for hip/leg pain. Her right foot is normal in color but unable to doppler pulse. Capillary refill <3. F/c patent with dark yellow, clear urine. She continues in contact precautions. Glucose was 222 at bedtime.
[2021-03-16] VITALS: PULSE 90
[2021-03-16 03:35] VITALS: BP 157/68; PULSE 99; RESP 15; TEMP 36.4; O2SAT 93
[2021-03-16 04:00] VITALS: PULSE 100
[2021-03-16 04:43] VITALS: BMI 34.4
[2021-03-16 05:12] LABS: POC Glucose,Bedside 203 (70-110)
--- NOTE | 2021-03-16 07:54 | HMH.ACPN2 ---
Internal Medicine - PN: Subj *Date: 03/16/21 *Time: 07:54 Interval history: Patient continues to become more awake and alert. She was out of bed to chair yesterday. She reports pain in the right leg that has been a constant complaint during hospitalization. Exam Vital signs and Labs for Last 24 Hours: Temp Pulse Resp BP Pulse Ox 97.6 F 100 H 15 157/68 H 93 L 03/16/21 03:35 03/16/21 04:00 03/16/21 03:35 03/16/21 03:35 03/16/21 03:35 Laboratory Results - last 24 hr 03/15/21 06:00: Total Counted 100, Neutrophils % (Manual) 78 H, Lymphocytes % (Manual) 16, Monocytes % (Manual) 4, Eosinophils % (Manual) 2, Platelet Estimate Normal, RBC Morphology Normal 03/15/21 12:13: POC Glucose 239 H 03/15/21 17:07: POC Glucose 286 H 03/15/21 20:44: POC Glucose 222 H 03/16/21 03:50: POC Glucose 203 H I & O for Last 24 hours: Intake & Output 03/13/21 03/14/21 03/15/21 03/16/21 11:59 11:59 11:59 11:59 Intake Total 1560 / 1560 1335 / 1335 3402 / 3402 2112 / 2112 Output Total 450 / 450 800 / 800 650 / 650 950 / 950 Balance 1110 / 1110 535 / 535 2752 / 2752 1162 / 1162 Weight 201 lb 9 oz 210 lb 4 oz 210 lb 6 oz 207 lb 3 oz Narrative: Patient appears comfortable laying on her right side. Lungs are clear. Heart is irregularly irregular. The right lower extremity is warm to the touch. There is swelling and edema of the right lower extremity with bruising in the posterior thigh. Patient also has edema of the upper extremities. Assessment and Plan (1) Staphylococcus hominis sepsis Status: Acute Category: Medical Code(s): A41.1 - Sepsis due to other specified staphylococcus (2) Thrombosis of common femoral artery Status: Acute Category: Medical Code(s): I74.3 - Embolism and thrombosis of arteries of the lower extremities (3) Rhabdomyolysis Status: Resolved Qualifiers: Rhabdomyolysis type: non-traumatic Qualified Code(s): M62.82 - Rhabdomyolysis Category: Medical Code(s): M62.82 - Rhabdomyolysis (4) Hypercalcemia Status: Resolved Category: Medical Code(s): E83.52 - Hypercalcemia (5) DJD (degenerative joint disease), lumbar Status: Acute Qualifiers: Spinal osteoarthritis complication: with myelopathy Qualified Code(s): M47.16 - Other spondylosis with myelopathy, lumbar region Category: Medical Code(s): M47.816 - Spondylosis without myelopathy or radiculopathy, lumbar region (6) Diabetes Status: Acute Qualifiers: Diabetes mellitus type: type 2 Diabetes mellitus assisted insulin use: unspecified long line teamster insulin use status Diabetes mellitus complication status: with other specified complication Qualified Code(s): E11.69 - Type 2 diabetes mellitus with other specified complication Category: Medical Code(s): E11.9 - Type 2 diabetes mellitus without complications (7) A-fib Status: Chronic Qualifiers: Atrial fibrillation type: unspecified chronic Qualified Code(s): I48.20 - Chronic atrial fibrillation, unspecified Category: Medical Code(s): I48.91 - Unspecified atrial fibrillation (8) Lumbar spinal stenosis Status: Acute Qualifiers: Neurogenic claudication status: with neurogenic claudication Qualified Code(s): M48.062 - Spinal stenosis, lumbar region with neurogenic claudication Category: Medical Code(s): M48.061 - Spinal stenosis, lumbar region without neurogenic claudication (9) Fall Status: Acute Qualifiers: Encounter type: initial encounter Qualified Code(s): W19.XXXA - Unspecified fall, initial encounter Category: Medical Code(s): W19.XXXA - Unspecified fall, initial encounter (10) Acute kidney injury (nontraumatic) Status: Resolved Category: Medical Code(s): N17.9 - Acute kidney failure, unspecified - Assessment and plan all Dx Assessment and Plan for all problems:: 1. Awaiting repeat blood cultures from 48 hours ago. 2. Patient's IV fluids will be discontinued his bloo
--- NOTE | 2021-03-16 07:57 | HMH.DCSUM ---
General - General Admission date:: 03/10/21 Discharge date: 03/16/21 HPI HPI: 85-year-old female was brought to the emergency department via EMS after paramedics were called to the patient's home and both she and her were found in the floor. Patient herself cannot give any details about the events of yesterday that led to her arrival at the emergency department other than when she was trying to get out of bed she slid down the bed. She denies significant injury but once again her memory is questionable. Patient came to the ER and underwent evaluation. In the ER she complained of back and right leg pain which she confirms this morning. Patient was admitted for mild rhabdomyolysis and hypercalcemia. Patient had no acute kidney injury. Urinalysis was markedly abnormal with blood and ketones. Significant review of systems: Chronic joint pains leading to minimal ambulation with primary mode of transportation being wheelchair. Chronic anxiety. Hospital Course Hospital Course: Patient was admitted with a diagnosis of rhabdomyolysis and hypercalcemia. Both were treated with IV fluids and elevated calcium responded within 24 hours to IV fluid infusion. Patient's mental status was different than baseline and ability to provide quality history was in doubt. As the first day of admission progressed patient continued to complain of right leg pain. Nursing staff assessed that the right leg felt cool to the touch and an arterial Doppler confirmed the presence of a common femoral clot. Dr. Melendez was consulted and patient was taken to the [facility] for thrombectomy with subsequent stenting and patient was placed on aspirin, Plavix. Patient has a history of atrial fibrillation and warfarin was discontinued in favor of Xarelto. Regarding her common femoral arterial thrombosis patient continued to complain of right leg pain after her procedure although as hospitalization progressed and patient's mental status improved patient did display ability to move the limb. Bulimia did remain edematous after reperfusion with bruising developing in the posterior thigh. At discharge function of the right lower extremity had improved. Adjustments had to be made to her dual antiplatelet therapy and anticoagulants due to bleeding. At discharge patient will be on Plavix and Xarelto. Patient became septic on the evening of the the morning of March 10. Patient was started on broad-spectrum antibiotics with blood cultures suspicious for staphylococcal infection. While MRSA did not grow all blood cultures performed on admission did reveal staph hominis. Patient was initially placed on vancomycin but due to acute kidney injury this was changed to linezolid and once cultures grew staph hominis sensitive to clindamycin patient was placed on clindamycin. On March 14 repeat blood culture was drawn. Patient developed acute kidney injury from sepsis. She was given fluid boluses of normal saline and continued on IV fluids during the remainder of hospitalization. Initially she was placed on normal saline to maintain adequate blood pressure. When patient was unable to tolerate solids or liquids she was later placed on D5 half-normal with potassium. Creatinine peaked at 2 and on the day prior to discharge was 0.7. Patient developed edema in the right lower extremity from reperfusion but also developed edema in the upper extremities from the large volume of fluid she received during hospitalization. On March 16 the IV fluids were discontinued and patient was given a single dose of Lasix 40 mg IV. Due to acute kidney injury and to assess volume status a Mcneal catheter was inserted on admission. Patient's urine remained dark during the entirety of the hospitalization despite adequate fluid resuscitation. Urine was negative for culture. Patient has diabetes mellitus and her diabetes was treated with sliding scale insulin during hospitalization. Patient has history of at
[2021-03-16 07:59] VITALS: BP 155/97; PULSE 99; RESP 20; TEMP 36.4; O2SAT 97
[2021-03-16 08:00] VITALS: PULSE 99; O2SAT 97
[2021-03-16 11:50] LABS: Basophils # 0.1 K/mm3 (0-0.2); Basophils % 0.5 % (0.1-2.0); Eosinophils # 0.3 K/mm3 (0.0-0.4); Eosinophils % 1.1 % (0.1-12.0); Hematocrit 30.1 % (37.0-47.0); Hemoglobin 10.2 g/dL (12.2-16.2); Lymphocytes # 1.7 K/mm3 (0.7-4.5); Lymphocytes % 6.5 % (10-50); Mean Corpuscular HGB Conc 33.8 g/dL (31.8-35.4); Mean Corpuscular Hemoglobin 30.6 pg (27.0-31.2); Mean Corpuscular Volume 90.5 fl (81-99); Monocytes # 1.3 K/mm3 (0.1-1.0); Monocytes % 4.9 % (1.7-9.3); Neutrophils # 22.9 K/mm3 (1.8-7.8); Neutrophils % 86.9 % (37.0-80.0); Platelet Count 248 K/mm3 (142-424); Red Blood Count 3.33 M/mm3 (4.20-5.40); Red Cell Distribution Width 18.2 % (11.5-17.5); White Blood Count 26.3 K/mm3 (4.8-10.8)
[2021-03-16 11:53] LABS: MANUAL DIFFERENTIAL MANUAL DIFFERENTIAL (MANUAL DIFF)
[2021-03-16 12:05] LABS: Chloride 106 mmol/L (98-107); Potassium 3.7 mmoL/L (3.5-5.1); Sodium 133 mmol/L (136-145)
[2021-03-16 12:08] LABS: Anion Gap 5.7 mEq/L (5-15); Blood Urea Nitrogen 17 mg/dl (7-17); Calcium 9.3 mg/dl (8.4-10.2); Carbon Dioxide 25 mmol/L (22.0-30.0); Creatinine Clearance Estimated 63 mL/min (50-200); Estimated Glomerular Filt Rate 95 ml/min (>60); GFR (African American) 116 ML/MIN (>60); Glucose 212 mg/dl (74-100)
[2021-03-16 12:31] LABS: Eosinophils % 1 % (0-3); Lymphocytes % 5 % (10-50); Monocytes % 3 % (2-9); Neutrophils % 88 % (42-76); Platelet Estimate Normal; RBC Morphology Normal; Total Cells Counted 100
[2021-03-16 14:31] LABS: Adenovirus F 40/41, stool Not Detected (NotDetected); Astrovirus Not Detected (NotDetected); Campylobacter Not Detected (NotDetected); Clostridium Difficile A/B, PCR Not Detected (NotDetected); Cryptosporidium Not Detected (NotDetected); Cyclospora Cayetanesis Not Detected (NotDetected); Entamoeba histolytica Not Detected (NotDetected); Enteroaggregative E coli Not Detected (NotDetected); Enteropathogenic E coli Not Detected (NotDetected); Enterotoxigenic E coli Not Detected (NotDetected); Giardia lamblia Not Detected (NotDetected); Norovirus Not Detected (NotDetected); Plesimonas Shigalloides, PCR Not Detected (NotDetected); Rotavirus A Not Detected (NotDetected); Salmonella, PCR Not Detected (NotDetected); Sapovirus Not Detected (NotDetected); Shiga-like toxin E coli Not Detected (NotDetected); Shigella Enterovasive E coli Not Detected (NotDetected); Vibrio Cholerae Not Detected (NotDetected); Vibrio, PCR Not Detected (NotDetected); Yersinia Entercolitica, PCR Not Detected (NotDetected)
--- NOTE | 2021-03-16 15:51 | PC.NURSE ---
report called to tiffanie at this time
[2021-03-16 17:21] LABS: POC Glucose,Bedside 216 (70-110)
[2021-03-16 21:38] LABS: POC Glucose,Bedside 192 (70-110)
== END 2021-03-16 17:56 | DRG 270 ==
LOC: ER 22:00 → 2ND 03-09 02:00
PROVIDERS: Family Medicine; Internal Medicine; Admitting Provider Internal Medicine Adolescent Medicine; Emergency Provider Emergency Medicine; PCP Family Medicine; Visit Provider Family Medicine
PROC: 047K36Z Dilation of Right Femoral Artery with Three Drug-eluting Intraluminal Devices, Percutaneous Approach (ICD-10-PCS; principal; 2021-03-09 14:15)
DX: I74.3 Embolism and thrombosis of arteries of the lower extremities (principal); A41.1 Sepsis due to other specified staphylococcus; M62.82 Rhabdomyolysis; I48.20 Chronic atrial fibrillation, unspecified; M47.16 Other spondylosis with myelopathy, lumbar region; N17.9 Acute kidney failure, unspecified; E83.52 Hypercalcemia; R79.1 Abnormal coagulation profile; W01.0XXA Fall on same level from slipping, tripping and stumbling without subsequent striking against object, initial encounter; Z79.01 Long term (current) use of anticoagulants; M48.061 Spinal stenosis, lumbar region without neurogenic claudication; E78.5 Hyperlipidemia, unspecified; I11.0 Hypertensive heart disease with heart failure; I50.9 Heart failure, unspecified; Z66 Do not resuscitate; E11.51 Type 2 diabetes mellitus with diabetic peripheral angiopathy without gangrene; R60.9 Edema, unspecified; D64.9 Anemia, unspecified; I77.1 Stricture of artery; Z79.84 Long term (current) use of oral hypoglycemic drugs
CPT/HCPCS: 36415; 36569; 37184; 37185; 37226; 70450; 71045; 72125; 72131; 72170; 73700; 80048; 80053; 81001; 82272; 82306; 82550; 82553; 82962; 83036; 83605; 83735; 83970; 84145; 84436; 84443; 84484; 85007; 85014; 85018; 85025; 85347; 85610; 85651; 85730; 86140; 86850; 87040; 87077; 87086; 87186; 87506; 87507; 92526; 92610; 93005; 93306; 93926; 96366; 96375; 97163; 97530; 99152; 99153; 99284; C1725; C1751; C1757; C1760; C1766; C1769; C1776; C1876; C1894; G0328; G0378; J0692; J1644; J2020; J2405; J3370; P9016; Q9966; U0003

== ENCOUNTER 2021-03-19 09:15 | Emergency (ER) | payer MEDICARE, MEDICAID, SELFPAY ==
[2021-03-19] VITALS (10 sets, daily range): BP systolic 93–161; BP diastolic 65–85; PULSE 94–103; RESP 14–21; TEMP 36.9; O2SAT 96–98; BMI 33.9
--- NOTE | 2021-03-19 09:14 | ECG_ITS ---
APPROVED REPORT Exam: Resting ECG HR:97 bpm ECG Measurements Heart Rate 97 AXES QRSd 106 QRS 112 QT 366 T -48 QTc 464 Conclusion Undetermined rhythm Right axis deviation Incomplete right bundle branch block Possible Right ventricular hypertrophy Septal infarct, age undetermined T wave abnormality, consider anterior ischemia Abnormal ECG Electronically signed by : Yahir Patrick, 03/20/2021 18:14:20
--- NOTE | 2021-03-19 09:23 | HMH.EDGENADL ---
ED Disposition Clinical Impression: Leg edema, right Altered mental status Qualifiers: Altered mental status type: somnolence Qualified Code(s): R40.0 - Somnolence Disposition: Home, Self-Care Condition on Discharge: Good Instructions: DI for Altered Mental Status Additional Instructions: Follow-up with attending provider for further problems. Referrals: Provider,Referral, [Referring] - - Critical Care Critical Care Time: No Attestation: On , the high probability of a clinically significant, sudden or life threatening deterioration of the following system(s) required my full and direct attention, intervention and personal management. The time I documented below is in addition to time spent performing reported procedures but includes the following listed in this critical care notation. Medical Decision Making - Medical Records Medical records reviewed: Yes: I reviewed the patient's medical records. MR Comment: Discharge summary reviewed admission 03/10/2021 through 03/16/2021. It does not appear diazepam was administered on that admission. There is an order for midazolam IM related to her thrombectomy on 03/09/2021. - Eddie Inquiry Pt receiving controlled substance: No Vital Signs: 03/19/21 09:16 03/19/21 09:41 03/19/21 10:22 Temperature 98.4 F Temperature Source Rectal Pulse Rate 97 H 101 H Pulse Rate [Apical] 95 H Respiratory Rate 14 20 21 Blood Pressure 137/65 151/78 H Blood Pressure [Left Arm] 161/85 H Blood Pressure Mean 89 97 Blood Pressure Mean [Left Arm] 110 Blood Pressure Source Automatic Cuff Blood Pressure Source [Left Arm] Automatic Cuff Blood Pressure Position [Left Arm] Sitting 02 Sat by Pulse Oximetry 96 96 97 Oxygen Delivery Method Room Air Room Air 03/19/21 10:30 Temperature Temperature Source Pulse Rate 100 H Pulse Rate [Apical] Respiratory Rate 19 Blood Pressure 146/74 H Blood Pressure [Left Arm] Blood Pressure Mean 101 Blood Pressure Mean [Left Arm] Blood Pressure Source Blood Pressure Source [Left Arm] Blood Pressure Position [Left Arm] 02 Sat by Pulse Oximetry Oxygen Delivery Method - Lab Data Lab Results 03/19/21 09:15: Urine Color Yellow, Urine Appearance Clear, Urine pH 6.0, Ur Specific [place] >= 1.030, Urine Protein 1+, Urine Glucose (UA) 2+, Urine Ketones Negative, Urine Blood 3+, Urine Nitrate Negative, Urine Bilirubin Negative, Urine Urobilinogen 0.2, Ur Leukocyte Esterase Negative, Urine RBC 20-50, Urine WBC 3-5, Ur Squamous Epith Cells 3-5, Urine Bacteria None 03/19/21 09:15: Urine Opiates Screen Positive H, Urine Methadone Screen Negative, Ur Barbituates Screen Negative, Ur Phencyclidine Scrn Negative, Ur Amphetamines Screen Negative, U Benzodiazepines Scrn Positive H, Urine Cocaine Screen Negative, U Marijuana (THC) Screen Negative 03/19/21 09:19: Chlamy pneumoniae PCR Not detected, Adenovirus (PCR) Not detected, B. pertussis DNA (PCR) Not detected, Coronavirus OC43 (PCR) Not detected, Coronavirus HKU1 (PCR) Not detected, Coronavirus 229E (PCR) Not detected, SARS-CoV-2 (PCR) Not detected, Coronavirus NL63 (PCR) Not detected, Human Metapneumovir PCR Not detected, Influenza A (H1) PCR Not detected, Influ A (H1N1/09) PCR Not detected, Influenza A (H3) PCR Not detected, Influenza Type A (PCR) Not detected, Influenza Type B (PCR) Not detected, M. pneumoniae (PCR) Not detected, Parainfluenza 1 (PCR) Not detected, Parainfluenza 2 (PCR) Not detected, Parainfluenza 3 (PCR) Not detected, Parainfluenza 4 (PCR) Not detected, RSV (PCR) Not detected, Entero/Rhino (PCR) Not detected 03/19/21 09:25: Total Creatine Kinase 938 H*, CK-MB (CK-2) 1.9 D, CK-MB (CK-2) Rel Index 0.2, Troponin I < 0.01 03/19/21 09:25: Sodium 133 L, Potassium 3.7, Chloride 104, Carbon Dioxide 28, Anion Gap 4.7 L, BUN 9 D, Creatinine 0.60, Estimated Creat Clear 64, Estimated GFR 95, Est GFR ( Amer) 116, Glucose 143 H, Calcium 9.2, Total Bilirubin 1.0, AST 63 H, ALT 85 H, Al
--- NOTE | 2021-03-19 09:27 | CT_ITS ---
PROCEDURE INFORMATION: Exam: CT Head Without Contrast Exam date and time: 03/19/2021 9:27 AM Age: 85 years old Clinical indication: Altered mental status/memory loss; Additional info: AMS TECHNIQUE: Imaging protocol: Computed tomography of the head without contrast. Radiation optimization: All CT scans at this facility use at least one of these dose optimization techniques: automated exposure control; mA and/or kV adjustment per patient size (includes targeted exams where dose is matched to clinical indication); or iterative reconstruction. COMPARISON: CT HEAD/BRAIN WO CON 03/08/2021 9:35 PM FINDINGS: Brain: There is moderate diffuse heterogeneity of the white matter attenuation, consistent with chronic white matter ischemic changes. Moderate cerebral atrophy No acute intracranial hemorrhage.. Cerebral ventricles: No ventriculomegaly. Bones/joints: Unremarkable. No acute fracture. Paranasal sinuses: Visualized sinuses are unremarkable. No fluid levels. Mastoid air cells: Visualized mastoid air cells are well aerated. Soft tissues: Unremarkable. IMPRESSION: No acute intracranial hemorrhage..
--- NOTE | 2021-03-19 09:29 | XR_ITS ---
PROCEDURE INFORMATION: Exam: XR Chest Exam date and time: 03/19/2021 9:29 AM Age: 85 years old Clinical indication: Other: AMS TECHNIQUE: Imaging protocol: XR of the chest. Views: 1 view. COMPARISON: CR XR CHEST PORTABLE PICC PLAC 03/13/2021 9:07 AM FINDINGS: Tubes, catheters and devices: A right peripherally inserted central venous catheter lies with its tip in the superior vena cava. Lungs: Unremarkable. No consolidation. Pleural spaces: Unremarkable. No pleural effusion. No pneumothorax. Heart/Mediastinum: Cardiomegaly Diaphragm: Elevated right hemidiaphragm Bones/joints: Unremarkable. IMPRESSION: No acute process
[2021-03-19 09:40] LABS: Microscopic, Urine URINE MICROSCOPIC (MICROSCOPIC)
[2021-03-19 09:40] LABS: Adenovirus,PCR Not Detected (NotDetected); Bordetella Pertussis Not Detected (NotDetected); Chlamydophila Pneumoniae, PCR Not Detected (NotDetected); Coronavirus 19, PCR Not Detected (NotDetected); Coronavirus 229E Not Detected (NotDetected); Coronavirus NL63 Not Detected (NotDetected); Coronavirus OC43 Not Detected (NotDetected); Coronovirus HKU1,PCR Not Detected (NotDetected); Human Metapneumovirus Not Detected (NotDetected); Influenza A, PCR Not Detected (NotDetected); Influenza AH1, 2009 Not Detected (NotDetected); Influenza AH1, PCR Not Detected (NotDetected); Influenza AH3,PCR Not Detected (NotDetected); Influenza B, PCR Not Detected (NotDetected); Mycoplasma Pneumoniae, PCR Not Detected (NotDetected); Parainfluenza 1, PCR Not Detected (NotDetected); Parainfluenza 2, PCR Not Detected (NotDetected); Parainfluenza 3, PCR Not Detected (NotDetected); Parainfluenza 4, PCR Not Detected (NotDetected); Respiratory Syncytial Virus Not Detected (NotDetected); Rhinovirus/Enterovirus Not Detected (NotDetected)
[2021-03-19 09:41] LABS: Chloride 104 mmol/L (98-107)
[2021-03-19 09:42] LABS: Appearance,Urine CLEAR (Clear); Bilirubin,Urine Negative (Negative); Blood, Urine 3+ (Negative); Color,Urine YELLOW (Yellow); Glucose,Urine (UA) 2+ (Negative); Ketones,Urine Negative (Negative); Leukocyte Esterase,Urine Negative (Negative); Nitrate,Urine Negative (Negative); Protein,Urine 1+ (Negative); Specific Gravity, Urine >= 1.030 (1.005-1.030); Urobilinogen,Urine 0.2 EU/dl (0.2)
[2021-03-19 09:42] LABS: Potassium 3.7 mmoL/L (3.5-5.1); Sodium 133 mmol/L (136-145)
[2021-03-19 09:44] LABS: Alanine Aminotransferase 85 U/L (12-78); Aspartate Amino Transferase 63 U/L (14-36); Blood Urea Nitrogen 9 mg/dl (7-17); Creatine Kinase 938 U/L (30-135); Creatinine Clearance Estimated 64 mL/min (50-200); Estimated Glomerular Filt Rate 95 ml/min (>60); GFR (African American) 116 ML/MIN (>60)
[2021-03-19 09:45] LABS: Albumin Level 2.2 g/dl (3.5-5.0); Albumin/Globulin Ratio 0.8 (1.1-1.8); Alkaline Phosphatase 71 U/L (38-126); Anion Gap 4.7 mEq/L (5-15); Calcium 9.2 mg/dl (8.4-10.2); Carbon Dioxide 28 mmol/L (22.0-30.0); Globulin 2.6 g/dL (1.3-3.2); Glucose 143 mg/dl (74-100); Total Protein,Serum 4.8 g/dl (6.3-8.2)
[2021-03-19 09:50] LABS: RBC,Urine 20-50 #/hpf (0-3)
[2021-03-19 09:51] LABS: ABG Base Excess 1.4 mmol/L (-2.4-2.3); ABG HCO3 25.1 mmhg (22.0-26.0); ABG Oxygen Saturation 94 % (90-100); ABG PCO2 35.9 mmhg (35.0-45.0); ABG PH 7.46 mmol/L (7.35-7.45); ABG PO2 65.2 mmhg (80-100); ABG TCO2 26.2 mmhg (23-27)
[2021-03-19 09:52] LABS: Allen's Test Acceptable; Source Left Radial
--- NOTE | 2021-03-19 09:52 | PC.NURSE ---
pt to ct
[2021-03-19 09:54] LABS: CKMB Relative Index 0.2 U/L (0-4.0); Creatine Kinase MB 1.9 ng/ml (0.0-2.03)
[2021-03-19 09:59] LABS: Basophils % 0.7 % (0.1-2.0); Eosinophils % 1.9 % (0.1-12.0); Hematocrit 28.9 % (37.0-47.0); Hemoglobin 8.8 g/dL (12.2-16.2); Lymphocytes # 1.6 K/mm3 (0.7-4.5); Lymphocytes % 9.8 % (10-50); Mean Corpuscular HGB Conc 30.4 g/dL (31.8-35.4); Mean Corpuscular Hemoglobin 29.2 pg (27.0-31.2); Mean Corpuscular Volume 96.1 fl (81-99); Mean Platelet Volume 7.4 fl (7.4-10.4); Monocytes % 4.8 % (1.7-9.3); Neutrophils # 13.2 K/mm3 (1.8-7.8); Neutrophils % 82.8 % (37.0-80.0); Platelet Count 316 K/mm3 (142-424); Red Blood Count 3.01 M/mm3 (4.20-5.40); Red Cell Distribution Width 20.3 % (11.5-17.5); Troponin I < 0.01 ng/ml (0.00-0.034)
[2021-03-19 10:00] LABS: Basophils # 0.1 K/mm3 (0-0.2); Eosinophils # 0.3 K/mm3 (0.0-0.4); MANUAL DIFFERENTIAL MANUAL DIFFERENTIAL (MANUAL DIFF); Monocytes # 0.8 K/mm3 (0.1-1.0)
--- NOTE | 2021-03-19 10:04 | PC.NURSE ---
pt return from CT
[2021-03-19 10:06] LABS: Ammonia < 9 umol/L (9-30)
[2021-03-19 10:09] LABS: Lymphocytes % 14 % (10-50); Monocytes % 5 % (2-9); Neutrophils % 75 % (42-76); Platelet Estimate Normal; Total Cells Counted 100
[2021-03-19 10:10] LABS: RBC Morphology Normal
[2021-03-19 10:16] LABS: Thyroid Stimulating Hormone 7.26 uIU/mL (0.465-4.68)
--- NOTE | 2021-03-19 10:23 | PC.NURSE ---
checked on pt at this time, pt is more responsive, able to answer some questions. Pt states she doesn't where she is (told pt she is at the hospital). Pt asked if she is in any pain, pt states yes, asked pt where pt states my legs . notified ER MD pt improvement in pts mental status.
[2021-03-19 10:27] LABS: Amphetamine/Metha Screen,Urine Negative ng/ml (<1000); Barbiturates Screen,Urine Negative ng/ml (<200)
[2021-03-19 10:28] LABS: Benzodiazepines Screen,Urine Positive ng/ml (<200); Cannabinoid Screen,Urine Negative ng/ml (<50)
[2021-03-19 10:29] LABS: Cocaine Screen,Urine Negative ng/ml (<300)
[2021-03-19 10:30] LABS: Methadone Screen,Urine Negative ng/ml (<300); Opiate Screen,Urine Positive ng/ml (<300)
[2021-03-19 10:31] LABS: Phencyclidine Screen,Urine Negative ng/ml (<25)
--- NOTE | 2021-03-19 10:54 | PC.NURSE ---
pt son at [facility] oral care provided at this time for pt r/t dry mouth c/o per pt
--- NOTE | 2021-03-19 11:10 | PC.NURSE ---
per corine at [facility] pt received her last dose of hydrocodone at approx 6pm lastnight - per pts MAR send from detention last dose was saturdaymarch 17. states pt diazepam was d/c'd upon admission to their facility notified ER MD of the above. ER MD at reassessing pt at this time and speaking with pt son.
--- NOTE | 2021-03-19 11:29 | CA_ITS ---
APPROVED REPORT Bilateral Lower Extremity Venous Study for Dean Of Admissions: CN Indications swelling, pain hx-rt arterial thrombectomy with revascularization-1week ago Vein Imaging CFV (R): compressive, spontaneous, phasic, augmentation FEM (R): compressive, spontaneous, phasic, augmentation POP (R): compressive, spontaneous, phasic, augmentation DFV (R): compressive, spontaneous, phasic, augmentation PTV (R): compressive, spontaneous, phasic, augmentation GSV (R): compressive, spontaneous, phasic, augmentation Peroneals (R):compressive, spontaneous, phasic, augmentation GAS (R): compressive, spontaneous, phasic, augmentation Findings Non-vascularized complex structure visualized in the right proximal to mid thigh at area of pain. Negative for DVT. Conclusion No DVT. Complex heterogeneously echogenic area noted in the right groin and proximal thigh, likely represents a hematoma. Electronically signed by : Mireya Ward, 03/22/2021 16:56:56
--- NOTE | 2021-03-19 12:02 | PC.NURSE ---
charging board operator paging dr. adame per er request
--- NOTE | 2021-03-19 13:20 | PC.NURSE ---
report called to corine fernandes RN at [facility] at this time
[2021-03-22 13:29] LABS: Chlordiazepoxide <0.1 ug/mL (0.1-0.9)
[2021-03-22 14:15] LABS: Acetone <0.010 g/dL (0.000-0.010); Butalbital <1 ug/mL (1-10); Diazepam <0.1 ug/mL (0.1-0.9); Ethanol <0.010 g/dL (0.000-0.010); Isopropanol <0.010 g/dL (0.000-0.010); Pentobarbital <1 ug/mL (1-5)
== END 2021-03-19 13:37 | disposition home or self-care (01) ==
PROVIDERS: Emergency Provider Emergency Medicine; PCP Family Medicine
DX: R40.0 Somnolence (principal); R60.0 Localized edema; I48.91 Unspecified atrial fibrillation; I50.9 Heart failure, unspecified; E11.9 Type 2 diabetes mellitus without complications; E78.5 Hyperlipidemia, unspecified; I10 Essential (primary) hypertension; Z87.891 Personal history of nicotine dependence; Z79.899 Other long term (current) drug therapy; Z20.822 Contact with and (suspected) exposure to COVID-19
CPT/HCPCS: 70450; 71045; 80053; 80305; 80306; 81001; 82140; 82550; 82553; 82803; 83605; 84443; 84484; 85007; 85025; 85610; 87040; 87506; 87581; 87633; 87798; 93005; 93971; 99284

== ENCOUNTER → 2021-03-19 19:39 | Outpatient (REF) | payer MEDICARE, MEDICAID, SELFPAY ==
[2021-03-19 20:12] LABS: Adenovirus F 40/41, stool Not Detected (NotDetected); Astrovirus Not Detected (NotDetected); Campylobacter Not Detected (NotDetected); Clostridium Difficile A/B, PCR Not Detected (NotDetected); Cryptosporidium Not Detected (NotDetected); Cyclospora Cayetanesis Not Detected (NotDetected); Entamoeba histolytica Not Detected (NotDetected); Enteroaggregative E coli Not Detected (NotDetected); Enteropathogenic E coli Not Detected (NotDetected); Enterotoxigenic E coli Not Detected (NotDetected); Giardia lamblia Not Detected (NotDetected); Norovirus Not Detected (NotDetected); Plesimonas Shigalloides, PCR Not Detected (NotDetected); Rotavirus A Not Detected (NotDetected); Salmonella, PCR Not Detected (NotDetected); Sapovirus Not Detected (NotDetected); Shiga-like toxin E coli Not Detected (NotDetected); Shigella Enterovasive E coli Not Detected (NotDetected); Vibrio Cholerae Not Detected (NotDetected); Vibrio, PCR Not Detected (NotDetected); Yersinia Entercolitica, PCR Not Detected (NotDetected)
== END ==
LOC: LAB 19:39
PROVIDERS: Visit Provider Family Medicine
DX: A04.71 Enterocolitis due to Clostridium difficile, recurrent (principal)
CPT/HCPCS: 87506

== ENCOUNTER 2021-03-26 19:19 | Emergency (ER) | payer MEDICARE, MEDICAID, SELFPAY ==
[2021-03-26 19:22] VITALS: PULSE 109; RESP 16; O2SAT 94
[2021-03-26 19:24] VITALS: BP 162/74; PULSE 112; RESP 20; TEMP 37.2; O2SAT 93
--- NOTE | 2021-03-26 19:26 | CT_ITS ---
PROCEDURE INFORMATION: Exam: CT Abdomen And Pelvis With Contrast Exam date and time: 03/26/2021 7:26 PM Age: 85 years old Clinical indication: Abdominal pain; Localized; Right lower quadrant (rlq); Prior surgery; Surgery date: 6+ months; Surgery type: Kidney removal; Patient HX: Possible bowel obstruction per halfway, diarrhea today per halfway, rlq pain, PT has one kidney TECHNIQUE: Imaging protocol: Computed tomography of the abdomen and pelvis with contrast. Radiation optimization: All CT scans at this facility use at least one of these dose optimization techniques: automated exposure control; mA and/or kV adjustment per patient size (includes targeted exams where dose is matched to clinical indication); or iterative reconstruction. Contrast material: ISOVUE; Contrast volume: 75 ml; Contrast route: IV; COMPARISON: CT ABDOMEN PELVIS WO CON 05/03/2020 1:28 AM FINDINGS: Pleural spaces: Large bilateral pleural effusions. Liver: Normal. No mass. Gallbladder and bile ducts: Normal. No calcified stones. No ductal dilation. Pancreas: Normal. No ductal dilation. Spleen: Normal. No splenomegaly. Adrenal glands: Normal. No mass. Kidneys and ureters: There is moderate to severe right hydronephrosis and ureteral dilatation but no stones in the ureter or in the bladder. There is also enhancement of the urothelium concerning for pyelonephritis. Stomach and bowel: Diverticulosis in the sigmoid without diverticulitis. No no colitis or small bowel obstruction. Appendix: No evidence of appendicitis. Intraperitoneal space: Unremarkable. No free air. No significant fluid collection. Vasculature: Unremarkable. No abdominal aortic aneurysm. Lymph nodes: Unremarkable. No enlarged lymph nodes. Urinary bladder: Mcneal catheter in the urinary bladder. Reproductive: Unremarkable as visualized. Bones/joints: Unremarkable. No acute fracture. Soft tissues: Unremarkable. IMPRESSION: 1. Large bilateral pleural effusions with associated atelectasis versus less likely pneumonia. 2. Findings reflecting mild pyelonephritis on the right. 3. Diverticulosis in the sigmoid without diverticulitis. No colitis or small bowel obstruction.
[2021-03-26 19:30] VITALS: BP 168/76; PULSE 103; RESP 16; RESP 17; O2SAT 93
[2021-03-26 19:30] LABS: Microscopic, Urine URINE MICROSCOPIC (MICROSCOPIC)
[2021-03-26 19:36] LABS: Basophils # 0.1 K/mm3 (0-0.2); Basophils % 0.8 % (0.1-2.0); Eosinophils # 0.2 K/mm3 (0.0-0.4); Eosinophils % 2.3 % (0.1-12.0); Hematocrit 33.4 % (37.0-47.0); Lymphocytes % 12.3 % (10-50); Mean Corpuscular Hemoglobin 30.5 pg (27.0-31.2); Mean Corpuscular Volume 101.9 fl (81-99); Mean Platelet Volume 7.2 fl (7.4-10.4); Monocytes # 0.7 K/mm3 (0.1-1.0); Monocytes % 8.9 % (1.7-9.3); Neutrophils # 5.9 K/mm3 (1.8-7.8); Neutrophils % 75.6 % (37.0-80.0); Platelet Count 471 K/mm3 (142-424); Red Blood Count 3.28 M/mm3 (4.20-5.40); White Blood Count 7.8 K/mm3 (4.8-10.8)
[2021-03-26 19:37] LABS: Appearance,Urine SL CLOUDY (Clear); Bilirubin,Urine Negative (Negative); Blood, Urine 2+ (Negative); Color,Urine YELLOW (Yellow); Glucose,Urine (UA) 3+ (Negative); Ketones,Urine Negative (Negative); Leukocyte Esterase,Urine 2+ (Negative); Nitrate,Urine POSITIVE (Negative); Protein,Urine TRACE (Negative); Specific Gravity, Urine 1.015 (1.005-1.030); Urobilinogen,Urine 0.2 EU/dl (0.2)
[2021-03-26 19:40] LABS: Alanine Aminotransferase 34 U/L (12-78); Albumin Level 2.7 g/dl (3.5-5.0); Albumin/Globulin Ratio 0.9 (1.1-1.8); Alkaline Phosphatase 77 U/L (38-126); Amylase 37 U/L (30-110); Anion Gap 2.7 mEq/L (5-15); Aspartate Amino Transferase 32 U/L (14-36); Bilirubin,Total 0.8 mg/dl (0.2-1.3); Blood Urea Nitrogen 6 mg/dl (7-17); Calcium 10.5 mg/dl (8.4-10.2); Carbon Dioxide 32 mmol/L (22.0-30.0); Chloride 104 mmol/L (98-107); Creatinine Clearance Estimated 53 mL/min (50-200); Estimated Glomerular Filt Rate 95 ml/min (>60); GFR (African American) 116 ML/MIN (>60); Glucose 184 mg/dl (74-100); Lipase 83 U/L (23-300); Potassium 3.7 mmoL/L (3.5-5.1); Sodium 135 mmol/L (136-145); Total Protein,Serum 5.7 g/dl (6.3-8.2)
[2021-03-26 19:44] LABS: Bacteria,Urine Trace /lpf; WBC,Urine TNTC #/hpf (0-3)
[2021-03-26 19:45] VITALS: PULSE 107; RESP 18; O2SAT 94
[2021-03-26 19:46] LABS: C-Reactive Protein 41.4 mg/L (0-4)
[2021-03-26 19:59] LABS: Procalcitonin 0.094 ng/mL (0.0-2.0)
--- NOTE | 2021-03-26 20:10 | HMH.EDNVD ---
ED Disposition Clinical Impression: Acute urinary retention UTI (urinary tract infection) Qualifiers: Urinary tract infection type: acute pyelonephritis Qualified Code(s): N10 - Acute pyelonephritis Disposition: Home, Self-Care Condition on Discharge: Good Instructions: DI for Urinary Tract Infection (UTI) Additional Instructions: will leave cote and iv at this time and dose or roch iv in [address] christensen for follow up Referrals: Yahir Patrick MD [Primary Care Provider] - - Critical Care Critical Care Time: No Attestation: On 03/26/21, the high probability of a clinically significant, sudden or life threatening deterioration of the following system(s) required my full and direct attention, intervention and personal management. The time I documented below is in addition to time spent performing reported procedures but includes the following listed in this critical care notation. Medical Decision Making - Medical Records Medical records reviewed: Yes: I reviewed the patient's medical records. - Eddie Inquiry Pt receiving controlled substance: No Vital Signs: 03/26/21 19:22 03/26/21 19:24 03/26/21 19:30 Temperature 98.9 F Temperature Source Oral Pulse Rate 109 H 103 H Pulse Rate [Right] 112 H Respiratory Rate 16 20 17 Blood Pressure 168/76 H Blood Pressure [Right Arm] 162/74 H Blood Pressure Mean 99 Blood Pressure Mean [Right Arm] 103 Blood Pressure Source [Right Arm] Automatic Cuff Blood Pressure Position [Right Arm] Supine 02 Sat by Pulse Oximetry 94 L 93 L 93 L Oxygen Delivery Method Room Air 03/26/21 19:45 Temperature Temperature Source Pulse Rate 107 H Pulse Rate [Right] Respiratory Rate 18 Blood Pressure Blood Pressure [Right Arm] Blood Pressure Mean Blood Pressure Mean [Right Arm] Blood Pressure Source [Right Arm] Blood Pressure Position [Right Arm] 02 Sat by Pulse Oximetry 94 L Oxygen Delivery Method - Lab Data Lab results reviewed: Yes: I reviewed the patient's lab results. Lab Results 03/26/21 19:15: WBC 7.8, RBC 3.28 L, Hgb 10.0 L, Hct 33.4 L, MCV 101.9 H, MCH 30.5, MCHC 30.0 L, RDW 20.0 H, Plt Count 471 H, MPV 7.2 L, Neut % (Auto) 75.6, Lymph % (Auto) 12.3, Sullivan % (Auto) 8.9, Eos % (Auto) 2.3, Baso % (Auto) 0.8, Neut # (Auto) 5.9, Lymph # (Auto) 1.0, Sullivan # (Auto) 0.7, Eos # (Auto) 0.2, Baso # (Auto) 0.1 03/26/21 19:15: Sodium 135 L, Potassium 3.7, Chloride 104, Carbon Dioxide 32 H, Anion Gap 2.7 L, BUN 6 L, Creatinine 0.60, Estimated Creat Clear 53, Estimated GFR 95, Est GFR ( Amer) 116, Glucose 184 H, Calcium 10.5 H, Total Bilirubin 0.8, AST 32, ALT 34, Alkaline Phosphatase 77, C-Reactive Protein 41.4 H, Total Protein 5.7 L, Albumin 2.7 L, Globulin 3.0, Albumin/Globulin Ratio 0.9 L, Amylase 37, Lipase 83, Procalcitonin 0.094 03/26/21 19:26: Urine Color Yellow, Urine Appearance Sl cloudy, Urine pH 8.0, Ur Specific [place] 1.015, Urine Protein Trace, Urine Glucose (UA) 3+, Urine Ketones Negative, Urine Blood 2+, Urine Nitrate Positive, Urine Bilirubin Negative, Urine Urobilinogen 0.2, Ur Leukocyte Esterase 2+ A, Urine RBC 5-10, Urine WBC Tntc, Ur Squamous Epith Cells None, Urine Bacteria Trace Result diagrams: 03/26/21 19:15 03/26/21 19:15 Orders (Tests/Meds): ED MEDICATIONS Generic Name Dose Route Start Last Admin Trade Name Freq PRN Reason Stop Dose Admin Sodium Chloride 1,000 mls @ 999 mls/hr 03/26/21 19:30 03/26/21 19:31 Sod Chlor 0.9% 1000ml Bag IV 03/26/21 20:30 999 mls/hr .Q1H1M BÁRBARA Administration Sodium Chloride 8 ml 03/26/21 19:29 Sodium Chloride 0.9% 10ml Vial IV 04/25/21 19:28 NEEDED PRN dilute pepcid Discontinued Medications Generic Name Dose Route Start Last Admin Trade Name Freq PRN Reason Stop Dose Admin Famotidine 20 mg 03/26/21 19:29 03/26/21 19:30 Famotidine 20mg/2ml Vial IV 03/26/21 19:30 20 mg ONCE ONE Administration Iopamidol 75 ml 03/26/21 20:14 0
[2021-03-26 21:24] LABS: Lactic Acid 1.1 mmol/L (0.7-2.1)
[2021-03-26 21:32] VITALS: BP 154/97; PULSE 100; RESP 16; TEMP 37.2; O2SAT 94
== END 2021-03-26 21:48 | disposition home or self-care (01) ==
PROVIDERS: Emergency Provider Emergency Medicine; PCP Internal Medicine Adolescent Medicine
DX: N10 Acute pyelonephritis (principal); N30.00 Acute cystitis without hematuria; E11.65 Type 2 diabetes mellitus with hyperglycemia; I48.0 Paroxysmal atrial fibrillation; I10 Essential (primary) hypertension; E78.5 Hyperlipidemia, unspecified; Z79.899 Other long term (current) drug therapy; Z20.822 Contact with and (suspected) exposure to COVID-19
CPT/HCPCS: 74177; 80053; 81001; 82150; 83605; 83690; 84145; 85025; 86140; 87040; 87086; 87088; 87186; 96365; 96367; 96375; 99284; Q9967; U0003

== ENCOUNTER → 2021-04-07 07:22 | Outpatient (CLI) | payer MEDICARE, MEDICAID, SELFPAY ==
--- NOTE | 2021-04-07 | CA_ITS ---
APPROVED REPORT Exam: Pharmacologic Technologist: Lluvia Muse Ht: 5 ft 4 in Wt: 169 lbs BSA: 1.82 m2 HR: 78 bpm BP: 154/81 mmHg Indications: elevated troponin Medical History Medications: Metoprolol,,,,, Pantoprazole,,,,, Glipizide,,,,, Lasix,,,,, XaRELTO,,,,, Plavix,,,,, Sophia,,,,, CardIZEM,,,,, Farixiga,,,,, Levothyoxine,,,,, Allergies: NKA Cardiac Risk Factors: HTN, Hyperlipidemia, Diabetes (non-insulin) Stress Test Details Test: Pharmacologic stress testing performed using 0.4 mg of regadenoson per 5 mL given IV over 10 seconds. HR Resting HR: 39 bpm Max Heart Rate (APMHR): 137.151769 bpm Max HR Achieved: 99 bpm Target HR (85% APMHR): 116.761129 bpm % of APMHR: 72.26 Recovery HR: 88 bpm BP Max BP: 145.0/67.0 mmHg Recovery BP: 126.0/58.0 mmHg ECG Clinical Reason for Termination: Completed Protocol Exercise duration: 04:03 min Highest Stage Achieved: Exercise capacity: 1.0 METs Stress ECG Conclusion No symptoms. No arrhythmia. Less than 1.5mm ST Segment changes. No -diagnostic Test Summary REST 08:58 0.0 0.0 39 . . . . Stage 1 01:00 10.0 0.0 47 . . . . Stage 1 02:00 10.0 0.0 78 . . . . Stage 1 . . . . . . . Protocol changed to Manual Treadmill Stage 1 03:00 0.0 0.0 64 . 139/ 64 . . Stage 1 04:00 0.0 0.0 55 . 124/ 53 . . Stage 1 04:03 0.0 0.0 44 . 124/ 53 . Stop exercise at 04:03 RECOVERY 01:00 0.0 0.0 23 . . . . RECOVERY 02:00 0.0 0.0 36 . . . . RECOVERY 02:55 0.0 0.0 68 . 126/ 58 . . Electronically signed by : Lexx Nagy 04/07/2021 13:28:23
--- NOTE | 2021-04-07 07:23 | NM_ITS ---
APPROVED REPORT Exam: Nuclear Stress Test Indication: ELEVATE TROPONIN, HTN,HYPERLIPIDEMIA, D.M., A-FIB, PVD, ABN EKG Patient Location: Outpatient Stress Tech: Lluvia Muse [place] Tech:Dhara Geiger, ARRT RT(R)(N) Ht: 5 ft 4 in Wt: 204 lbs HR: 78 bpm BP: 154/81 mmHg BSA: 1.97 m2 BMI: 35.0 History: ELEVATE TROPONIN, HTN,HYPERLIPIDEMIA, D.M., A-FIB, PVD, ABN EKG Procedure: Patient received a 0.4 mg of intravenous Lexiscan, resting heart rate 78 bpm, resting blood pressure 154/81 mmHg, with Lexiscan maximum heart rate achived was 99 bpm which is Less than 85 % of the maximum predicted heart rate and blood pressure was 145/67 mmHg. With Lexiscan, patient denied any complaint of chest pain. PT COULD NOT LAY ON STOMACH FOR PRONE IMAGES Electrocardiogram Resting electrocardiogram showed sinus rhythm right ventricular conduction delay low voltage QRS complexes, with Lexiscan there is less than 1.[address] segment depression noted from the baseline EKG. The EKG portion of the Lexiscan is nondiagnostic. Cardiac Stress and Resting SPECT Images: Cardiac Stress and Resting SPECT images were obtained using technetium 99m Myoview 30.7 mCi stress and 10.83 mCi at rest. Gated SPECT for analysis of segmental wall motion and calculation of the ejection fraction also done. Prone images were not obtained. Cardiac stress and resting SPECT images show reversible ischemia involving the apex and anterolateral wall, computer derived ejection fraction is over 65% with no regional wall motion abnormality, right ventricle is normal size and contractility. Conclusion: 1. The EKG portion of the Lexiscan is nondiagnostic. 2. Scintigraphic evidence of mild reversible ischemia involving the anterolateral lateral wall, computer derived ejection fraction is over 65% with no regional wall motion abnormality, right ventricle is normal size and contractility. 3. Abnormal Lexiscan Myoview study. Electronically signed by : Lexx Nagy, 04/07/2021 13:32:46
== END ==
PROVIDERS: PCP Internal Medicine Adolescent Medicine; Visit Provider Nurse Practitioner Family
DX: I10 Essential (primary) hypertension (principal); I48.91 Unspecified atrial fibrillation; I73.9 Peripheral vascular disease, unspecified; N28.9 Disorder of kidney and ureter, unspecified; R60.0 Localized edema; R77.8 Other specified abnormalities of plasma proteins; R94.31 Abnormal electrocardiogram [ECG] [EKG]
CPT/HCPCS: 78452; 93017; A9502; J2785

== ENCOUNTER → 2021-04-22 10:23 | Outpatient (REF) | payer MEDICARE, MEDICAID, SELFPAY | LOC: LAB.DROPOF 10:23 | PROVIDERS: Visit Provider Internal Medicine Adolescent Medicine | DX: Z20.822 Contact with and (suspected) exposure to COVID-19 (principal) | CPT/HCPCS: U0003 ==

== ENCOUNTER 2021-04-24 08:48 | Day surgery (SDC) | payer MEDICARE, MEDICAID, SELFPAY ==
[2021-04-24] VITALS (10 sets, daily range): BP systolic 118–157; BP diastolic 58–100; PULSE 58–102; RESP 16–20; TEMP 36.8; O2SAT 92–99; BMI 31.2
--- NOTE | 2021-04-24 07:03 | IR_ITS ---
APPROVED REPORT Patient Location: Outpatient Compressor Station Operator: MARYANA Suarez RT (R) PROCEDURES Left heart catheterization Left ventriculogram Selective coronary angiogram Catheter placement in the right external iliac artery Right external iliac artery antegrade angiogram with unilateral runoff to the right foot Catheter placed in the distal abdominal artery Distal abdominal aortogram INDICATION Known coronary disease, High risk abnormal stress test, Known peripheral vascular disease, Marisa claudication class III Informed consent was obtained prior to the procedure. COMPLICATIONS NONE Estimated Blood Loss: LESS THAN 10 ML TECHNIQUE One percent lidocaine used to anesthetize the right anterior aspect of the wrist. The right radial artery was accessed via the Seldinger technique. A 6 Mohawk sheath was placed in the right radial artery. 2.5 mg of verapamil, 800 mcg of nitroglycerin, 1mg Lidocaine and 5000 U Heparin were given through the arterial sheath. The trap catheter was also used to perform left heart catheterization, left ventriculogram and selective coronary angiogram. At the end of the diagnostic angiogram the advantage wire was required in order to traverse the transverse aorta and then descend down the descending thoracic aorta. Catheter was placed in the right external iliac artery and right external iliac artery antegrade angiography was performed with runoff to the right foot. At the end of the diagnostic unilateral runoff the catheter was pulled back to the distal abdominal aorta and abdominal aortography was performed. The apparatus was removed the sheath was removed good hemostasis was achieved using TR banding patient was transferred to postop holding her stable addition ANGIOGRAPHIC RESULTS The left main artery Normal The left anterior descending artery Has proximal 30% stenoses followed by mid vessel 30 to 40% stenosis at a 2 mm LAD segment. There is slow flow down the distal LAD. The circumflex artery Large dominant with mild 10% luminal irregularities The right coronary artery Small nondominant normal The SELF ventriculogram reveals Hyperdynamic at 80%. 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 The popliteal artery is also widely patent. Below the knee the right anterior tibialis artery has an ostial 90% stenosis with two-vessel runoff below the knee IMPRESSION Mild coronary disease as described above Hyperdynamic ventricle with apical HOCM Mild distal abdominal aorta disease which is nonflow limiting Widely patent bilateral iliofemoral arteries Widely patent right SFA right popliteal artery with 2-vessel runoff below the knee on the right side Severe disease in the ostial proximal segment of the right anterior tibialis artery which still provides flow distally and is not clinically or medically conducive to revascularization at this time PLAN 1. Medical management for the hypertrophic obstructive cardiomyopathy 2. Medical management for coronary disease 3. Medical management for peripheral artery disease Electronically signed by : Yg Melendez, 04/24/2021 11:52:15
== END 2021-04-24 14:26 | disposition home or self-care (01) ==
PROVIDERS: PCP Internal Medicine Adolescent Medicine; Visit Provider Internal Medicine
DX: I73.9 Peripheral vascular disease, unspecified (principal); I25.10 Atherosclerotic heart disease of native coronary artery without angina pectoris; I27.20 Pulmonary hypertension, unspecified; I48.91 Unspecified atrial fibrillation; N28.9 Disorder of kidney and ureter, unspecified; R77.8 Other specified abnormalities of plasma proteins; R94.31 Abnormal electrocardiogram [ECG] [EKG]; R94.39 Abnormal result of other cardiovascular function study; E11.69 Type 2 diabetes mellitus with other specified complication; I10 Essential (primary) hypertension; I48.20 Chronic atrial fibrillation, unspecified; I74.3 Embolism and thrombosis of arteries of the lower extremities; R09.89 Other specified symptoms and signs involving the circulatory and respiratory systems; R60.0 Localized edema; Z87.891 Personal history of nicotine dependence; I77.1 Stricture of artery
CPT/HCPCS: 36247; 75625; 75710; 93458; 99152; 99153; C1725; C1769; J1644; Q9966; Q9967

== ENCOUNTER → 2021-05-17 16:07 | Outpatient (CLI) | payer MEDICARE, MEDICAID, SELFPAY | PROVIDERS: Visit Provider Internal Medicine Adolescent Medicine | DX: N39.0 Urinary tract infection, site not specified (principal) | CPT/HCPCS: 87086; 87088 ==

== ENCOUNTER 2021-06-01 14:33 | Inpatient (IN) | payer MEDICARE, MEDICAID, SELFPAY ==
[2021-06-01] VITALS (11 sets, daily range): BP systolic 100–135; BP diastolic 49–73; PULSE 56–79; RESP 16–22; TEMP 35.6–36.8; O2SAT 61–97; BMI 25.0; BMI 26.7
--- NOTE | 2021-06-01 14:30 | ECG_ITS ---
APPROVED REPORT Exam: Resting ECG HR:70 bpm ECG Measurements Heart Rate 70 AXES QRSd 108 QRS 106 QT 396 T -16 QTc 427 Conclusion Atrial fibrillation Pulmonary disease pattern Right bundle branch block T wave abnormality, consider inferior ischemia or digitalis effect Abnormal ECG Electronically signed by : Yahir Patrick, 06/03/2021 15:23:08
--- NOTE | 2021-06-01 14:45 | XR_ITS ---
PROCEDURE: XR CHEST PORTABLE CLINICAL HISTORY: cough COMPARISON: CR XR CHEST PORTABLE from 03/11/2021 CR XR CHEST PORTABLE PICC PLAC from 03/13/2021 CR XR CHEST PORTABLE from 03/19/2021 FINDINGS: The cardiomediastinal silhouette and pulmonary vascularity are within normal limits. Minor chronic interstitial changes are noted. No lobar consolidation, pleural effusions or pneumothorax. Vascular calcification is noted. Degenerative changes of the visualized thoracic spine and bilateral shoulder joints. IMPRESSION: Minor chronic interstitial changes. No lobar consolidation or pleural effusions. Dictated by: Mireya Ward 06/01/2021 15:04 Mireya Ward in OV 06/01/2021 15:04
[2021-06-01 14:53] LABS: Basophils # 0.1 K/mm3 (0-0.2); Basophils % 0.6 % (0.1-2.0); Eosinophils # 0.1 K/mm3 (0.0-0.4); Eosinophils % 0.9 % (0.1-12.0); Hematocrit 42.1 % (37.0-47.0); Hemoglobin 13.8 g/dL (12.2-16.2); Lymphocytes # 1.9 K/mm3 (0.7-4.5); Lymphocytes % 20.7 % (10-50); Mean Corpuscular HGB Conc 32.8 g/dL (31.8-35.4); Mean Corpuscular Hemoglobin 30.5 pg (27.0-31.2); Mean Corpuscular Volume 93.2 fl (81-99); Mean Platelet Volume 7.6 fl (7.4-10.4); Monocytes # 0.6 K/mm3 (0.1-1.0); Monocytes % 6.5 % (1.7-9.3); Neutrophils # 6.4 K/mm3 (1.8-7.8); Neutrophils % 71.3 % (37.0-80.0); Platelet Count 434 K/mm3 (142-424); Red Blood Count 4.52 M/mm3 (4.20-5.40); Red Cell Distribution Width 14.2 % (11.5-17.5); White Blood Count 8.9 K/mm3 (4.8-10.8)
[2021-06-01 14:55] LABS: Chloride 100 mmol/L (98-107); Potassium 4.3 mmoL/L (3.5-5.1); Sodium 132 mmol/L (136-145)
--- NOTE | 2021-06-01 14:55 | PC.NURSE ---
Rad at bedside
--- NOTE | 2021-06-01 14:55 | PC.NURSE ---
Urine specimen sent to lab at this time.
[2021-06-01 14:57] LABS: Alanine Aminotransferase 9 U/L (12-78); Aspartate Amino Transferase 19 U/L (14-36); Blood Urea Nitrogen 23 mg/dl (7-17); Creatinine Clearance Estimated 45 mL/min (50-200); Estimated Glomerular Filt Rate 68 ml/min (>60); GFR (African American) 83 ML/MIN (>60)
[2021-06-01 14:58] LABS: Albumin Level 3.4 g/dl (3.5-5.0); Albumin/Globulin Ratio 0.9 (1.1-1.8); Alkaline Phosphatase 89 U/L (38-126); Anion Gap 10.3 mEq/L (5-15); Bilirubin,Total 0.5 mg/dl (0.2-1.3); Carbon Dioxide 26 mmol/L (22.0-30.0); Globulin 3.7 g/dL (1.3-3.2); Glucose 225 mg/dl (74-100); Total Protein,Serum 7.1 g/dl (6.3-8.2)
[2021-06-01 14:59] LABS: Microscopic, Urine URINE MICROSCOPIC (MICROSCOPIC)
[2021-06-01 15:03] LABS: Appearance,Urine TURBID (Clear); Bilirubin,Urine Negative (Negative); Blood, Urine 3+ (Negative); Color,Urine STRAW (Yellow); Glucose,Urine (UA) 3+ (Negative); Ketones,Urine TRACE (Negative); Leukocyte Esterase,Urine 2+ (Negative); Nitrate,Urine Negative (Negative); Protein,Urine 1+ (Negative); Specific Gravity, Urine 1.025 (1.005-1.030); Urobilinogen,Urine 0.2 EU/dl (0.2)
[2021-06-01 15:10] LABS: Acetone, Serum (Rapid) Small (None Detect)
[2021-06-01 15:25] LABS: Amorphous Sediment,Urine Trace /lpf; Mucus,Urine Trace /lpf; RBC,Urine TNTC #/hpf (0-3)
[2021-06-01 15:28] LABS: Lipase 695 U/L (23-300)
--- NOTE | 2021-06-01 15:28 | PC.NURSE ---
Spoke with Harjinder in lab, who called to report critical lab values. Lipase of 695 and Calcium of 14.1. This information was repeated back to Harjinder, who verified that it was correct. notified.
[2021-06-01 15:29] LABS: Calcium 14.1 mg/dl (8.4-10.2); Thyroid Stimulating Hormone 0.77 uIU/mL (0.465-4.68)
--- NOTE | 2021-06-01 16:01 | CT_ITS ---
PROCEDURE INFORMATION: Exam: CT Abdomen And Pelvis Without Contrast Exam date and time: 06/01/2021 4:01 PM Age: 86 years old Clinical indication: Abdominal pain; Prior surgery; Additional info: Abdominal pain, weakness TECHNIQUE: Imaging protocol: Computed tomography of the abdomen and pelvis without contrast. Radiation optimization: All CT scans at this facility use at least one of these dose optimization techniques: automated exposure control; mA and/or kV adjustment per patient size (includes targeted exams where dose is matched to clinical indication); or iterative reconstruction. COMPARISON: CT ABDOMEN PELVIS W CON 03/26/2021 8:06 PM FINDINGS: Lungs: Atelectatic changes noted within the lung bases. Pleural spaces: Pleural thickening noted within the right lung base. Heart: The heart demonstrates mild diffuse enlargement. Liver: Normal. No mass. Gallbladder and bile ducts: Multiple calcified gallstones are present. Pancreas: Normal. No ductal dilation. Spleen: The spleen demonstrates punctate calcifications, consistent with remote granulomatous organism exposure. Adrenal glands: Thickening of both adrenal glands present. Kidneys and ureters: Moderate right hydronephrosis and ureteral dilatation is again noted with calcifications within the wall of the mid ureter noted. Air-fluid level is present within the right renal pelvis. 1.7 cm cyst is noted along the inferior pole of the right kidney. Left kidney appears to be absent. Stomach and bowel: A large amount of stool is noted throughout the colon. Moderate diverticulosis is present in the distal colon. Appendix: No evidence of appendicitis. Intraperitoneal space: Normal. No significant fluid collection. Vasculature: There is mild atherosclerotic calcification of the coronary arteries. Lymph nodes: Unremarkable. No enlarged lymph nodes. Urinary bladder: Air-fluid level present within the bladder with mild wall thickening. Findings may be secondary to instrumentation and or infection. Reproductive: Uterus is not well seen and may be absent. Bones/joints: The lumbar spine demonstrates mild degenerative changes at multiple levels. Soft tissues: Soft tissues are normal. IMPRESSION: 1. Moderate right hydronephrosis and ureteral dilatation is again noted with calcifications within the wall of the mid ureter noted. Findings are similar to the prior study. 2. Air-fluid level present within the bladder with mild wall thickening. Findings may be secondary to instrumentation and or infection. 3. A large amount of stool is noted throughout the colon. 4. Moderate diverticulosis is present in the distal colon. 5. Left kidney appears to be absent. COMMENTS: Consistent with the [employer]'s Incidental Findings Committee white paper (J Am Mykel Radiol 2018): Any incidental renal lesion less than 1 cm or classified as too small to characterize, or any incidental cystic renal lesion characterized as simple-appearing, is likely benign. No follow-up imaging is recommended for these lesions per consensus recommendations based on imaging criteria.
--- NOTE | 2021-06-01 16:02 | HMH.EDGENADL ---
ED Disposition Clinical Impression: UTI (urinary tract infection) Qualifiers: Urinary tract infection type: acute cystitis Hematuria presence: with hematuria Qualified Code(s): N30.01 - Acute cystitis with hematuria A-fib Qualifiers: Atrial fibrillation type: longstanding persistent Qualified Code(s): I48.11 - Longstanding persistent atrial fibrillation Pancreatitis Qualifiers: Chronicity: acute Pancreatitis type: other Acute pancreatitis complication: no infection or necrosis Qualified Code(s): K85.80 - Other acute pancreatitis without necrosis or infection Failure to thrive Qualifiers: Failure to thrive age range: in adult Qualified Code(s): R62.7 - Adult failure to thrive Disposition: Admitted As Inpatient Condition on Discharge: Fair Referrals: Yahir Patrick MD [Primary Care Provider] - - Critical Care Critical Care Time: No Attestation: On 06/01/21, the high probability of a clinically significant, sudden or life threatening deterioration of the following system(s) required my full and direct attention, intervention and personal management. The time I documented below is in addition to time spent performing reported procedures but includes the following listed in this critical care notation. Medical Decision Making - Medical Records Medical records reviewed: Yes: I reviewed the patient's medical records. - Eddie Inquiry Pt receiving controlled substance: No Vital Signs: 06/01/21 14:34 06/01/21 15:01 Temperature 97.6 F Temperature Source Oral Pulse Rate [Right] 79 Respiratory Rate 22 22 Blood Pressure 119/49 L Blood Pressure [Right Arm] 125/73 Blood Pressure Mean 70 Blood Pressure Mean [Right Arm] 90 02 Sat by Pulse Oximetry 97 97 Oxygen Delivery Method Room Air - Lab Data Lab Results 06/01/21 14:38: WBC 8.9, RBC 4.52, Hgb 13.8, Hct 42.1, MCV 93.2, MCH 30.5, MCHC 32.8, RDW 14.2, Plt Count 434 H, MPV 7.6, Neut % (Auto) 71.3, Lymph % (Auto) 20.7, [place] % (Auto) 6.5, Eos % (Auto) 0.9, Baso % (Auto) 0.6, Neut # (Auto) 6.4, Lymph # (Auto) 1.9, [place] # (Auto) 0.6, Eos # (Auto) 0.1, Baso # (Auto) 0.1 06/01/21 14:38: Sodium 132 L, Potassium 4.3, Chloride 100, Carbon Dioxide 26, Anion Gap 10.3, BUN 23 H, Creatinine 0.80, Estimated Creat Clear 45, Estimated GFR 68, Est GFR ( Amer) 83, Glucose 225 H, Calcium 14.1 H*, Total Bilirubin 0.5, AST 19, ALT 9 L, Alkaline Phosphatase 89, Total Protein 7.1, Albumin 3.4 L, Globulin 3.7 H, Albumin/Globulin Ratio 0.9 L, Lipase 695 H, TSH 0.77, Acetone Level Small 06/01/21 14:53: Urine Color Straw, Urine Appearance Turbid, Urine pH 5.0, Ur Specific [place] 1.025, Urine Protein 1+, Urine Glucose (UA) 3+, Urine Ketones Trace, Urine Blood 3+, Urine Nitrate Negative, Urine Bilirubin Negative, Urine Urobilinogen 0.2, Ur Leukocyte Esterase 2+ A, Urine RBC Tntc, Urine WBC 10-20, Ur Squamous Epith Cells 5-10, Amorphous Sediment Trace, Urine Bacteria None, Urine Mucus Trace Result diagrams: 06/01/21 14:38 06/01/21 14:38 Orders (Tests/Meds): ED MEDICATIONS Generic Name Dose Route Start Last Admin Trade Name Freq PRN Reason Stop Dose Admin Ceftriaxone Sodium 1 gm/ 50 mls @ 100 mls/hr 06/01/21 16:15 Sodium Chloride IV 06/15/21 16:14 Q24H [facility] Protocol ORDERS Category Date Time Status CT abdomen pelvis wo con Stat Cat Scan 06/01/21 16:01 Ordered Rapid PCR Covid and Flu A/B Stat Lab 06/01/21 15:58 Received Urine Culture Stat Micro 06/01/21 14:53 Received - Radiology Data #1 Image(s): Chest Image Reviewed: Yes I reviewed the patient's radiology results, Yes I reviewed the patient's radiology image, Yes I have reviewed radiologist's interpretation Preliminary Findings: Normal/NAD - ECG Data Tracing #1 No ventricular rate is 70 bpm, atrial fibrillation with pulmonary disease pattern, nonspecific changes. ECG initial impression date: 06/01/21 ECG initial impression time: 14:30 - Reevaluation(s) Time: 16:21 Reev
[2021-06-01 16:04] LABS: Coronavirus 19, PCR Not Detected (NotDetected); Influenza A, PCR Not Detected (NotDetected); Influenza B, PCR Not Detected (NotDetected)
--- NOTE | 2021-06-01 16:07 | PC.NURSE ---
Dr Lerner speaking with Dr Patrick
--- NOTE | 2021-06-01 17:46 | PC.NURSE ---
GAVE REPORT TO JIMMY GUPTA RN AT THIS TIME
--- NOTE | 2021-06-01 18:03 | PC.NURSE ---
PT ARRIVED TO FLOOR VIA STRETCHER FROM ED W/STAFF AT 1802
--- NOTE | 2021-06-01 18:34 | PC.NURSE ---
son (Uday San) @ [facility] and reports that pt is a DNR. Family reports that pt came home from [facility] on May 11. Pt's appetite has continued to decrease each day and she is now pocketing food and experiencing dysphagia. Diet is pureed according to family. Pt also interested in hospice services and wish for consult to be made tomorrow. No skin issues noted. Is incontinent of B/B. Has brief on. Knows name and . Disoriented to place and time. Family @ [facility].
[2021-06-01 20:55] LABS: POC Glucose,Bedside 162 (70-110)
--- NOTE | 2021-06-02 03:32 | PC.NURSE ---
Addendum entered by Rosalee Saavedra RN 06/02/21 04:50: Patient temperature this shift has been done rectally. Patient has been between 96.7-96.9 F. Patient has been bundled in warm blankets. Original Note: Patient is alert to herself only. She is incontinent of her bladder. No bowel movement noted thus far. There is a stage 2 pressure ulcer noted on her coccyx and a dressing was applied. Patient became diaphoretic around 2300 during the shift. Vital signs are stable. Patient has been very lethargic this shift. Lung sounds are diminished throughout and shallow abdominal breathing is noted. Bowel sounds are active in all quadrants. Call light within reach. Will continue to monitor.
[2021-06-02 04:00] VITALS: BP 139/60; PULSE 82; RESP 14; TEMP 35.9; O2SAT 94
[2021-06-02 05:00] VITALS: BMI 26.8
[2021-06-02 05:07] LABS: POC Glucose,Bedside 182 (70-110)
[2021-06-02 06:42] LABS: Basophils # 0.1 K/mm3 (0-0.2); Eosinophils # 0.1 K/mm3 (0.0-0.4); Eosinophils % 0.6 % (0.1-12.0); Hematocrit 38.8 % (37.0-47.0); Hemoglobin 12.6 g/dL (12.2-16.2); Lymphocytes # 1.7 K/mm3 (0.7-4.5); Lymphocytes % 21.3 % (10-50); Mean Corpuscular HGB Conc 32.6 g/dL (31.8-35.4); Mean Corpuscular Hemoglobin 31.5 pg (27.0-31.2); Mean Corpuscular Volume 96.7 fl (81-99); Mean Platelet Volume 7.5 fl (7.4-10.4); Monocytes # 0.5 K/mm3 (0.1-1.0); Monocytes % 5.7 % (1.7-9.3); Neutrophils # 5.8 K/mm3 (1.8-7.8); Neutrophils % 71.3 % (37.0-80.0); Platelet Count 382 K/mm3 (142-424); Red Blood Count 4.01 M/mm3 (4.20-5.40); Red Cell Distribution Width 14.2 % (11.5-17.5); White Blood Count 8.1 K/mm3 (4.8-10.8)
[2021-06-02 06:56] LABS: Alanine Aminotransferase 10 U/L (12-78); Albumin Level 3.1 g/dl (3.5-5.0); Albumin/Globulin Ratio 0.9 (1.1-1.8); Alkaline Phosphatase 73 U/L (38-126); Anion Gap 13.3 mEq/L (5-15); Aspartate Amino Transferase 18 U/L (14-36); Bilirubin,Total 0.4 mg/dl (0.2-1.3); Blood Urea Nitrogen 24 mg/dl (7-17); Carbon Dioxide 24 mmol/L (22.0-30.0); Chloride 103 mmol/L (98-107); Creatinine Clearance Estimated 45 mL/min (50-200); Estimated Glomerular Filt Rate 68 ml/min (>60); GFR (African American) 83 ML/MIN (>60); Globulin 3.3 g/dL (1.3-3.2); Glucose 186 mg/dl (74-100); Potassium 4.3 mmoL/L (3.5-5.1); Sodium 136 mmol/L (136-145); Total Protein,Serum 6.4 g/dl (6.3-8.2)
[2021-06-02 07:39] LABS: Calcium 13.6 mg/dl (8.4-10.2)
--- NOTE | 2021-06-02 07:39 | PC.NURSE ---
Dr. Cardenas notified of Ca 13.6
--- NOTE | 2021-06-02 07:57 | P.CONPHA_ITS ---
[facility] Pharmacy VTE Monitoring - Patient Demographics Admission date: 06/01/21 Report Date: 06/02/21 Time: 07:57 Allergies/Adverse Reactions: Patient Allergies No Known Allergies Allergy (Verified 04/17/21 14:34) Height: 1.6 m Weight: 68.719 kg Patient Problems: Current Active Problems UTI (urinary tract infection) (Acute) A-fib (Chronic) Pancreatitis (Acute) Failure to thrive (Acute) - VTE Risk Labs: VTE Related Lab Results Hgb 12.6 g/dL (12.2-16.2) 06/02/21 06:30 Hct 38.8 % (37.0-47.0) 06/02/21 06:30 Plt Count 382 K/mm3 (142-424) 06/02/21 06:30 BUN 24 mg/dl (7-17) H 06/02/21 06:30 Creatinine 0.80 mg/dl (0.52-1.04) 06/02/21 06:30 Estimated Creat Clear 45 mL/min (50-200) 06/02/21 06:30 Was VTE Risk Assessment Performed: Yes VTE Score: 6 VTE Risk Level: Moderate Risk Clinical Trial Participant: No - Prophylaxis VTE Prophylaxis Ordered?: Yes Types of VTE Prophylaxis: TEDS Knee High, Pharmacological Pharmacologic Type: Other (XARELTO)
[2021-06-02 08:00] VITALS: BP 140/67; PULSE 58; RESP 16; TEMP 36.8; O2SAT 96
--- NOTE | 2021-06-02 08:40 | HMH.PHAINT ---
MEDICATION RECONCILIATION COMPLETED USING EXTERNAL PHARMACY FILL HISTORY AND LIST FROM MD OFFICE.
--- NOTE | 2021-06-02 08:47 | HMH.HP ---
*Admission Date: 06/01/21 *Chief complaint: Confusion, failure to thrive *History of present illness: 86-year-old female presented to the emergency department with complaint of generalized weakness, failure to thrive. She has been progressing since coming home from the long term about 2 months ago. Family states her urine output is decreased, urine is turned dark. She is not eating and losing weight. She has been more confused and altered over the past few days to week. In the ER work-up initiated showing concern for UTI, failure to thrive, and pancreatitis on abdominal exam confirmed with positive elevated lipase. Admitted to medicine for further management. Our review this morning of patient's chart, her calcium was noted to be 14.1. PTH was added to morning labs, came back elevated at approximately 160. Patient states she feels better but cannot specify why. Is in no acute distress in her bed. [facility] History I have reviewed the patient's past medical history: Yes Medical History: Reports:: Arrhythmia, Atrial Fibrillation, Congestive Heart Failure, Diabetes Mellitus Type 2, Hyperlipidemia, Hypertension, Peripheral Artery Disease Denies:: Cancer, Diabetes Mellitus Type 1, MRSA, Seizures *Have you ever received a pneumonia vaccine?: No *Have you received a flu vaccine this season?: No Other Medical History: Reports: Arthritis Other Surgeries: Yes: No Previous Surgery, Angiogram Amputation: No Fractures: No - *Social History Smoking Status: Former smoker Alcohol Intake: never *Occupational Status:: retired Housing: house Household Members: family *Travel in the last 8 weeks: None Family Hx:: Unable to obtain Review of Systems - Review of Systems Review of systems:: pertinent systems reviewed and negative unless documented below (14 point review of systems performed, pertinent positives and negatives as per HPI) - *Neurologic Denies headache(s) Meds Home Medications Medication Instructions Recorded Confirmed Type Levothyroxine Sodium 100 mcg PO DAILY 05/03/20 06/01/21 History [Levothyroxine 100mcg (0.1MG) Tab] Dapagliflozin Propanediol [Farxiga] 10 mg PO DAILY 03/08/21 06/02/21 History Furosemide [Furosemide 20mg Tab*] 20 mg PO DAILY 03/09/21 06/01/21 History Clopidogrel Bisulfate [Plavix 75mg 75 mg PO DAILY 03/19/21 06/01/21 History Tab] Pantoprazole Sodium 40 mg PO DAILY 03/19/21 06/01/21 History Rivaroxaban [Xarelto 15mg tablet] 15 mg PO QPMWITHMEAL 03/19/21 06/02/21 History dilTIAZem HCL [Cardizem ER 240mg 240 mg PO DAILY 03/19/21 06/01/21 History Capsule] acetaminophen 500 mg tablet 1,000 mg PO Q6H PRN #30 tab 04/17/21 06/01/21 Rx calcium carbonate 200 mg calcium 400 mg PO Q4H PRN #120 tab 04/17/21 06/01/21 Rx (500 mg) chewable tablet Metoprolol Succinate [Metoprolol 50 mg PO DAILY 04/24/21 06/01/21 History Succinate 50mg Tablet*] Potassium Chloride [Micro-K 10mEq 10 meq PO DAILY 04/24/21 06/01/21 History cap] Escitalopram Oxalate 10 mg PO DAILY 06/01/21 06/01/21 History Gabapentin [Gabapentin 100mg Cap] 100 mg PO BID 06/01/21 06/01/21 History Insulin Degludec [Tresiba 6 units SQ DAILY 06/01/21 06/01/21 History Flextouch U-100] Mirtazapine [Remeron] 15 mg PO HS 06/02/21 06/02/21 History Allergies Allergy/AdvReac Type Severity Reaction Status Date / Time No Known Allergies Allergy Verified 04/17/21 14:34 Exam Vital signs and Labs for Last 24 Hours: Temp Pulse Resp BP Pulse Ox 98.2 F 58 L 16 140/67 96 06/02/21 08:00 06/02/21 08:00 06/02/21 08:00 06/02/21 08:00 06/02/21 08:00 Laboratory Results - last 24 hr 06/01/21 14:38: WBC 8.9, RBC 4.52, Hgb 13.8, Hct 42.1, MCV 93.2, MCH 30.5, MCHC 32.8, RDW 14.2, Plt Count 434 H, MPV 7.6, Neut % (Auto) 71.3, Lymph % (Auto) 20.7, [place] % (Auto) 6.5, Eos % (Auto) 0.9, Baso % (Auto) 0.6, Neut # (Auto) 6.4, Lymph # (Auto) 1.9, [place] # (Auto) 0.6, Eos # (Auto) 0.1, Baso # (Auto) 0.1 06/01/21 14:38: Sodium 132
[2021-06-02 08:56] LABS: Intact Parathyroid Hormone 159.6 pg/mL (7.5-53.5)
[2021-06-02 09:36] VITALS: BMI 26.8
--- NOTE | 2021-06-02 10:59 | HMH.PTWOUND ---
Rehab Inpt Wound Evaluation Rehab IP Wound Evaluation Start: 06/02/21 08:28 Freq: ONCE Status: Active Protocol: Document 06/02/21 10:56 MARILIN (Rec: 06/02/21 10:58 MARILIN [id number]) Rehab PT Wound Assessment Subjective Subjective 86 yowf adm to [facility] with UTI. Presents from home with small sacral decubitus ulcer. Wound Sacrum Wound Type Pressure Ulcer Is This a Chronic Wound Yes Wound Staging Stage II Query Text:Stage I - Unbroken, red skin, no blanching. Stage II - Skin broken, superficial skin loss involving epidermis alone or also dermis. Partial loss of skin layers. Stage III - Pressure area involves epidermis, dermis and subcutaneous tissue, full thickness skin loss. Stage IV - Pressure area involves epidermis, subcutaneous tissue, bone and other supportive tissue. Full thickness skin loss with extensive destruction of underlying tissue and structures. Wound Length (cm) 0.3 Wound Width (cm) 0.3 Wound Bed Appearance Addison Wound Margins Description Well Defined Surrounding Tissue Appearance Addison Drainage Amount None Primary Dressing Composite Dressing Change Patient Tolerance Tolerated Well Plan/Recommendation Comment Nsg to continue dressing changes as they had previously initiated. Eval Complexity Eval Charge Codes 89056 - Low Complexity PHYSICIAN CERTIFICATION: I certify the specified therapy services for Abigail San are required, authorized, and reviewed every 30 days.
[2021-06-02 11:26] LABS: POC Glucose,Bedside 169 (70-110)
--- NOTE | 2021-06-02 13:33 | DIET.NUTRFU ---
Pt with severe protein calorie malnutrition rt dementia with loss 17% BW past 3m, loss 30% BW past year. She is refusing most PO intake at this time. She was able to drink most of a Breeze/Boost supplement at lunch and seemed to like this, may be helpful to tell her it is juice. Please encourage/cue at meal times, she requires full assistance feeding at this time, prioritize puddings/desserts which are protein fortified. Pt may have additional Breeze/Glucerna, not ensure as it is high in Ca. Low fat/soft diet with TID protein fortification and BID supplements given, recommend Lipase labs so that diet may be liberalized as appropriate. Will continue without Na or Sugar/cho restriction at this time dt minimal intakes, BG moderate, no evidence fluid overload. Will monitor to alter nutritional care plan as indicated. Written diet edu for high energy/protein diet, CHF, nutritional considerations dementia provided.
[2021-06-02 13:57] LABS: Chloride 105 mmol/L (98-107); Potassium 3.9 mmoL/L (3.5-5.1); Sodium 139 mmol/L (136-145)
[2021-06-02 13:59] LABS: Alanine Aminotransferase 12 U/L (12-78); Blood Urea Nitrogen 19 mg/dl (7-17); Creatinine Clearance Estimated 45 mL/min (50-200); Estimated Glomerular Filt Rate 68 ml/min (>60); GFR (African American) 83 ML/MIN (>60)
[2021-06-02 14:00] LABS: Albumin Level 3.3 g/dl (3.5-5.0); Albumin/Globulin Ratio 0.9 (1.1-1.8); Alkaline Phosphatase 87 U/L (38-126); Anion Gap 15.9 mEq/L (5-15); Aspartate Amino Transferase 19 U/L (14-36); Bilirubin,Total 0.5 mg/dl (0.2-1.3); Carbon Dioxide 22 mmol/L (22.0-30.0); Globulin 3.5 g/dL (1.3-3.2); Glucose 298 mg/dl (74-100); Total Protein,Serum 6.8 g/dl (6.3-8.2)
[2021-06-02 14:02] LABS: Calcium 13.5 mg/dl (8.4-10.2)
--- NOTE | 2021-06-02 14:02 | PC.NURSE ---
Received call from lab (Michela) that Ca is 13.5. Name and verified as well as result. Notified Dr. Cardenas.
[2021-06-02 14:59] VITALS: BP 125/73; PULSE 99; RESP 16; TEMP 36.5; O2SAT 96
[2021-06-02 16:43] LABS: POC Glucose,Bedside 237 (70-110)
--- NOTE | 2021-06-03 03:25 | PC.NURSE ---
shift summary pt is alert but only oriented to person. lung sounds are clear with sats maintained 90% or above on room air. pt has rested comfortably for most of the night. ptr still has not eaten and only drinks enough to take her meds. pt has had no complaints. pt denies any pain, nausea, vomiting, or diarrhea. pt voids per brief urine is very dark. no acute changes will continue to monitor.
[2021-06-03 05:00] VITALS: BMI 26.9
[2021-06-03 05:32] LABS: POC Glucose,Bedside 180 (70-110)
[2021-06-03 05:49] LABS: POC Glucose,Bedside 202 (70-110)
[2021-06-03 06:00] VITALS: BP 134/70; PULSE 103; RESP 26; TEMP 36.8; O2SAT 96
[2021-06-03 07:09] LABS: Basophils % 0.3 % (0.1-2.0); Eosinophils % 0.1 % (0.1-12.0); Hematocrit 36.6 % (37.0-47.0); Hemoglobin 12.1 g/dL (12.2-16.2); Lymphocytes # 1.3 K/mm3 (0.7-4.5); Lymphocytes % 14.4 % (10-50); Mean Corpuscular Hemoglobin 31.5 pg (27.0-31.2); Mean Corpuscular Volume 95.7 fl (81-99); Mean Platelet Volume 7.7 fl (7.4-10.4); Monocytes # 0.3 K/mm3 (0.1-1.0); Monocytes % 3.8 % (1.7-9.3); Neutrophils # 7.2 K/mm3 (1.8-7.8); Neutrophils % 81.3 % (37.0-80.0); Platelet Count 353 K/mm3 (142-424); Red Blood Count 3.83 M/mm3 (4.20-5.40); Red Cell Distribution Width 14.6 % (11.5-17.5); White Blood Count 8.8 K/mm3 (4.8-10.8)
[2021-06-03 07:30] LABS: Alanine Aminotransferase 9 U/L (12-78); Alkaline Phosphatase 67 U/L (38-126); Anion Gap 14.7 mEq/L (5-15); Aspartate Amino Transferase 17 U/L (14-36); Bilirubin,Total 0.4 mg/dl (0.2-1.3); Blood Urea Nitrogen 16 mg/dl (7-17); Carbon Dioxide 21 mmol/L (22.0-30.0); Chloride 109 mmol/L (98-107); Creatinine Clearance Estimated 46 mL/min (50-200); Estimated Glomerular Filt Rate 95 ml/min (>60); GFR (African American) 115 ML/MIN (>60); Globulin 3.1 g/dL (1.3-3.2); Glucose 193 mg/dl (74-100); Magnesium 1.6 mg/dl (1.6-2.3); Potassium 3.7 mmoL/L (3.5-5.1); Sodium 141 mmol/L (136-145); Total Protein,Serum 6.1 g/dl (6.3-8.2)
[2021-06-03 07:36] LABS: Creatine Kinase < 20 U/L (30-135)
[2021-06-03 07:54] VITALS: BP 127/74; PULSE 97; RESP 22; TEMP 36.6; O2SAT 93
[2021-06-03 11:11] LABS: POC Glucose,Bedside 233 (70-110)
[2021-06-03 14:18] LABS: Lipase 53 U/L (23-300)
[2021-06-03 15:28] VITALS: BP 134/49; PULSE 78; RESP 16; TEMP 36.4; O2SAT 98
[2021-06-03 16:23] LABS: POC Glucose,Bedside 203 (70-110)
--- NOTE | 2021-06-03 17:53 | PC.NURSE ---
Pt has slept most of this shift. Pt has been a q2h turn in bed. Pt has refused all meals this shift. Pt was able to take meds whole this morning. Pt continues on RA. At this time, hospice nurse and family are discussing discharge plans for pt. No other acute changes or complaints at this time. Will continue to monitor.
--- NOTE | 2021-06-03 18:25 | HMH.ACPN2 ---
Internal Medicine - PN: Subj *Date: 06/03/21 *Time: 18:25 Interval history: Continues to remain afebrile, hemodynamically stable. Reviewed labs this morning. Some slight improvement in her calcium however clinically continues to remain fatigued, little interest in food, ill-appearing. Oriented to person and place. States she wants to go home today. Denies nausea or vomiting. States she does not feel any better at this time. Discussed patient's case with her family today after rounds. Exam Vital signs and Labs for Last 24 Hours: Temp Pulse Resp BP Pulse Ox 97.6 F 78 16 134/49 L 98 06/03/21 15:28 06/03/21 15:28 06/03/21 15:28 06/03/21 15:28 06/03/21 15:28 Laboratory Results - last 24 hr 06/02/21 21:55: POC Glucose 202 H 06/03/21 05:22: POC Glucose 180 H 06/03/21 06:47: WBC 8.8, RBC 3.83 L, Hgb 12.1 L, Hct 36.6 L, MCV 95.7, MCH 31.5 H, MCHC 33.0, RDW 14.6, Plt Count 353, MPV 7.7, Neut % (Auto) 81.3 H, Lymph % (Auto) 14.4, [place] % (Auto) 3.8, Eos % (Auto) 0.1, Baso % (Auto) 0.3, Neut # (Auto) 7.2, Lymph # (Auto) 1.3, [place] # (Auto) 0.3, Eos # (Auto) 0.0, Baso # (Auto) 0.0 06/03/21 06:47: Sodium 141, Potassium 3.7, Chloride 109 H, Carbon Dioxide 21 L, Anion Gap 14.7, BUN 16, Creatinine 0.60 D, Estimated Creat Clear 46, Estimated GFR 95, Est GFR ( Amer) 115 D, Glucose 193 H D, Calcium 12.0 H D, Magnesium 1.6, Total Bilirubin 0.4, AST 17, ALT 9 L, Alkaline Phosphatase 67, Total Creatine Kinase < 20 L, Total Protein 6.1 L, Albumin 3.0 L, Globulin 3.1, Albumin/Globulin Ratio 1.0 L 06/03/21 06:47: Lipase 53 06/03/21 10:58: POC Glucose 233 H 06/03/21 16:11: POC Glucose 203 H I & O for Last 24 hours: Intake & Output 05/31/21 06/01/21 06/02/21 06/03/21 23:59 23:59 23:59 23:59 Intake Total 2998 / 2998 60 / 60 Output Total 450 / 450 Balance 2998 / 2998 -390 / -390 Weight 68.577 kg 68.7 kg 69.031 kg Microbiology Reports for the Last 24 Hours: Microbiology 06/01/21 14:53 Urine,Clean Catch Urine Culture - Final NO GROWTH AFTER 48 HOURS Narrative: - Constitutional minimal distress, chronically ill appearing - *Routine HEENT Exam Head: Present: normocephalic Eye: Present: EOMI, PERRL ENT: Present: mucous membranes moist - *Routine Neck Exam Present: supple, soft rubbery nodule right upper neck approximately 1-1/2 cm in diameter. Also has some increased right-sided soft tissue density lower inner neck - *Routine Respiratory Exam Present: CTA bilaterally - *Routine Cardiovascular Exam Present: RRR - *Routine Abdominal Exam Present: soft, normoactive bowel sounds, tenderness (Nonfocal diffuse tenderness) - *Routine Extremities Exam Absent: cyanosis, clubbing, edema; Sarcopenia of legs, right knee pain with crepitus. - *Routine Skin Exam Present: warm. Absent: rash - *Routine Neurological Exam Present: alert; Oriented to person. Answers questions appropriately this morning. States she feels no better, when asked if she wants to go home she verbalizes yes. Assessment and Plan (1) Hypercalcemia Status: Acute Category: Medical Code(s): E83.52 - Hypercalcemia (2) Failure to thrive Status: Chronic Category: Medical (3) Pancreatitis Status: Acute Qualifiers: Chronicity: acute Pancreatitis type: other Acute pancreatitis complication: no infection or necrosis Qualified Code(s): K85.80 - Other acute pancreatitis without necrosis or infection Category: Medical Code(s): K85.90 - Acute pancreatitis without necrosis or infection, unspecified (4) Essential hypertension Status: Chronic Category: Medical Code(s): I10 - Essential (primary) hypertension (5) Protein-calorie malnutrition, severe Status: Acute Category: Medical Code(s): E43 - Unspecified severe protein-calorie malnutrition (6) Altered mental status Status: Acute Qualifiers: Altered mental status type: somnolence Qualified Code(s)
[2021-06-03 21:00] VITALS: BP 158/59; PULSE 87; RESP 18; TEMP 36.6; O2SAT 93
[2021-06-03 21:18] LABS: POC Glucose,Bedside 228 (70-110)
--- NOTE | 2021-06-04 03:49 | PC.NURSE ---
shift summary pt is alert but only oriented to person. lung sounds are clear with sats maintained 90% or above on room air. pt has slept all night. pt still has not eaten and only drinks enough to take her meds. pt has had no complaints. pt denies any pain, nausea, vomiting, or diarrhea. pt voids per purewick urine is very dark. no acute changes will continue to monitor.
[2021-06-04 05:00] VITALS: BMI 28.3
[2021-06-04 05:39] LABS: POC Glucose,Bedside 210 (70-110)
[2021-06-04 08:00] VITALS: BP 147/92; PULSE 75; RESP 18; TEMP 36.4; O2SAT 94
--- NOTE | 2021-06-04 10:30 | HMH.DCSUM ---
General - General Admission date:: 06/01/21 Discharge date: 06/04/21 HPI HPI: 86-year-old female presented to the emergency department with complaint of generalized weakness, failure to thrive. She has been progressing since coming home from the residential about 2 months ago. Family states her urine output is decreased, urine is turned dark. She is not eating and losing weight. She has been more confused and altered over the past few days to week. In the ER work-up initiated showing concern for UTI, failure to thrive, and pancreatitis on abdominal exam confirmed with positive elevated lipase. Admitted to medicine for further management. Our review this morning of patient's chart, her calcium was noted to be 14.1. PTH was added to morning labs, came back elevated at approximately 160. Patient states she feels better but cannot specify why. Is in no acute distress in her bed. Hospital Course Hospital Course: Ms. San is a chronically ill 86-year-old female with failure to thrive, worsening confusion, pancreatitis, hypercalcemia, and UTI. In the setting of current presentation, concerned that her hypercalcemia is underlying her other issues. Hypercalcemia -PTH level significantly elevated, patient has lump in the right side of her neck. 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 Improvement in calcium during admission using IV fluids, oral bisphosphonate, and subcutaneous calcitonin. No significant improvement clinically however in her cognition or discomfort. -Poor p.o. intake during hospitalization, would take mouthfuls of food and then spit it out. UTI -Diagnosed based off urinalysis, culture however is negative during hospitalization. Continued antibiotics during hospitalization however no indication to discharge home on antibiotics given negative culture. Suspect urinalysis abnormalities may be more related to dehydration and her chronic kidney issues then richard infection. Pancreatitis - Mild pain focally on exam - repeat lipase noted to be improved after fluid resuscitation - diet liberalized in line with goals of care. No pain with eating Failure to thrive - nutrition consulted, assisted with dietary recs. Pt has protein calorie malnutrition continued rate control and anticoagulation for PAD/CAD/Afib Patient is seriously ill. Acute on chronic conditions including hypercalcemia, A. fib, peripheral artery disease, coronary artery disease, worsening confusion, failure to thrive, UTI, solitary kidney, chronic anticoagulation, with new suspicion for hyperparathyroidism secondary to neoplasm. Given acute and chronic conditions, multiple discussions were had with family. At this time further work-up for cause of her hyperparathyroidism and hypercalcemia would likely cause significant stress and risk for morbidity with adding little to no benefit to quality of life. Discussed further work-up options versus hospice care with family. Shared decision making my family with decision to bring Ms. San home under the care of hospice and focus on comfort measures. Patient's prognosis is terminal, hospice consulted, patient accepted for home hospice. Will transition to their care at discharge. Provided with prescription for Roxanol if the need arises for pain control with transition of care to comfort measures in the hospice setting. Objective Vital signs: Temp Pulse Resp BP Pulse Ox 97.9 F 97 H 22 127/74 93 L 06/03/21 07:54 06/03/21 07:54 06/03/21 07:54 06/03/21 07:54 06/03/21 07:54 Narrative: - Constitutional minimal distress, chronically ill appearing - *Routine HEENT Exam Head: Present: normocephalic Eye: Present: EOMI, PERRL ENT: Present: mucous membranes moist - *Routine Neck Exam Present: supple, soft rubbery nodule right upper neck approximately 1-1/2 cm in diameter. Also has some increased right-sided soft tissue density lower inner neck - *R
[2021-06-04 11:42] LABS: POC Glucose,Bedside 182 (70-110)
== END 2021-06-04 14:25 | disposition hospice, home (50) | DRG 438 ==
LOC: ER 16:22 → 2ND 17:29
PROVIDERS: Internal Medicine Adolescent Medicine; Admitting Provider Internal Medicine Adolescent Medicine; Emergency Provider Emergency Medicine; PCP Internal Medicine Adolescent Medicine; Visit Provider Internal Medicine Adolescent Medicine
DX: K85.90 Acute pancreatitis without necrosis or infection, unspecified (principal); E43 Unspecified severe protein-calorie malnutrition; N39.0 Urinary tract infection, site not specified; I48.19 Other persistent atrial fibrillation; R62.7 Adult failure to thrive; Z68.28 Body mass index [BMI] 28.0-28.9, adult; Z51.5 Encounter for palliative care; R31.9 Hematuria, unspecified; Z20.822 Contact with and (suspected) exposure to COVID-19; Z79.4 Long term (current) use of insulin; E11.9 Type 2 diabetes mellitus without complications; E78.5 Hyperlipidemia, unspecified; I11.0 Hypertensive heart disease with heart failure; I50.9 Heart failure, unspecified; M19.90 Unspecified osteoarthritis, unspecified site; Z87.891 Personal history of nicotine dependence; I73.9 Peripheral vascular disease, unspecified; Z79.01 Long term (current) use of anticoagulants; E83.52 Hypercalcemia; E21.3 Hyperparathyroidism, unspecified
CPT/HCPCS: 36415; 71045; 74176; 80053; 81001; 82009; 82550; 82962; 83690; 83735; 83970; 84443; 85025; 87086; 93005; 96365; 99284; J0630; J2405; J3489; U0003

== ENCOUNTER 2021-06-11 16:31 | Observation (INO) | payer OTHER, SELFPAY ==
[2021-06-11] VITALS (8 sets, daily range): BP systolic 122–166; BP diastolic 61–87; PULSE 55–78; RESP 16–20; TEMP 36.8–37.3; O2SAT 98–99; BMI 30.9; BMI 27.7
--- NOTE | 2021-06-11 16:30 | ECG_ITS ---
APPROVED REPORT Exam: Resting ECG HR:60 bpm ECG Measurements Heart Rate 60 AXES QRSd 106 QRS 87 QT 436 T -80 QTc 436 Conclusion Atrial fibrillation Low voltage QRS Incomplete right bundle branch block ST & T wave abnormality, consider inferior ischemia or digitalis effect ST & T wave abnormality, consider anterolateral ischemia or digitalis effect Abnormal ECG Electronically signed by : Yahir Patrick, 06/11/2021 20:38:25
--- NOTE | 2021-06-11 16:48 | XR_ITS ---
PROCEDURE INFORMATION: Exam: XR Chest Exam date and time: 06/11/2021 4:48 PM Age: 86 years old Clinical indication: Other: Weakness TECHNIQUE: Imaging protocol: XR of the chest. Views: 1 view. COMPARISON: CR XR CHEST PORTABLE 06/01/2021 2:57 PM FINDINGS: Lungs: Unremarkable. No consolidation. Pleural spaces: Unremarkable. No pleural effusion. No pneumothorax. Heart/Mediastinum: Mild cardiac enlargement. Bones/joints: Unremarkable. IMPRESSION: Mild cardiac enlargement
--- NOTE | 2021-06-11 16:51 | CT_ITS ---
PROCEDURE INFORMATION: Exam: CT Head Without Contrast Exam date and time: 06/11/2021 4:51 PM Age: 86 years old Clinical indication: Other: Possible seizure; Additional info: Poss seizure TECHNIQUE: Imaging protocol: Computed tomography of the head without contrast. 3D rendering (Not supervised by radiologist): MIP and/or 3D reconstructed images were created by the technologist. Radiation optimization: All CT scans at this facility use at least one of these dose optimization techniques: automated exposure control; mA and/or kV adjustment per patient size (includes targeted exams where dose is matched to clinical indication); or iterative reconstruction. COMPARISON: CT HEAD/BRAIN WO CON 03/19/2021 9:51 AM FINDINGS: Brain: Moderate hypoattenuation is nonspecific, most likely due to chronic small vessel ischemia and is similar to prior. Cerebral ventricles: No ventriculomegaly. Paranasal sinuses: Visualized sinuses are unremarkable. No fluid levels. Mastoid air cells: Visualized mastoid air cells are well aerated. Bones/joints: Unremarkable. No acute fracture. Soft tissues: Unremarkable. IMPRESSION: No acute intracranial pathology
[2021-06-11 17:26] LABS: Basophils % 0.5 % (0.1-2.0); Eosinophils # 0.1 K/mm3 (0.0-0.4); Eosinophils % 0.8 % (0.1-12.0); Hematocrit 37.9 % (37.0-47.0); Hemoglobin 12.4 g/dL (12.2-16.2); Lymphocytes # 1.4 K/mm3 (0.7-4.5); Lymphocytes % 15.5 % (10-50); Mean Corpuscular HGB Conc 32.7 g/dL (31.8-35.4); Mean Corpuscular Hemoglobin 31.2 pg (27.0-31.2); Mean Corpuscular Volume 95.4 fl (81-99); Mean Platelet Volume 8.4 fl (7.4-10.4); Monocytes # 0.8 K/mm3 (0.1-1.0); Monocytes % 8.3 % (1.7-9.3); Neutrophils # 6.9 K/mm3 (1.8-7.8); Platelet Count 239 K/mm3 (142-424); Red Blood Count 3.97 M/mm3 (4.20-5.40); Red Cell Distribution Width 15.5 % (11.5-17.5); White Blood Count 9.2 K/mm3 (4.8-10.8)
[2021-06-11 17:35] LABS: Chloride 103 mmol/L (98-107)
[2021-06-11 17:36] LABS: Sodium 136 mmol/L (136-145)
[2021-06-11 17:37] LABS: Potassium 2.9 mmoL/L (3.5-5.1)
--- NOTE | 2021-06-11 17:37 | PC.NURSE ---
Spoke with Chen in the lab. She called a critical potassium value of 2.9. Value was repeated by this nurse and confirmed by Chen.
[2021-06-11 17:38] LABS: Alanine Aminotransferase 15 U/L (12-78); Aspartate Amino Transferase 18 U/L (14-36); Blood Urea Nitrogen 7 mg/dl (7-17); Creatinine Clearance Estimated 54 mL/min (50-200); Estimated Glomerular Filt Rate 95 ml/min (>60); GFR (African American) 115 ML/MIN (>60)
[2021-06-11 17:39] LABS: Albumin Level 2.8 g/dl (3.5-5.0); Albumin/Globulin Ratio 0.9 (1.1-1.8); Alkaline Phosphatase 72 U/L (38-126); Anion Gap 7.9 mEq/L (5-15); Bilirubin,Total 0.3 mg/dl (0.2-1.3); Calcium 8.4 mg/dl (8.4-10.2); Carbon Dioxide 28 mmol/L (22.0-30.0); Glucose 331 mg/dl (74-100); Total Protein,Serum 5.8 g/dl (6.3-8.2)
[2021-06-11 17:52] LABS: Troponin I < 0.01 ng/ml (0.00-0.034)
[2021-06-11 18:10] LABS: Microscopic, Urine URINE MICROSCOPIC (MICROSCOPIC)
[2021-06-11 18:11] LABS: Appearance,Urine CLOUDY (Clear); Bilirubin,Urine Negative (Negative); Blood, Urine 3+ (Negative); Color,Urine YELLOW (Yellow); Glucose,Urine (UA) 1+ (Negative); Ketones,Urine Negative (Negative); Leukocyte Esterase,Urine 2+ (Negative); Nitrate,Urine Negative (Negative); PH,Urine 5.5 (5.0-8.5); Protein,Urine 2+ (Negative); Urobilinogen,Urine 0.2 EU/dl (0.2)
--- NOTE | 2021-06-11 18:19 | HMH.EDWEAK ---
ED Disposition Clinical Impression: UTI (urinary tract infection), Hypokalemia Disposition: Admitted as Observation Condition on Discharge: Good Referrals: Yahir Patrick MD [Primary Care Provider] - - Critical Care Critical Care Time: No Attestation: On 06/11/21, the high probability of a clinically significant, sudden or life threatening deterioration of the following system(s) required my full and direct attention, intervention and personal management. The time I documented below is in addition to time spent performing reported procedures but includes the following listed in this critical care notation. Medical Decision Making - Medical Records MR Roberta: Has increased weakness per family and shaking episodes which mimic seizure. The only finding is UTI and hypokalemia will admit her for treatment for UTI. The hospitalist on-call was called and he agreed on admission. - Eddie Inquiry Pt receiving controlled substance: No Eddie was queried for this patient: No Vital Signs: 06/11/21 16:35 Temperature 99.1 F Temperature Source Oral Pulse Rate [Radial] 55 L Respiratory Rate 16 Blood Pressure [Right Arm] 128/61 Blood Pressure Mean [Right Arm] 83 Blood Pressure Position [Right Arm] Sitting 02 Sat by Pulse Oximetry 98 Oxygen Delivery Method Room Air - Lab Data Lab Results 06/11/21 17:10: WBC 9.2, RBC 3.97 L, Hgb 12.4, Hct 37.9, MCV 95.4, MCH 31.2, MCHC 32.7, RDW 15.5, Plt Count 239, MPV 8.4, Neut % (Auto) 75.0, Lymph % (Auto) 15.5, [place] % (Auto) 8.3, Eos % (Auto) 0.8, Baso % (Auto) 0.5, Neut # (Auto) 6.9, Lymph # (Auto) 1.4, [place] # (Auto) 0.8, Eos # (Auto) 0.1, Baso # (Auto) 0.0 06/11/21 17:10: Sodium 136, Potassium 2.9 L*, Chloride 103, Carbon Dioxide 28, Anion Gap 7.9, BUN 7, Creatinine 0.60, Estimated Creat Clear 54, Estimated GFR 95, Est GFR ( Amer) 115, Glucose 331 H, Calcium 8.4, Total Bilirubin 0.3, AST 18, ALT 15, Alkaline Phosphatase 72, Troponin I < 0.01, Total Protein 5.8 L, Albumin 2.8 L, Globulin 3.0, Albumin/Globulin Ratio 0.9 L 06/11/21 17:52: Lactate 1.6 06/11/21 18:06: Urine Color Yellow, Urine Appearance Cloudy, Urine pH 5.5, Ur Specific [place] 1.020, Urine Protein 2+, Urine Glucose (UA) 1+, Urine Ketones Negative, Urine Blood 3+, Urine Nitrate Negative, Urine Bilirubin Negative, Urine Urobilinogen 0.2, Ur Leukocyte Esterase 2+ A, Urine RBC Tntc, Urine WBC Tntc, Ur Squamous Epith Cells None Result diagrams: 06/11/21 17:10 06/11/21 17:10 Orders (Tests/Meds): ED MEDICATIONS Discontinued Medications Generic Name Dose Route Start Last Admin Trade Name Freq PRN Reason Stop Dose Admin Potassium Chloride 20 meq 06/11/21 18:18 06/11/21 18:20 Potassium Chloride 20meq/15ml Udc PO 06/11/21 18:19 20 meq ONCE ONE Administration ORDERS Category Date Time Status Troponin I Q3H Lab 06/11/21 20:00 Ordered Troponin I Q3H Lab 06/11/21 23:00 Ordered Blood Culture Stat Micro 06/11/21 18:55 Ordered Urine Culture Stat Micro 06/11/21 18:06 Received Weakness HPI - General Chief complaint: Weakness Stated complaint: weakness Time Seen by Provider: 06/11/21 18:20 Mode of Arrival: EMS Limitations: Physical Limitations Description of Symptoms (Recalled from ER Triage Doc. by RN): TO ED PER [facility] REPORTS THEY WERE CALLED BY FAMILY AND TOLD PT WAS SITTING OUTSIDE AND BECAME HOT WAS TAKEN INSIDE AND WAS SITTING IN FRONT OF A FAN AND HAD A SEIZURE PT POOR HISTORIAN, CONFUSED TO TIME. PT C/O LT LEG PAIN - History of Present Illness HPI Narrative: Ms San is 86-year-old female with a history of dementia under hospice care. The family called EMS to bring her here because she was shaking and they thought she may have seizure. No other history could be obtained. The patient says yes to any question. Has significant advanced dementia. Patient left the hospital on 01 June. Under hospice care and she is DNR. - Related Data Home Medications Medication Instruct
[2021-06-11 18:21] LABS: RBC,Urine TNTC #/hpf (0-3); WBC,Urine TNTC #/hpf (0-3)
[2021-06-11 18:26] LABS: Lactic Acid 1.6 mmol/L (0.7-2.1)
--- NOTE | 2021-06-11 19:05 | PC.NURSE ---
Dr Jones on with Dr Cortes
[2021-06-11 19:20] LABS: Coronavirus 19, PCR Not Detected (NotDetected); Influenza A, PCR Not Detected (NotDetected); Influenza B, PCR Not Detected (NotDetected)
--- NOTE | 2021-06-11 19:55 | PC.NURSE ---
While attempting to call report to the 2nd fl, family called out calling for help. Pt was visibly shaking and appeared to be having a seizure. Pt had pulled out PIV, new access placed to RAC (20g). Pt placed on 100% NRB, sat 100% at this time. Given Ativan 1mg IVP. Bed changed as it was saturated. Family updated on POC. Transitioned to 2LPM, sat 100% and pts shaking and jerking has subsided. Both bed rails up, PIV wrapped and secured.
--- NOTE | 2021-06-11 20:45 | PC.NURSE ---
PT ARRIVED TO FLOOR VIA STRETCHER FROM ED W/STAFF AT 2044
[2021-06-11 21:18] LABS: Troponin I < 0.01 ng/ml (0.00-0.034)
[2021-06-12] VITALS: BP 136/69; PULSE 58; PULSE 70; RESP 20; TEMP 37.1; O2SAT 100
[2021-06-12 00:17] LABS: Troponin I < 0.01 ng/ml (0.00-0.034)
[2021-06-12 04:00] VITALS: BP 124/57; PULSE 60; PULSE 83; RESP 17; TEMP 36.4; O2SAT 94
[2021-06-12 05:00] VITALS: BMI 27.7
[2021-06-12 05:50] LABS: POC Glucose,Bedside 226 (70-110)
--- NOTE | 2021-06-12 07:42 | PC.NURSE ---
pt was sedated upon arrival to floor. pt unable to answer questions for admission. pt still fatigued and sleeping. 2LNC was in use. o2 sat have remained stable and currently on RA at this time. seizure pads in place. no seizures noted since arrival to floor. cote in place and draining purulent urine. call light in reach. iv patent and infusing per order. vss. will continue to monitor
[2021-06-12 07:55] VITALS: PULSE 70
[2021-06-12 08:00] VITALS: BP 142/68; PULSE 66; RESP 16; TEMP 36.6; O2SAT 92
--- NOTE | 2021-06-12 08:48 | HMH.HP ---
*Admission Date: 06/11/21 *Chief complaint: Shaking and confusion *History of present illness: 86-year-old white female who is under hospice care at home, has had chronic issues with recurrent urinary tract infections and electrolyte disturbance. Had an episode of confusion and shaking at home, EMS was called because of a possible seizure and transported to the emergency department. She was found to be hypokalemic and found to have evidence of urinary tract infection and was admitted to hospital. This morning patient is essentially obtunded and minimally responsive to tactile stimuli. [facility] History I have reviewed the patient's past medical history: Yes Medical History: Reports:: Arrhythmia, Atrial Fibrillation, Congestive Heart Failure, Diabetes Mellitus Type 2, Hyperlipidemia, Hypertension, Peripheral Artery Disease Denies:: Cancer, Diabetes Mellitus Type 1, MRSA, Seizures *Have you ever received a pneumonia vaccine?: No *Have you received a flu vaccine this season?: No Other Medical History: Reports: Arthritis, Hypothyroidism Other Surgeries: Yes: No Previous Surgery, Angiogram Amputation: No Fractures: No - *Social History Smoking Status: Former smoker # Packs/Day (cigarettes): 1 Alcohol Intake: never *Occupational Status:: retired Housing: house Household Members: family *Travel in the last 8 weeks: None Family Hx:: Unable to obtain Review of Systems - Review of Systems Review of systems:: unable to obtain Meds Home Medications Medication Instructions Recorded Confirmed Type Levothyroxine Sodium 100 mcg PO DAILY 05/03/20 06/11/21 History [Levothyroxine 100mcg (0.1MG) Tab] Clopidogrel Bisulfate [Plavix 75mg 75 mg PO DAILY 03/19/21 06/11/21 History Tab] Pantoprazole Sodium 40 mg PO DAILY 03/19/21 06/11/21 History Rivaroxaban [Xarelto 15mg tablet] 15 mg PO DAILY 03/19/21 06/11/21 History dilTIAZem HCL [Cardizem ER 240mg 240 mg PO DAILY 03/19/21 06/11/21 History Capsule] acetaminophen 500 mg tablet 1,000 mg PO Q6H PRN #30 tab 04/17/21 06/11/21 Rx Metoprolol Succinate [Metoprolol 50 mg PO DAILY 04/24/21 06/11/21 History Succinate 50mg Tablet*] Escitalopram Oxalate 10 mg PO HS 06/01/21 06/11/21 History Gabapentin [Gabapentin 100mg Cap] 100 mg PO BID 06/01/21 06/11/21 History Insulin Degludec [Tresiba 4 units SQ DAILY #0 06/03/21 06/11/21 Rx Flextouch U-100] Morphine Sulfate/Pf [Morphine 5 5 mg PO Q4HP PRN 06/11/21 06/11/21 History mg/10 ml Vial] Allergies Allergy/AdvReac Type Severity Reaction Status Date / Time No Known Allergies Allergy Verified 04/17/21 14:34 Exam Vital signs and Labs for Last 24 Hours: Temp Pulse Resp BP Pulse Ox 98 F 66 16 142/68 H 92 L 06/12/21 08:00 06/12/21 08:00 06/12/21 08:00 06/12/21 08:00 06/12/21 08:00 Laboratory Results - last 24 hr 06/11/21 17:10: WBC 9.2, RBC 3.97 L, Hgb 12.4, Hct 37.9, MCV 95.4, MCH 31.2, MCHC 32.7, RDW 15.5, Plt Count 239, MPV 8.4, Neut % (Auto) 75.0, Lymph % (Auto) 15.5, [place] % (Auto) 8.3, Eos % (Auto) 0.8, Baso % (Auto) 0.5, Neut # (Auto) 6.9, Lymph # (Auto) 1.4, [place] # (Auto) 0.8, Eos # (Auto) 0.1, Baso # (Auto) 0.0 06/11/21 17:10: Sodium 136, Potassium 2.9 L*, Chloride 103, Carbon Dioxide 28, Anion Gap 7.9, BUN 7, Creatinine 0.60, Estimated Creat Clear 54, Estimated GFR 95, Est GFR ( Amer) 115, Glucose 331 H, Calcium 8.4, Total Bilirubin 0.3, AST 18, ALT 15, Alkaline Phosphatase 72, Troponin I < 0.01, Total Protein 5.8 L, Albumin 2.8 L, Globulin 3.0, Albumin/Globulin Ratio 0.9 L 06/11/21 17:52: Lactate 1.6 06/11/21 18:06: Urine Color Yellow, Urine Appearance Cloudy, Urine pH 5.5, Ur Specific [place] 1.020, Urine Protein 2+, Urine Glucose (UA) 1+, Urine Ketones Negative, Urine Blood 3+, Urine Nitrate Negative, Urine Bilirubin Negative, Urine Urobilinogen 0.2, Ur Leukocyte Esterase 2+ A, Urine RBC Tntc, Urine WBC Tntc, Ur Squamous Epith Cells None 06/11/21 19:15: SARS-CoV-2 (PCR) Not detected, Influenza A Untype
--- NOTE | 2021-06-12 10:32 | HMH.PHAINT ---
MEDICATION RECONCILIATION COMPLETED USING EXTERNAL PHARMACY FILL HISTORY, MD OFFICE VISIT LIST, AND DISCHARGE MEDICATION LIST FROM 06/04/21
--- NOTE | 2021-06-12 10:59 | HMH.DCSUM ---
General - General Admission date:: 06/11/21 Discharge date: 06/12/21 HPI HPI: 86-year-old white female who is under hospice care at home, has had chronic issues with recurrent urinary tract infections and electrolyte disturbance. Had an episode of confusion and shaking at home, EMS was called because of a possible seizure and transported to the emergency department. She was found to be hypokalemic and found to have evidence of urinary tract infection and was admitted to hospital. This morning patient is essentially obtunded and minimally responsive to tactile stimuli. Hospital Course Hospital Course: Patient was admitted to hospital, IV fluids were given. Patient was found to be hypokalemic and this was replaced orally after she this morning was awake and alert and much more functional and following commands. Family and hospice were consulted, they wish to have patient discharged back to home with hospice care. We will do this today, we will prescribe Omnicef twice daily for 1 week for her urinary tract infection, obviously change as cultures allow, and follow-up through hospice nursing visits at home. Other medications will remain as previously prescribed. Objective Vital signs: Temp Pulse Resp BP Pulse Ox 98 F 66 16 142/68 H 92 L 06/12/21 08:00 06/12/21 08:00 06/12/21 08:00 06/12/21 08:00 06/12/21 08:00 no acute distress, thin, cachectic - *Routine HEENT Exam Head: Present: normocephalic Eye: Present: EOMI, PERRL ENT: Present: mucous membranes moist - *Routine Neck Exam Present: supple - *Routine Respiratory Exam Present: CTA bilaterally - *Routine Cardiovascular Exam Present: RRR - *Routine Abdominal Exam Present: soft, normoactive bowel sounds. Absent: tenderness - *Routine Extremities Exam Absent: cyanosis, clubbing, edema - *Routine Skin Exam Present: warm. Absent: rash - *Routine Neurological Exam Present: alert More alert than on admission, extremely weak globally. No focal deficits. - Detailed Eye Exam Eyelids: Bilateral normal inspection Results Labs on day of discharge: Labs from last 24 hours 06/12/21 06/11/21 06/11/21 05:26 23:35 20:14 WBC RBC Hgb Hct MCV MCH MCHC RDW Plt Count MPV Neut % (Auto) Lymph % (Auto) [place] % (Auto) Eos % (Auto) Baso % (Auto) Neut # (Auto) Lymph # (Auto) [place] # (Auto) Eos # (Auto) Baso # (Auto) Sodium Potassium Chloride Carbon Dioxide Anion Gap BUN Creatinine Estimated Creat Clear Estimated GFR Est GFR ( Amer) Glucose POC Glucose 226 H Lactate Calcium Total Bilirubin AST ALT Alkaline Phosphatase Troponin I < 0.01 < 0.01 Total Protein Albumin Globulin Albumin/Globulin Ratio Urine Color Urine Appearance Urine pH Ur Specific [place] Urine Protein Urine Glucose (UA) Urine Ketones Urine Blood Urine Nitrate Urine Bilirubin Urine Urobilinogen Ur Leukocyte Esterase Urine RBC Urine WBC Ur Squamous Epith Cells SARS-CoV-2 (PCR) Influenza A Untype (PCR) Influenza Type B (PCR) 06/11/21 06/11/21 06/11/21 19:15 18:06 17:52 WBC RBC Hgb Hct MCV MCH MCHC RDW Plt Count MPV Neut % (Auto) Lymph % (Auto) [place] % (Auto) Eos % (Auto) Baso % (Auto) Neut # (Auto) Lymph # (Auto) [place] # (Auto) Eos # (Auto) Baso # (Auto) Sodium Potassium Chloride Carbon Dioxide Anion Gap BUN Creatinine Estimated Creat Clear Estimated GFR Est GFR ( Amer) Glucose POC Glucose Lactate 1.6 Calcium Total Bilirubin AST ALT Alkaline Phosphatase Troponin I Total Protein Albumin Globulin Albumin/Globulin Ratio Urine Color Yellow Urine Appearance Cloudy Urine pH 5.5 Ur
[2021-06-12 11:23] VITALS: BP 142/64; PULSE 78; RESP 20; TEMP 36.6; O2SAT 96
[2021-06-12 12:14] VITALS: PULSE 60
== END 2021-06-12 13:20 | disposition hospice, home (50) ==
LOC: ER 19:03 → 2ND 20:35
PROVIDERS: Admitting Provider Family Medicine; Emergency Provider Internal Medicine; PCP Internal Medicine Adolescent Medicine; Visit Provider Internal Medicine Adolescent Medicine
DX: N39.0 Urinary tract infection, site not specified (principal); Z20.822 Contact with and (suspected) exposure to COVID-19; Z79.02 Long term (current) use of antithrombotics/antiplatelets; E87.6 Hypokalemia; I48.91 Unspecified atrial fibrillation; I11.0 Hypertensive heart disease with heart failure; I50.9 Heart failure, unspecified; E11.9 Type 2 diabetes mellitus without complications; E03.9 Hypothyroidism, unspecified; Z79.01 Long term (current) use of anticoagulants; Z79.899 Other long term (current) drug therapy
CPT/HCPCS: G0378; 36415; 70450; 71045; 80053; 81001; 82962; 83605; 84484; 85025; 87040; 87086; 93005; 96374; 99283; U0003

== ENCOUNTER 2021-08-14 11:12 | Emergency (ER) | payer OTHER, MEDICARE, SELFPAY ==
[2021-08-14] VITALS (11 sets, daily range): BP systolic 108–147; BP diastolic 38–83; PULSE 80–98; RESP 18–20; TEMP 36.7; O2SAT 94–98; BMI 30.7
--- NOTE | 2021-08-14 11:07 | XR_ITS ---
PROCEDURE: XR ELBOW LT 2V CLINICAL INDICATION: pain COMPARISON: No exams were available for comparison FINDINGS: No fracture or dislocation. No lytic or blastic change. There is normal mineralization. The joint spaces are well-preserved. No significant degenerative/arthritic changes. No erosive changes evident. Other findings:None. IMPRESSION: No acute findings. Dictated by: Keith Hernandez MD 08/14/2021 13:07 Keith Hernandez MD in [place] 08/14/2021 13:07
--- NOTE | 2021-08-14 11:07 | XR_ITS ---
PROCEDURE INFORMATION: Exam: XR Left Forearm Exam date and time: 08/14/2021 11:07 AM Age: 86 years old Clinical indication: Lower or forearm; Patient HX: Patient is bed ridden family moved to transport patient and she has been complaining with left arm pain since TECHNIQUE: Imaging protocol: XR Left forearm. Views: 2 views. COMPARISON: No relevant prior studies available. FINDINGS: Bones/joints: Radius and ulna without appreciable fracture. The distal radius and the distal ulna unremarkable. Visualized portions of the carpus normal. The distal radial ulnar joint normal. Visualized portions without gross deformity. Degenerative changes within the wrist. Degenerative changes within the olecranon IMPRESSION: No acute process.
--- NOTE | 2021-08-14 11:07 | XR_ITS ---
PROCEDURE INFORMATION: Exam: XR Left Humerus Exam date and time: 08/14/2021 11:07 AM Age: 86 years old Clinical indication: Upper arm and shoulder; Left; Patient HX: Patient is bed ridden and family moved to transport and she has been complaining with arm pain since TECHNIQUE: Imaging protocol: XR Left humerus. Views: 2 or more views. COMPARISON: CR XR CHEST PORTABLE 06/11/2021 5:18 PM FINDINGS: Bones/joints: Humerus is unremarkable. Calcification in the region of the supraspinatus tendon/subacromial region, likely calcific tendinosis. Soft tissues: Normal. IMPRESSION: 1. No fracture. 2. Humerus is unremarkable.
--- NOTE | 2021-08-14 11:07 | XR_ITS ---
PROCEDURE: XR WRIST LT 2V CLINICAL INDICATION: pain COMPARISON: No exams were available for comparison FINDINGS: No fracture or dislocation. No lytic or blastic change. There is normal mineralization. There are mild osteoarthritic changes at the radiocarpal joint with chondrocalcinosis of the triangular fibrocartilage. There is mild prominence of the scapholunate space with chondrocalcinosis of the scapholunate ligament. Osteoarthritic changes are present at the 1st carpal metacarpal joint. Other findings:None. IMPRESSION: No acute fracture. Osteoarthritic changes with chondrocalcinosis. Mild prominence of the scapholunate space nonspecific but could be seen with scapholunate injury Dictated by: Keith Hernandez MD 08/14/2021 11:52 Keith Hernandez MD in [place] 08/14/2021 11:52
--- NOTE | 2021-08-14 11:09 | HMH.EDGENADL ---
ED Disposition Clinical Impression: Musculoskeletal pain of left upper extremity UTI (urinary tract infection) Qualifiers: Urinary tract infection type: acute cystitis Hematuria presence: with hematuria Qualified Code(s): N30.01 - Acute cystitis with hematuria Disposition: Home, Self-Care Condition on Discharge: Good Additional Instructions: No acute fracture. Urinalysis consistent with UTI. We replaced her Mcneal. Antibiotics as directed. PCP follow-up in 2 to 3 days. Prescriptions: Amoxicillin/Potassium Clav [Augmentin 875-125 Tablet] 1 tab PO Q12H #10 tab Transmission Status: Pending to [id number] Referrals: Provider,Referral, [Primary Care Provider] - 3 days Time of Disposition: 17:47 - Critical Care Critical Care Time: No Attestation: On , the high probability of a clinically significant, sudden or life threatening deterioration of the following system(s) required my full and direct attention, intervention and personal management. The time I documented below is in addition to time spent performing reported procedures but includes the following listed in this critical care notation. Medical Decision Making - Medical Records Medical records reviewed: Yes: I reviewed the patient's medical records. - Eddie Inquiry Pt receiving controlled substance: No Vital Signs: 08/14/21 11:02 08/14/21 12:01 08/14/21 12:31 Temperature 98.1 F Temperature Source Oral Pulse Rate 81 88 Pulse Rate [Right Radial] 98 H Respiratory Rate 18 Blood Pressure 142/55 H 110/83 Blood Pressure [Right Arm] 147/67 H Blood Pressure Mean 84 91 Blood Pressure Mean [Right Arm] 93 Blood Pressure Source [Right Arm] Automatic Cuff Blood Pressure Position [Right Arm] Sitting 02 Sat by Pulse Oximetry 96 95 94 L Oxygen Delivery Method Room Air 08/14/21 13:00 08/14/21 13:31 08/14/21 14:01 Temperature Temperature Source Pulse Rate 81 80 88 Pulse Rate [Right Radial] Respiratory Rate Blood Pressure 130/62 136/46 L 128/47 L Blood Pressure [Right Arm] Blood Pressure Mean 84 76 74 Blood Pressure Mean [Right Arm] Blood Pressure Source [Right Arm] Blood Pressure Position [Right Arm] 02 Sat by Pulse Oximetry 95 95 95 Oxygen Delivery Method 08/14/21 14:31 08/14/21 15:01 08/14/21 15:30 Temperature Temperature Source Pulse Rate 81 Pulse Rate [Right Radial] Respiratory Rate Blood Pressure 124/38 L 109/46 L 108/69 L Blood Pressure [Right Arm] Blood Pressure Mean 66 67 80 Blood Pressure Mean [Right Arm] Blood Pressure Source [Right Arm] Blood Pressure Position [Right Arm] 02 Sat by Pulse Oximetry 95 96 97 Oxygen Delivery Method 08/14/21 16:01 Temperature Temperature Source Pulse Rate Pulse Rate [Right Radial] Respiratory Rate Blood Pressure 144/56 H Blood Pressure [Right Arm] Blood Pressure Mean 73 Blood Pressure Mean [Right Arm] Blood Pressure Source [Right Arm] Blood Pressure Position [Right Arm] 02 Sat by Pulse Oximetry 98 Oxygen Delivery Method - Lab Data Lab results reviewed: Yes: I reviewed the patient's lab results. Lab Results 08/14/21 16:30: Urine Color Red, Urine Appearance Cloudy, Urine pH 6.0, Ur Specific [place] 1.010, Urine Protein 1+, Urine Glucose (UA) Negative, Urine Ketones Negative, Urine Blood 3+, Urine Nitrate Negative, Urine Bilirubin 1+ A, Urine Urobilinogen 1.0, Ur Leukocyte Esterase 3+ A, Urine RBC Tntc, Urine WBC Tntc, Ur Squamous Epith Cells None, Urine Bacteria 1+ Orders (Tests/Meds): ED MEDICATIONS Discontinued Medications Generic Name Dose Route Start Last Admin Trade Name Freq PRN Reason Stop Dose Admin Ceftriaxone Sodium 1 gm 08/14/21 17:47 Ceftriaxone 1gm Vial IM 08/14/21 17:48 ONCE ONE Lidocaine HCl 0 ml 08/14/21 17:47 Lidocaine 1% 5ml Pf Vial IM 08/14/21 17:48 ONCE ONE ORDERS Category Date Time Status Urine Culture Stat Micro 08/14/21 16
[2021-08-14 16:49] LABS: Microscopic, Urine URINE MICROSCOPIC (MICROSCOPIC)
[2021-08-14 16:59] LABS: Appearance,Urine CLOUDY (Clear); Blood, Urine 3+ (Negative); Color,Urine RED (Yellow); Glucose,Urine (UA) Negative (Negative); Ketones,Urine Negative (Negative); Leukocyte Esterase,Urine 3+ (Negative); Nitrate,Urine Negative (Negative); Protein,Urine 1+ (Negative)
[2021-08-14 17:14] LABS: Bilirubin,Urine 1+ (Negative)
[2021-08-14 17:15] LABS: Bacteria,Urine 1+ /lpf; RBC,Urine TNTC #/hpf (0-3); WBC,Urine TNTC #/hpf (0-3)
== END 2021-08-14 19:45 | disposition home or self-care (01) ==
PROVIDERS: Emergency Provider Family Medicine
DX: N30.01 Acute cystitis with hematuria (principal); M25.511 Pain in right shoulder; I10 Essential (primary) hypertension; E78.5 Hyperlipidemia, unspecified; E11.9 Type 2 diabetes mellitus without complications; E03.9 Hypothyroidism, unspecified; I48.91 Unspecified atrial fibrillation; Z87.891 Personal history of nicotine dependence; Z79.899 Other long term (current) drug therapy
CPT/HCPCS: 73060; 73070; 73090; 73100; 81001; 87086; 96372; 99282

== ENCOUNTER 2021-09-24 20:14 | Inpatient (IN) | payer OTHER, MEDICARE, SELFPAY ==
[2021-09-24 20:14] VITALS: BP 172/112; PULSE 84; RESP 16; TEMP 36.8; O2SAT 96; BMI 27.4
[2021-09-24 20:29] LABS: Basophils # 0.1 K/mm3 (0-0.2); Basophils % 0.5 % (0.1-2.0); Eosinophils # 0.1 K/mm3 (0.0-0.4); Eosinophils % 1.2 % (0.1-12.0); Hematocrit 36.1 % (37.0-47.0); Hemoglobin 11.7 g/dL (12.2-16.2); Lymphocytes # 1.3 K/mm3 (0.7-4.5); Lymphocytes % 11.8 % (10-50); Mean Corpuscular HGB Conc 32.4 g/dL (31.8-35.4); Mean Corpuscular Hemoglobin 31.3 pg (27.0-31.2); Mean Corpuscular Volume 96.6 fl (81-99); Mean Platelet Volume 8.5 fl (7.4-10.4); Monocytes # 0.4 K/mm3 (0.1-1.0); Neutrophils # 9.2 K/mm3 (1.8-7.8); Neutrophils % 82.6 % (37.0-80.0); Platelet Count 357 K/mm3 (142-424); Red Blood Count 3.74 M/mm3 (4.20-5.40); Red Cell Distribution Width 14.2 % (11.5-17.5); White Blood Count 11.1 K/mm3 (4.8-10.8)
[2021-09-24 20:31] VITALS: BP 174/81; PULSE 105; O2SAT 93
[2021-09-24 20:32] LABS: Chloride 102 mmol/L (98-107); Sodium 138 mmol/L (136-145)
[2021-09-24 20:34] LABS: Alanine Aminotransferase 10 U/L (12-78); Aspartate Amino Transferase 20 U/L (14-36); Blood Urea Nitrogen 13 mg/dl (7-17); Creatinine Clearance Estimated 48 mL/min (50-200); Estimated Glomerular Filt Rate 53 ml/min (>60); GFR (African American) 64 ML/MIN (>60); Potassium 2.9 mmoL/L (3.5-5.1)
[2021-09-24 20:35] LABS: Albumin Level 3.1 g/dl (3.5-5.0); Albumin/Globulin Ratio 0.9 (1.1-1.8); Alkaline Phosphatase 81 U/L (38-126); Anion Gap 7.9 mEq/L (5-15); Bilirubin,Total 0.4 mg/dl (0.2-1.3); Carbon Dioxide 31 mmol/L (22.0-30.0); Globulin 3.5 g/dL (1.3-3.2); Glucose 152 mg/dl (74-100); Total Protein,Serum 6.6 g/dl (6.3-8.2)
--- NOTE | 2021-09-24 20:38 | CT_ITS ---
PROCEDURE INFORMATION: Exam: CT Cervical Spine Without Contrast Exam date and time: 09/24/2021 8:38 PM Age: 86 years old Clinical indication: Injury or trauma; Fall; Blunt trauma; Additional info: Fall, AMS TECHNIQUE: Imaging protocol: Computed tomography images of the cervical spine without contrast. Radiation optimization: All CT scans at this facility use at least one of these dose optimization techniques: automated exposure control; mA and/or kV adjustment per patient size (includes targeted exams where dose is matched to clinical indication); or iterative reconstruction. COMPARISON: CT CERVICAL SPINE WO CON 03/08/2021 9:38 PM FINDINGS: Bones/joints: No acute fracture. Facets are normally aligned. Cortical step-off in the 1st and 2nd ribs on the left, suspected be related to motion artifact. Discs/Spinal canal/Neural foramina: Multilevel degenerative disc disease, [id number], most notable at C6-C7. Multilevel degenerative facet arthropathy, right greater than left at C2-C3 through C5-C6. No significant central canal stenosis. Mild degenerative neural foraminal narrowing on the right at C3-C4, C4-C5, C5-C6 and C6-C7. Lungs: Bilateral pleural effusions. Soft tissues: No acute findings. IMPRESSION: 1. No acute cervical fracture. 2. Multilevel degenerative changes throughout the cervical spine with associated mild neural foraminal narrowing on the right. 3. Cortical step-off of the 1st and 2nd ribs on the left suspected to be related to motion artifact. Correlate for point tenderness.
--- NOTE | 2021-09-24 20:38 | XR_ITS ---
PROCEDURE INFORMATION: Exam: XR Pelvis Exam date and time: 09/24/2021 8:38 PM Age: 86 years old Clinical indication: Injury or trauma; Fall; Blunt trauma (contusions or hematomas); Bilateral; Pelvic region; Additional info: Fall, pain in le TECHNIQUE: Imaging protocol: XR pelvis. Views: 1 or 2 view. COMPARISON: CT ABDOMEN PELVIS W CON 09/24/2021 10:47 PM FINDINGS: Bones/joints: No acute fracture, dislocation or osseous destructive process. Degenerative changes in the visualized lumbar spine. Soft tissues: No acute findings or radiopaque foreign body. Catheter in the urinary bladder. IMPRESSION: No acute findings.
--- NOTE | 2021-09-24 20:38 | XR_ITS ---
PROCEDURE INFORMATION: Exam: XR Chest Exam date and time: 09/24/2021 8:38 PM Age: 86 years old Clinical indication: Injury or trauma; Fall; Blunt trauma (contusions or hematomas); Additional info: Chest pain TECHNIQUE: Imaging protocol: XR of the chest. Views: 1 view. COMPARISON: CT ANGIO CHEST 09/24/2021 10:44 PM FINDINGS: Lungs: Right basilar atelectasis versus airspace disease. Pleural spaces: Moderate right-sided pleural effusion. Heart/Mediastinum: Cardiomegaly. Central pulmonary artery prominence. Bones/joints: No acute findings. IMPRESSION: 1. Right-sided pleural effusion with suspected atelectasis or possibly airspace disease. 2. Cardiomegaly with central pulmonary artery prominence.
--- NOTE | 2021-09-24 20:38 | CT_ITS ---
PROCEDURE INFORMATION: Exam: CT Head Without Contrast Exam date and time: 09/24/2021 8:38 PM Age: 86 years old Clinical indication: Injury or trauma; Fall; Blunt trauma (contusions or hematomas); Without loss of consciousness; Additional info: Fall, AMS TECHNIQUE: Imaging protocol: Computed tomography of the head without contrast. Radiation optimization: All CT scans at this facility use at least one of these dose optimization techniques: automated exposure control; mA and/or kV adjustment per patient size (includes targeted exams where dose is matched to clinical indication); or iterative reconstruction. COMPARISON: CT HEAD/BRAIN WO CON 06/11/2021 5:12 PM FINDINGS: Brain: Age appropriate atrophy and small vessel ischemic change. No evidence of intracranial hemorrhage, mass effect, midline shift or extra-axial fluid collections. Midline structures are normal. Das-white matter differentiation is normal. Cerebral ventricles: No ventriculomegaly. Paranasal sinuses: Mucosal thickening in the ethmoid and maxillary sinuses. Mastoid air cells: Visualized mastoid air cells are well aerated. Vasculature: Carotid atherosclerotic calcification. Bones/joints: Unremarkable. No acute fracture. Soft tissues: Unremarkable. IMPRESSION: No acute intracranial injury.
--- NOTE | 2021-09-24 20:53 | PC.NURSE ---
MD Hackett notified of critical potassium @[id number]
[2021-09-24 21:00] VITALS: BP 163/93; O2SAT 94
[2021-09-24 21:06] LABS: Lipase 46 U/L (23-300)
[2021-09-24 21:07] LABS: INR 1.37 (0.9-1.1); Lactic Acid 0.9 mmol/L (0.7-2.1); Prothrombin Time 15.1 seconds (10.1-12.5)
[2021-09-24 21:10] LABS: Microscopic, Urine URINE MICROSCOPIC (MICROSCOPIC)
--- NOTE | 2021-09-24 21:10 | CT_ITS ---
PROCEDURE INFORMATION: Exam: CT Abdomen And Pelvis With Contrast Exam date and time: 09/24/2021 9:10 PM Age: 86 years old Clinical indication: Injury or trauma; Fall; Blunt; Generalized; Injury date: 09/24/2021; Additional info: Abdominal pain, AMS TECHNIQUE: Imaging protocol: Computed tomography of the abdomen and pelvis with contrast. Radiation optimization: All CT scans at this facility use at least one of these dose optimization techniques: automated exposure control; mA and/or kV adjustment per patient size (includes targeted exams where dose is matched to clinical indication); or iterative reconstruction. Contrast material: ISOVUE; Contrast volume: 75 ml; Contrast route: IV; COMPARISON: CT ABDOMEN PELVIS WO CON 06/01/2021 4:15 PM FINDINGS: Pleural spaces: Bilateral pleural effusions with associated compressive atelectasis. Heart: Cardiomegaly. Liver: No acute findings. No mass. Gallbladder and bile ducts: Small layering gallstones without associated acute abnormality. Pancreas: No acute findings, focal abnormality or ductal dilation. Spleen: Punctate calcifications in the spleen likely related to chronic granulomatous disease. Adrenal glands: Mild diffuse thickening of the adrenal glands without focal mass. Kidneys and ureters: Left kidney is not seen, presumably surgically absent. Persistent at least moderate right-sided hydronephrosis with hydroureter and calcifications within the mid ureter wall but no obstructing calculus identified. This is similar to the prior exam Patchy enhancement along the posterior wall of the right kidney is nonspecific but may be related to pyelonephritis. No enhancing mass. Simple appearing exophytic exophytic cysts in the right kidney, largest measuring 1.8 cm. Stomach and bowel: Diverticulosis without associated inflammatory changes to suggest acute diverticulitis. Appendix: No evidence of appendicitis. Intraperitoneal space: No free air. No significant fluid collection. Vasculature: Atherosclerotic nonaneurysmal aorta and iliac arteries. Lymph nodes: No pathologically enlarged lymph nodes. Urinary bladder: Mcneal catheter in the urinary bladder. Reproductive: Status post hysterectomy. Bones/joints: No acute osseous findings. Multilevel degenerative changes in the spine. Diffuse osteopenia. Levocurvature of the lumbar spine. Soft tissues: Diffuse soft tissue anasarca. IMPRESSION: 1. Bilateral pleural effusions with associated compressive atelectasis, soft tissue anasarca and cardiomegaly. Consider cardiac decompensation. 2. Hydronephrosis/hydroureter on the right, similar to the prior exam with nonspecific subtle patchy renal parenchymal enhancement. Consider urinary tract infection/pyelonephritis in the appropriate clinical circumstance. Left kidney is absent. 3. Cholelithiasis. 4. Diverticulosis. 5. Other chronic changes as described. COMMENTS: Consistent with the [employer]'s Incidental Findings Committee white paper (J Am Mykel Radiol 2018): Any incidental renal lesion less than 1 cm or classified as too small to characterize, or any incidental cystic renal lesion characterized as simple-appearing, is likely benign. No follow-up imaging is recommended for these lesions per consensus recommendations based on imaging criteria.
--- NOTE | 2021-09-24 21:10 | CT_ITS ---
PROCEDURE INFORMATION: Exam: CTA Chest With Contrast Exam date and time: 09/24/2021 9:10 PM Age: 86 years old Clinical indication: Injury or trauma; Fall; Blunt trauma (contusions or hematomas); Additional info: Chest pain TECHNIQUE: Imaging protocol: Computed tomographic angiography of the chest with contrast. 3D rendering (Not supervised by radiologist): MIP and/or 3D reconstructed images were created by the technologist. Radiation optimization: All CT scans at this facility use at least one of these dose optimization techniques: automated exposure control; mA and/or kV adjustment per patient size (includes targeted exams where dose is matched to clinical indication); or iterative reconstruction. Contrast material: ISOVUE 370; Contrast volume: 70 ml; Contrast route: INTRAVENOUS (IV); COMPARISON: CR XR CHEST PORTABLE 06/11/2021 5:18 PM FINDINGS: Pulmonary arteries: Enlargement of the main pulmonary arteries without evidence of filling defect to suggest pulmonary embolus. Aorta: No aortic aneurysm. No aortic dissection. Lungs: Compressive atelectasis in the bilateral lower lobes. No acute appearing consolidation or airspace disease. Scattered noncalcified pulmonary nodules are seen bilaterally, measuring up to 4 mm in the right upper lobe, 3 mm in the left upper lobe and 4 mm in the left lower lobe. Pleural spaces: Moderate-sized bilateral pleural effusions, right greater than left. Heart: Cardiomegaly with atrial prominence. Lymph nodes: No pathologically enlarged lymph nodes. Bones/joints: No acute osseous findings. Soft tissues: Diffuse soft tissue anasarca. IMPRESSION: 1. Bilateral moderate pulmonary effusions with associated compressive atelectasis, right greater than left. 2. No evidence of pulmonary embolus, however the pulmonary arteries are prominent which can be seen in pulmonary hypertension. 3. Cardiomegaly with enlargement of the atria suggestive of cardiac decompensation. 4. Diffuse soft tissue anasarca. 5. Small bilateral pulmonary nodules.For patients at low risk (minimal or absent history of smoking and of other known risk factors), no routine follow-up is indicated. For patients at high risk (history of smoking or of other known risk factors), consider optional CT Chest at 12 months. (Reference: Brad) REFERENCES: Brad Browne et al. Guidelines for Management of Incidental Pulmonary Nodules Detected on CT Images: From the [employer]ischner Society 2017. Radiology. 2017;284(1):228-243.
[2021-09-24 21:16] LABS: Appearance,Urine CLOUDY (Clear); Bilirubin,Urine Negative (Negative); Blood, Urine 3+ (Negative); Color,Urine YELLOW (Yellow); Glucose,Urine (UA) Negative (Negative); Ketones,Urine Negative (Negative); Leukocyte Esterase,Urine 3+ (Negative); Nitrate,Urine POSITIVE (Negative); Protein,Urine TRACE (Negative); Specific Gravity, Urine 1.015 (1.005-1.030); Urobilinogen,Urine 0.2 EU/dl (0.2)
[2021-09-24 21:21] LABS: RBC,Urine 50-100 #/hpf (0-3); WBC,Urine 50-100 #/hpf (0-3)
[2021-09-24 21:30] VITALS: BP 154/100; O2SAT 95
[2021-09-24 21:34] LABS: Troponin I < 0.01 ng/ml (0.00-0.034)
[2021-09-24 22:01] VITALS: BP 161/92; O2SAT 94
[2021-09-24 23:35] VITALS: BP 198/99; PULSE 92; RESP 22; O2SAT 99
[2021-09-24 23:40] LABS: Coronavirus 19, PCR Not Detected (NotDetected); Influenza A, PCR Not Detected (NotDetected); Influenza B, PCR Not Detected (NotDetected)
[2021-09-24 23:48] LABS: Troponin I < 0.01 ng/ml (0.00-0.034)
[2021-09-25] VITALS (8 sets, daily range): BP systolic 152–179; BP diastolic 74–98; PULSE 102–120; RESP 17–22; TEMP 36.7–37.7; O2SAT 86–100; BMI 27.3; BMI 27.4
--- NOTE | 2021-09-25 00:26 | HMH.EDGENADL ---
ED Disposition Clinical Impression: Hypokalemia, Pyelonephritis Disposition: Admitted As Inpatient Condition on Discharge: Fair Instructions: DI for Acute Abdominal Pain Referrals: Yahir Patrick MD [Primary Care Provider] - - Critical Care Critical Care Time: No Attestation: On 09/24/21, the high probability of a clinically significant, sudden or life threatening deterioration of the following system(s) required my full and direct attention, intervention and personal management. The time I documented below is in addition to time spent performing reported procedures but includes the following listed in this critical care notation. Medical Decision Making - Medical Records Medical records reviewed: Yes: I reviewed the patient's medical records. - Eddie Inquiry Pt receiving controlled substance: No Vital Signs: 09/24/21 20:14 09/24/21 20:31 09/24/21 21:00 Temperature 98.2 F Temperature Source Oral Pulse Rate 105 H Pulse Rate [Right] 84 Respiratory Rate 16 Blood Pressure 174/81 H 163/93 H Blood Pressure [Right Arm] 172/112 H Blood Pressure Mean 116 Blood Pressure Mean [Right Arm] 132 02 Sat by Pulse Oximetry 96 93 L 94 L Oxygen Delivery Method Room Air Room Air 09/24/21 21:30 09/24/21 22:01 Temperature Temperature Source Pulse Rate Pulse Rate [Right] Respiratory Rate Blood Pressure 154/100 H 161/92 H Blood Pressure [Right Arm] Blood Pressure Mean 110 118 Blood Pressure Mean [Right Arm] 02 Sat by Pulse Oximetry 95 94 L Oxygen Delivery Method Room Air Room Air - Lab Data Lab results reviewed: Yes: I reviewed the patient's lab results. Lab Results 09/24/21 20:15: WBC 11.1 H, RBC 3.74 L, Hgb 11.7 L, Hct 36.1 L, MCV 96.6, MCH 31.3 H, MCHC 32.4, RDW 14.2, Plt Count 357, MPV 8.5, Neut % (Auto) 82.6 H, Lymph % (Auto) 11.8, Morris % (Auto) 4.0, Eos % (Auto) 1.2, Baso % (Auto) 0.5, Neut # (Auto) 9.2 H, Lymph # (Auto) 1.3, Morris # (Auto) 0.4, Eos # (Auto) 0.1, Baso # (Auto) 0.1 09/24/21 20:15: Sodium 138, Potassium 2.9 L*, Chloride 102, Carbon Dioxide 31 H, Anion Gap 7.9, BUN 13, Creatinine 1.00, Estimated Creat Clear 48, Estimated GFR 53 L, Est GFR ( Amer) 64, Glucose 152 H, Calcium 10.0, Total Bilirubin 0.4, AST 20, ALT 10 L, Alkaline Phosphatase 81, Total Protein 6.6, Albumin 3.1 L, Globulin 3.5 H, Albumin/Globulin Ratio 0.9 L 09/24/21 20:15: Lactate 0.9 09/24/21 20:15: PT 15.1 H, INR 1.37 H 09/24/21 20:15: Troponin I < 0.01, Lipase 46, TSH 3.80, Thyroxine (T4) 10.0 09/24/21 21:03: Urine Color Yellow, Urine Appearance Cloudy, Urine pH 7.0, Ur Specific [place] 1.015, Urine Protein Trace, Urine Glucose (UA) Negative, Urine Ketones Negative, Urine Blood 3+, Urine Nitrate Positive, Urine Bilirubin Negative, Urine Urobilinogen 0.2, Ur Leukocyte Esterase 3+ A, Urine RBC 50-100, Urine WBC 50-100 09/24/21 23:22: Troponin I < 0.01 09/24/21 23:32: SARS-CoV-2 (PCR) Not detected, Influenza A Untype (PCR) Not detected, Influenza Type B (PCR) Not detected Result diagrams: 09/24/21 20:15 09/24/21 20:15 Orders (Tests/Meds): ED MEDICATIONS Generic Name Dose Route Start Last Admin Trade Name Freq PRN Reason Stop Dose Admin Ceftriaxone Sodium 1 gm/ 50 mls @ 100 mls/hr 09/24/21 23:15 09/24/21 23:16 Sodium Chloride IV 10/08/21 23:14 100 mls/hr Q24H BÁRBARA Administration Potassium Chloride/Water 100 mls @ 100 mls/hr 09/24/21 23:15 09/24/21 23:51 Potassium Chloride 10meq/100ml Ivpb IV 09/25/21 02:14 100 mls/hr Q1H BÁRBARA Administration Discontinued Medications Generic Name Dose Route Start Last Admin Trade Name Freq PRN Reason Stop Dose Admin Iopamidol 70 ml 09/24/21 22:53 09/24/21 22:55 Iopamidol-370 (76%);100ml Bottle IV 09/24/21 22:54 70 ml ONCE ONE Administration Sodium Chloride 40 ml 09/24/21 22:53 09/24/21 22:55 0.9 % Sodium Chloride 50 Ml Vial IV 09/24/21 22:54 40 ml ONCE ONE Administration Sodium Chloride 10 ml 09/24
--- NOTE | 2021-09-25 00:27 | PC.NURSE ---
s/w Dr. Cortes for possible admission.
--- NOTE | 2021-09-25 00:42 | PC.NURSE ---
House notified for bed assignment
--- NOTE | 2021-09-25 01:23 | PC.NURSE ---
called report to Nevin Sauceda RN
--- NOTE | 2021-09-25 01:37 | PC.NURSE ---
updated son on POC and that pt will be admitted
--- NOTE | 2021-09-25 02:26 | PC.NURSE ---
patient up to floor via stretcher @ this time.
--- NOTE | 2021-09-25 06:24 | PC.NURSE ---
Pt has been alert to only person t/o shift. Poor historian. Pt has continuously taken off nasal cannula and taken out IVs and dropped them in the floor. Pt has been reminded importance of O2 and IV access. Pt has been Afib on tele. Currently on 2 L nc with sats in mid 90s.
[2021-09-25 07:28] LABS: Basophils % 0.5 % (0.1-2.0); Eosinophils % 0.4 % (0.1-12.0); Hematocrit 30.5 % (37.0-47.0); Lymphocytes # 1.5 K/mm3 (0.7-4.5); Mean Corpuscular HGB Conc 33.3 g/dL (31.8-35.4); Mean Corpuscular Hemoglobin 31.5 pg (27.0-31.2); Mean Corpuscular Volume 94.7 fl (81-99); Mean Platelet Volume 8.6 fl (7.4-10.4); Monocytes # 0.4 K/mm3 (0.1-1.0); Monocytes % 5.4 % (1.7-9.3); Neutrophils % 74.7 % (37.0-80.0); Platelet Count 278 K/mm3 (142-424); Red Blood Count 3.22 M/mm3 (4.20-5.40); Red Cell Distribution Width 14.2 % (11.5-17.5)
--- NOTE | 2021-09-25 07:28 | HMH.PHAVTE ---
[facility] VTE Monitoring - Patient Demographics Admission date: 09/24/21 Report Date: 09/25/21 Time: 07:28 Allergies/Adverse Reactions: Patient Allergies No Known Allergies Allergy (Verified 04/17/21 14:34) Height: 1.63 m Weight: 72.575 kg Patient Problems: Current Active Problems UTI (urinary tract infection) (Acute) Hypokalemia (Acute) Pyelonephritis (Acute) - VTE Risk Labs: VTE Related Lab Results Hgb 11.7 g/dL (12.2-16.2) L 09/24/21 20:15 Hct 36.1 % (37.0-47.0) L 09/24/21 20:15 Plt Count 357 K/mm3 (142-424) 09/24/21 20:15 PT 15.1 seconds (10.1-12.5) H 09/24/21 20:15 INR 1.37 (0.9-1.1) H 09/24/21 20:15 BUN 13 mg/dl (7-17) 09/24/21 20:15 Creatinine 1.00 mg/dl (0.52-1.04) 09/24/21 20:15 Estimated Creat Clear 48 mL/min (50-200) 09/24/21 20:15 Clinical Trial Participant: No - Prophylaxis VTE Prophylaxis Ordered?: Yes Types of VTE Prophylaxis: TEDS Knee High
[2021-09-25 07:34] LABS: Anion Gap 8.2 mEq/L (5-15); Blood Urea Nitrogen 14 mg/dl (7-17); Calcium 10.2 mg/dl (8.4-10.2); Carbon Dioxide 30 mmol/L (22.0-30.0); Chloride 103 mmol/L (98-107); Creatinine Clearance Estimated 48 mL/min (50-200); Estimated Glomerular Filt Rate 53 ml/min (>60); GFR (African American) 64 ML/MIN (>60); Glucose 123 mg/dl (74-100); Potassium 3.2 mmoL/L (3.5-5.1); Sodium 138 mmol/L (136-145)
[2021-09-25 07:50] LABS: Hemoglobin 10.1 g/dL (12.2-16.2)
--- NOTE | 2021-09-25 08:19 | HMH.HP ---
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 I am unsure what her baseline status is and there is no family at bedside. Patient is not a reliable historian. Differential diagnosis includes, but is not limited to, trauma, underlying infection such as COVID-19, pneumonia, intra-abdominal infection, urinary tract infection, pyelonephritis, sepsis or bacteremia. On initial evaluation, patient is hemodynamically stable and afebrile. Physical exam reveals a soft and nontender abdomen. No trauma noted to extremities and no abrasions, lacerations to face, neck, chest. Patient was evaluated with broad work-up which showed elevated white blood cell count of 11, hypokalemia and UA positive for infection. Negative troponin without a delta. Patient was given 1 g of ceftriaxone and potassium was replaced in the emergency department. In addition, CT imaging showed concern for pyelonephritis and bilateral pleural effusions. Given patient's complicated medical history, she was admitted for inpatient treatment with IV antibiotics. Above note per ER. Patient has been on hospice care at home recently, has been in and out of nursing homes over the past several years because of recurrent UTI/pyelonephritis/history of pneumonias. Patient this morning is awake, states that she feels okay but has some back pain [facility] History I have reviewed the patient's past medical history: Yes Medical History: Reports:: Arrhythmia, Atrial Fibrillation, Congestive Heart Failure, Diabetes Mellitus Type 2 (Family gives insulin if sugar over 250), Hyperlipidemia, Hypertension, Peripheral Artery Disease Denies:: Cancer, Diabetes Mellitus Type 1, MRSA, Seizures *Have you ever received a pneumonia vaccine?: No *Have you received a flu vaccine this season?: No Other Medical History: Reports: Arthritis, Hypothyroidism Laterality Cases: Left: Other Other Surgeries: Yes: No Previous Surgery, Angiogram Amputation: No Fractures: No - *Social History Smoking Status: Former smoker # Packs/Day (cigarettes): 1 Alcohol Intake: never *Occupational Status:: unemployed Housing: house Household Members: family *Travel in the last 8 weeks: None Family Hx:: Unable to obtain Review of Systems - Review of Systems Review of systems:: unable to obtain Meds Home Medications Medication Instructions Recorded Confirmed Type Levothyroxine Sodium 100 mcg PO DAILY 05/03/20 09/24/21 History [Levothyroxine 100mcg (0.1MG) Tab] Clopidogrel Bisulfate [Plavix 75mg 75 mg PO DAILY 03/19/21 09/24/21 History Tab] Pantoprazole Sodium 40 mg PO DAILY 03/19/21 09/24/21 History Rivaroxaban [Xarelto 15mg tablet] 15 mg PO DAILY 03/19/21 09/24/21 History Escitalopram Oxalate 10 mg PO HS 06/01/21 09/24/21 History Gabapentin [Gabapentin 100mg Cap] 100 mg PO BID 06/01/21 09/24/21 History Morphine Sulfate/Pf [Morphine 5 5 mg PO Q2HP PRN 06/11/21 09/24/21 History mg/10 ml Vial] Insulin Degludec [Tresiba 6 units SQ DAILY 09/24/21 09/24/21 History Flextouch U-100] LORazepam [Lorazepam 0.5mg Tablet] 0.5 mg PO Q6 09/24/21 09/24/21 History fentaNYL [fentaNYL 25mcg/patch] 25 mcg TD Q72H 09/24/21 09/24/21 History Metoprolol Succinate [Metoprolol 50 mg PO DAILY 09/25/21 09/25/21 History Succinate 50mg Tablet*] dilTIAZem HCl [Diltiazem 240mg 240 mg PO DAILY 09/25/21 09/25/21 History 24Hr ER Cap] Allergies Allergy/AdvReac Type Severity Reaction Status Date / Time No Known Allergies Allergy Verified 04/17/21 14:34 Exam Vital signs and Labs for Last 24 Hours: Temp Pulse Resp BP Pulse Ox 98.9 F 102 H 18 166/78 H 96 09/25/21 04:00 09/25/21 04:00 09/25/21 04:00 09/25/21 04:00 09/25/21 04:00 Laboratory Results
--- NOTE | 2021-09-25 09:53 | HMH.PHAINT ---
Addendum entered and electronically signed by Bailee Kapadia PharmD 09/25/21 10:52: also used list from dr chaudhary' office Original Note: Verified home medication list with [facility]
--- NOTE | 2021-09-25 11:12 | SW/DCPLANNER ---
Addendum entered by Laverne Fairchild 09/26/21 09:40: CALLED THE DAUGHTEREDIL TODAY AND SPOKE WITH HER REGARDING DISCHARGE PLANS FOR THIS PATIENT. DAUGHTER STATED SHE STAYS WITH HER MOM AROUND THE CLOCK AND SHE IS TO RETURN BACK HOME WHEN MEDICALLY READY TO DISCHARGE AND TO CONTINUE WITH HOSPICE SERVICES.. PATIENT MAY BE READY TO DISCHARGE IN THE NEXT DAY OR TWO... Original Note: PATIENT ADMITTED TO [facility] WITH PYELONEPHRITIS AND IS A [employer] PATIENT.. PATIENT RESIDES AT HOME AND THE NURSE WENT TO SEE HER AND PATIENT REQUESTED TO COME TO THE HOSPITAL.. HOSPICE IS RELATING HER STAY WITH THEM HAVING HER PRIMARY DIAGNOSIS OF PROTEIN MAL NUTRITION.. HER PRESENTING PROBLEM TO [facility] WAS CHEST PAIN, NAUSEA, VOMITING AND SHORTNESS OF AIR. DISCHARGE IS UNCERTAIN AT THIS TIME BUT SHOULD BE A SHORT STAY...I WILL KEEP HOSPICE INFORMED OF DISCHARGE WHEN PATIENT IS READY.
--- NOTE | 2021-09-25 13:03 | PC.NURSE ---
Received order from Dr. Patrick to continue IV ABT that were prescribed in the ED. Also made Dr. Patrick aware that pt refused am po meds. Pt also will not leave on nasal cannula, sats checked and 96% on RA. NAD. Pt resting peacefully at this time. Mx continues.
[2021-09-26] VITALS: BP 150/90; PULSE 119; RESP 20; TEMP 36.8; O2SAT 95
[2021-09-26 04:00] VITALS: BP 152/92; PULSE 110; RESP 20; TEMP 36.6; O2SAT 96; BMI 27.4
--- NOTE | 2021-09-26 06:21 | PC.NURSE ---
Pt has refused all meds this shift. Attempted to crush meds in pudding pt still refused. Pt also refused am blood work and was being combative with lab.
--- NOTE | 2021-09-26 07:38 | HMH.ACPN2 ---
Internal Medicine - PN: Subj *Date: 09/26/21 *Time: 08:46 Interval history: No acute events overnight. Has remained afebrile since yesterday midday. Blood pressure remains elevated. Stable oxygen requirement. Still awaiting labs for this morning. Will review when they return. Culture still pending. Exam Vital signs and Labs for Last 24 Hours: Temp Pulse Resp BP Pulse Ox 97.9 F 110 H 20 152/92 H 96 09/26/21 04:00 09/26/21 04:00 09/26/21 04:00 09/26/21 04:00 09/26/21 04:00 Laboratory Results - last 24 hr 09/25/21 06:48: WBC 8.0 D, RBC 3.22 L, Hgb 10.1 L D, Hct 30.5 L, MCV 94.7, MCH 31.5 H, MCHC 33.3, RDW 14.2, Plt Count 278, MPV 8.6, Neut % (Auto) 74.7, Lymph % (Auto) 19.0, [place] % (Auto) 5.4, Eos % (Auto) 0.4, Baso % (Auto) 0.5, Neut # (Auto) 6.0, Lymph # (Auto) 1.5, [place] # (Auto) 0.4, Eos # (Auto) 0.0, Baso # (Auto) 0.0 09/25/21 06:48: Sodium 138, Potassium 3.2 L, Chloride 103, Carbon Dioxide 30, Anion Gap 8.2, BUN 14, Creatinine 1.00, Estimated Creat Clear 48, Estimated GFR 53 L, Est GFR ( Amer) 64, Glucose 123 H, Calcium 10.2 I & O for Last 24 hours: Intake & Output 09/23/21 09/24/21 09/25/21 09/26/21 23:59 23:59 23:59 23:59 Intake Total 120 / 120 Output Total 1700 / 2200 500 / 500 Balance -1580 / -2080 -500 / -500 Weight 72.575 kg 73 kg 73 kg Microbiology Reports for the Last 24 Hours: Microbiology 09/24/21 21:03 Urine,Catheterized Urine Culture - Preliminary NO GROWTH AFTER 24 HOURS Narrative: - Constitutional thin, cachectic, chronically ill appearing - *Routine HEENT Exam Head: Present: normocephalic Eye: Present: EOMI, PERRL ENT: Present: mucous membranes dry. Absent: dentition normal - *Routine Neck Exam Present: supple. Absent: lymphadenopathy - *Routine Respiratory Exam Present: rhonchi - *Routine Cardiovascular Exam Present: RRR - *Routine Abdominal Exam Present: soft, normoactive bowel sounds. Absent: tenderness - *Routine Extremities Exam Absent: cyanosis, clubbing, edema - *Routine Skin Exam Present: dry, warm. Absent: rash - *Routine Neurological Exam Present: alert, CN II-XII intact Patient oriented to self, not place or time. Assessment and Plan (1) Hypokalemia Status: Acute Category: Medical Code(s): E87.6 - Hypokalemia (2) Pyelonephritis Status: Acute Category: Medical Code(s): N12 - Tubulo-interstitial nephritis, not specified as acute or chronic (3) UTI (urinary tract infection) Status: Acute Qualifiers: Urinary tract infection type: acute cystitis Hematuria presence: with hematuria Qualified Code(s): N30.01 - Acute cystitis with hematuria Category: Medical Code(s): N39.0 - Urinary tract infection, site not specified - Assessment and plan all Dx Assessment and Plan for all problems:: 86-year-old female on hospice for severe protein calorie malnutrition, failure to thrive. Admitted for pyelonephritis. Culture still pending. Continue antibiotics. Patient comfortable this morning but not eating or drinking very much. If remains stable and culture speciate for the ability to transition to more definitive antibiotic therapy in the next 24 hours, will attempt to discharge home with hospice in the next 24 to 48 hours. Continues to require inpatient management at this time.
[2021-09-26 08:00] VITALS: BP 155/78; PULSE 117; RESP 24; TEMP 36.7; O2SAT 92
[2021-09-26 10:52] LABS: Basophils % 0.6 % (0.1-2.0); Eosinophils % 0.6 % (0.1-12.0); Hematocrit 29.5 % (37.0-47.0); Hemoglobin 9.7 g/dL (12.2-16.2); Lymphocytes # 1.1 K/mm3 (0.7-4.5); Lymphocytes % 16.4 % (10-50); Mean Corpuscular Hemoglobin 31.3 pg (27.0-31.2); Mean Corpuscular Volume 94.8 fl (81-99); Mean Platelet Volume 8.5 fl (7.4-10.4); Monocytes # 0.4 K/mm3 (0.1-1.0); Monocytes % 5.9 % (1.7-9.3); Neutrophils % 76.5 % (37.0-80.0); Platelet Count 320 K/mm3 (142-424); Red Blood Count 3.11 M/mm3 (4.20-5.40); Red Cell Distribution Width 14.2 % (11.5-17.5); White Blood Count 6.5 K/mm3 (4.8-10.8)
[2021-09-26 11:02] LABS: Blood Urea Nitrogen 12 mg/dl (7-17); Calcium 9.5 mg/dl (8.4-10.2); Carbon Dioxide 27 mmol/L (22.0-30.0); Chloride 103 mmol/L (98-107); Creatinine Clearance Estimated 48 mL/min (50-200); Estimated Glomerular Filt Rate 68 ml/min (>60); GFR (African American) 83 ML/MIN (>60); Glucose 152 mg/dl (74-100); Magnesium 1.1 mg/dl (1.6-2.3); Sodium 140 mmol/L (136-145)
[2021-09-26 16:00] VITALS: BP 163/99; PULSE 127; RESP 19; TEMP 36.4; O2SAT 97
--- NOTE | 2021-09-26 19:37 | PC.NURSE ---
PT WAS AGREEABLE TO MOST MEDICATIONS THIS SHIFT AND ALLOWED THIS RN TO PERFORM FSBS. AOX1 TO SELF. CHRONIC ACUNA IN PLACE. MEDS WERE CRUSHED AND PLACED IN APPLESAUCE
[2021-09-26 20:00] VITALS: BP 178/94; PULSE 109; RESP 20; TEMP 36.4; O2SAT 96
[2021-09-27 04:00] VITALS: BP 174/102; PULSE 114; RESP 18; TEMP 36.7; O2SAT 95
[2021-09-27 05:00] VITALS: BMI 27.8
--- NOTE | 2021-09-27 06:22 | PC.NURSE ---
pt restless most of night, pts family requested for MD to call them today with update, pts family also stated that pt uses a fentanyl patch at home, noted elevated B/p's throughout admission. pts diastolic readings 90-110, pt had been refusing to take PO meds and one dose of metoprolol given yesterday
[2021-09-27 08:00] VITALS: BP 162/98; PULSE 74; RESP 16; TEMP 36.7; O2SAT 93
--- NOTE | 2021-09-27 08:09 | HMH.ACPN2 ---
Internal Medicine - PN: Subj *Date: 09/27/21 *Time: 08:09 Interval history: Overall patient has been pleasant overnight. Still does not wish to eat. Reports that she is feeling better. Exam Vital signs and Labs for Last 24 Hours: Temp Pulse Resp BP Pulse Ox 98.1 F 74 16 162/98 H 93 L 09/27/21 08:00 09/27/21 08:00 09/27/21 08:00 09/27/21 08:00 09/27/21 08:00 Laboratory Results - last 24 hr 09/26/21 10:43: WBC 6.5, RBC 3.11 L, Hgb 9.7 L, Hct 29.5 L, MCV 94.8, MCH 31.3 H, MCHC 33.0, RDW 14.2, Plt Count 320, MPV 8.5, Neut % (Auto) 76.5, Lymph % (Auto) 16.4, [place] % (Auto) 5.9, Eos % (Auto) 0.6, Baso % (Auto) 0.6, Neut # (Auto) 5.0, Lymph # (Auto) 1.1, [place] # (Auto) 0.4, Eos # (Auto) 0.0, Baso # (Auto) 0.0 09/26/21 10:43: Sodium 140, Potassium 3.0 L, Chloride 103, Carbon Dioxide 27, Anion Gap 13.0, BUN 12, Creatinine 0.80, Estimated Creat Clear 48, Estimated GFR 68, Est GFR ( Amer) 83 D, Glucose 152 H, Calcium 9.5 09/26/21 10:43: Magnesium 1.1 L I & O for Last 24 hours: Intake & Output 09/24/21 09/25/21 09/26/21 09/27/21 11:59 11:59 11:59 11:59 Intake Total 120 / 120 1120 / 1120 Output Total 1000 / 1000 1200 / 1200 725 / 725 Balance -880 / -880 -1200 / -1200 395 / 395 Weight 160 lb 0.008 oz 160 lb 14.999 oz 162 lb 11.218 oz Microbiology Reports for the Last 24 Hours: Microbiology 09/24/21 23:29 Blood Blood Culture - Preliminary NO GROWTH AFTER 48 HOURS 09/24/21 23:29 Blood Blood Culture - Preliminary NO GROWTH AFTER 48 HOURS 09/24/21 21:03 Urine,Catheterized Urine Culture - Preliminary Narrative: Is alert when awakened. Breathing easily. Heart rate regular. Abdomen soft, nontender. Neurologically very weak but no focal deficits. Oriented x2. Assessment and Plan (1) Hypokalemia Status: Acute Category: Medical Code(s): E87.6 - Hypokalemia (2) Pyelonephritis Status: Acute Category: Medical Code(s): N12 - Tubulo-interstitial nephritis, not specified as acute or chronic (3) UTI (urinary tract infection) Status: Acute Qualifiers: Urinary tract infection type: acute cystitis Hematuria presence: with hematuria Qualified Code(s): N30.01 - Acute cystitis with hematuria Category: Medical Code(s): N39.0 - Urinary tract infection, site not specified - Assessment and plan all Dx Assessment and Plan for all problems:: Improved status on antibiotics. Await culture results. Plan for discharge home with hospice tomorrow once culture results are known and appropriate antibiotic therapy can be determined.
--- NOTE | 2021-09-27 13:24 | PC.NURSE ---
PT IS RESTING IN BED ON HER LT SIDE AT THIS TIME. PT REFUSED PO MEDICATIONS THIS MORNING. FAMILY CALLED FOR AN UPDATE ON PT THIS MORNING AND STATED THAT PT HAS BEEN REFUSING MEDICATIONS AT HOME WELL. PT ONLY ATE A FEW BITES FOR BREAKFAST AND LUNCH AND STATED SHE DID NOT WANT ANYMORE TO EAT. ACCORDING TO FAMILY PT HAS HAD PERIODS WHERE SHE IS VERY UNCOOPERATIVE WITH CARE AT HOME. LUNG SOUNDS CLEAR. ABDOMEN SOFT/NON TENDER WITH ACTIVE BOWEL SOUNDS. PT WILL ANSWER SIMPLE YES OR NO QUESTIONS. WILL CONTINUE TO MONITOR.
--- NOTE | 2021-09-27 14:04 | DIET.NUTRFU ---
Pt has tolerated minimal PO intake refusing most meals. She may have any additional snacks/supplements as desired. Weight stable, BG moderate avg. 140. Pt to dc home with hospice tomorrow.
[2021-09-27 15:23] VITALS: BP 144/90; PULSE 108; RESP 18; TEMP 36.8; O2SAT 94
[2021-09-27 20:00] VITALS: BP 169/112; PULSE 112; RESP 18; TEMP 36.8; O2SAT 96
[2021-09-28 01:34] LABS: POC Glucose,Bedside 123 (70-110)
[2021-09-28 01:34] LABS: POC Glucose,Bedside 150 (70-110)
[2021-09-28 01:34] LABS: POC Glucose,Bedside 170 (70-110)
[2021-09-28 01:34] LABS: POC Glucose,Bedside 114 (70-110)
[2021-09-28 01:34] LABS: POC Glucose,Bedside 118 (70-110)
[2021-09-28 04:00] VITALS: BP 153/88; PULSE 124; RESP 22; TEMP 37.1; O2SAT 96
--- NOTE | 2021-09-28 04:56 | PC.NURSE ---
pt confused and has been restless all night, pt refusing to take meds and spits them back out when attempting to give. Was able to get pt to take lorazepam but would not take anymore meds after that. pt pulled IV out. Pt oriented to name only.
[2021-09-28 06:26] LABS: POC Glucose,Bedside 110 (70-110)
[2021-09-28 07:36] VITALS: BP 189/97; PULSE 111; RESP 20; TEMP 36.6; O2SAT 97
--- NOTE | 2021-09-28 08:49 | HMH.DCSUM ---
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 I am unsure what her baseline status is and there is no family at bedside. Patient is not a reliable historian. Differential diagnosis includes, but is not limited to, trauma, underlying infection such as COVID-19, pneumonia, intra-abdominal infection, urinary tract infection, pyelonephritis, sepsis or bacteremia. On initial evaluation, patient is hemodynamically stable and afebrile. Physical exam reveals a soft and nontender abdomen. No trauma noted to extremities and no abrasions, lacerations to face, neck, chest. Patient was evaluated with broad work-up which showed elevated white blood cell count of 11, hypokalemia and UA positive for infection. Negative troponin without a delta. Patient was given 1 g of ceftriaxone and potassium was replaced in the emergency department. In addition, CT imaging showed concern for pyelonephritis and bilateral pleural effusions. Given patient's complicated medical history, she was admitted for inpatient treatment with IV antibiotics. Above note per ER. Patient has been on hospice care at home recently, has been in and out of nursing homes over the past several years because of recurrent UTI/pyelonephritis/history of pneumonias. Patient this morning is awake, states that she feels okay but has some back pain Hospital Course Hospital Course: Patient was admitted, found to have pyelonephritis/UTI issues. Started on ceftriaxone and clinically improved. Urine culture was done, pending at the time of discharge but has 2 different gram-negative rae species. Patient is on hospice care at home, family was consulted and wishes her to return home with hospice care and hospice nurses are made aware. This morning she is reached really maximal medical improvement. She has been refusing food and fluids as well as her meds, but overall feels much better and denies abdominal pain. Her exam was improved vis-?-vis abdominal discomfort issues, and we will discharge her back on Omnicef twice daily for a week, obviously will change therapy based on culture results. Hospice care will continue. Objective Vital signs: Temp Pulse Resp BP Pulse Ox 97.8 F 111 H 20 189/97 H 97 09/28/21 07:36 09/28/21 07:36 09/28/21 07:36 09/28/21 07:36 09/28/21 07:36 mild distress, thin, chronically ill appearing - *Routine HEENT Exam Head: Present: normocephalic Eye: Present: EOMI, PERRL ENT: Present: mucous membranes moist - *Routine Neck Exam Present: supple - *Routine Respiratory Exam Present: CTA bilaterally - *Routine Cardiovascular Exam Present: RRR - *Routine Abdominal Exam Present: soft, normoactive bowel sounds. Absent: tenderness - *Routine Extremities Exam Absent: cyanosis, clubbing, edema - *Routine Skin Exam Present: warm. Absent: rash - Detailed Eye Exam Eyelids: Bilateral normal inspection Results Labs on day of discharge: Labs from last 24 hours 09/28/21 09/27/21 09/26/21 06:11 21:17 21:31 POC Glucose 110 118 H 150 H Urine Color Urine Appearance Urine pH Ur Specific [place] Urine Protein Urine Glucose (UA) Urine Ketones Urine Blood Urine Nitrate Urine Bilirubin Urine Urobilinogen Ur Leukocyte Esterase Urine RBC Urine WBC 09/26/21 09/26/21 09/25/21 16:59 05:31 21:05 POC Glucose 170 H 123 H 114 H Urine Color Urine Appearance Urine pH Ur Specific [place] Urine Protein Urine Glucose (UA) Urine Ketones Urine Blood Urine Nitrate Urine Bilirubin Urine Urobilinogen Ur Leukocyte Esterase Urine RBC Urine WBC 09/24/21 21:03 POC Glucose Urine Color Yellow Urine
== END 2021-09-28 11:27 | disposition hospice, home (50) | DRG 689 ==
LOC: ER 09-25 00:37 → 2ND 09-25 03:05
PROVIDERS: Internal Medicine Adolescent Medicine; Admitting Provider Family Medicine; Emergency Provider Emergency Medicine; PCP Internal Medicine Adolescent Medicine; Visit Provider Internal Medicine Adolescent Medicine
DX: N10 Acute pyelonephritis (principal); E43 Unspecified severe protein-calorie malnutrition; Z20.822 Contact with and (suspected) exposure to COVID-19; Z90.5 Acquired absence of kidney; E87.6 Hypokalemia; Z87.440 Personal history of urinary (tract) infections; Z51.5 Encounter for palliative care; I11.0 Hypertensive heart disease with heart failure; I50.9 Heart failure, unspecified; E11.51 Type 2 diabetes mellitus with diabetic peripheral angiopathy without gangrene; E03.9 Hypothyroidism, unspecified; Z87.891 Personal history of nicotine dependence; Z68.27 Body mass index [BMI] 27.0-27.9, adult; Z79.4 Long term (current) use of insulin
CPT/HCPCS: 36415; 70450; 71045; 71275; 72125; 72127; 72170; 74177; 80048; 80053; 81001; 82962; 83605; 83690; 83735; 84436; 84443; 84484; 85025; 85610; 87040; 87086; 87088; 87186; 96365; 96375; 99284; C9803; Q9967; U0003; U0005